=== PATIENT | female | born 1960 | race Caucasian/White ===

== ENCOUNTER 2020-03-09 07:52 | Outpatient (REF) | payer OTHER, SELFPAY ==
[2020-03-09 08:34] LABS: MANUAL DIFF FLAG NO
[2020-03-09 08:39] LABS: Basophils Percent Auto 0.4 % (0-2); Eosinophils Absolute Auto 0.2 X10*3/uL (0.0-0.4); Eosinophils Percent Auto 4.8 % (0-4); Hematocrit 40.1 % (37-47); Hemoglobin 12.9 g/dl (12.0-16.0); Imm Gran Abs Auto 0.01 X10*3/uL (0.00-0.03); Imm Gran Pct Auto 0.2 % (0.0-0.4); Lymphocytes Absolute Auto 1.7 X10*3/uL (1.2-4.9); Lymphocytes Percent Auto 37.7 % (20-40); Mean Corpuscular HGB Conc 32.2 g/dl (31.0-35.0); Mean Corpuscular Hemoglobin 30.1 pg (27.0-33.0); Mean Corpuscular Volume 93.7 fL (80-98); Mean Platelet Volume 9.1 fL (9.4-12.3); Monocytes Absolute Auto 0.3 X10*3/uL (0.1-1.2); Monocytes Percent Auto 7.2 % (2-11); Neutrophils Absolute Auto 2.3 X10*3/uL (2.0-8.3); Neutrophils Percent Auto 49.7 % (45-73); Platelet Count 314 X10*3/uL (160-400); Red Blood Count 4.28 X10*6/uL (4.20-5.50); Red Cell Distribution Width 13.4 % (11.0-16.0); White Blood Count 4.6 X10*3/uL (4.8-10.8)
[2020-03-09 08:54] LABS: Estimated Average Glucose 108 mg/dL; Hemoglobin A1c % 5.4 %
[2020-03-09 09:09] LABS: Alanine Aminotransferase 16 U/L (0-31); Albumin Level 4.4 g/dL (3.5-5.0); Alkaline Phosphatase 82 U/L (39-117); Anion Gap 12 (12-20); Aspartate Amino Transferase 19 U/L (5-31); Bilirubin Total 0.6 mg/dL (0.0-1.0); Blood Urea Nitrogen 19 mg/dL (9-16); Calcium 10.5 mg/dL (8.4-10.2); Carbon Dioxide 28 mmol/L (22-29); Chloride 103 mmol/L (96-108); Cholesterol 250 mg/dL; Estimated Glomerular Filt Rate > 60; Glucose Random 95 mg/dL (60-115); HDL Cholesterol 60 mg/dL; LDL Cholesterol Calculated 162 mg/dl; Magnesium 2.1 mg/dL (1.6-2.6); Potassium 4.5 mmol/l (3.3-5.1); Sodium 138 mmol/L (135-145); Total Protein 7.2 g/dL (6.5-8.0); Triglycerides 142 mg/dL
[2020-03-09 09:26] LABS: Thyroid Stimulating Hormone 4.96 uIU/mL (0.32-4.0); Vitamin D 25-OH Total 29.3 ng/mL (>30)
[2020-03-09 09:28] LABS: HIV AB/AG Nonreactive (Nonreactive); HIV Num 1 0.13 S/CO (0.00-0.99); ~HepC Num1 0.07 S/CO (0.00-0.79); ~Hepatitis C Antibody Nonreactive (Nonreactive)
[2020-03-10 13:06] LABS: Calcium (PTHI) 10.9 mg/dL (8.6-10.4); PTHI 61 pg/mL (14-64)
== END 2020-03-09 07:53 | disposition home or self-care (01) ==
LOC: HO.LAB 07:52
PROVIDERS: PCP Internal Medicine; Visit Provider Internal Medicine
DX: E78.2 Mixed hyperlipidemia (principal); R73.01 Impaired fasting glucose; R00.2 Palpitations; R63.5 Abnormal weight gain; E21.3 Hyperparathyroidism, unspecified; Z11.59 Encounter for screening for other viral diseases
CPT/HCPCS: 36415; 80053; 80061; 82306; 83036; 83735; 83970; 84443; 85025; 86803; 87389

== ENCOUNTER 2020-03-10 13:18 | Outpatient (REF) | payer OTHER, SELFPAY ==
[2020-03-10 13:24] VITALS: BMI 33.6
[2020-03-10 13:27] VITALS: BP 134/73; PULSE 81; RESP 18; O2SAT 98
[2020-03-10 14:31] VITALS: BP 130/75; PULSE 65; TEMP 37.6; O2SAT 99
--- NOTE | 2020-03-10 15:12 | W.PM.OPN ---
Operative Note Operative Note Narrative: Preoperative diagnosis: Cyst of scalp Postoperative diagnosis: Same Procedure: Excision of cyst of scalp Anesthesia: Local 1% lidocaine with epinephrine 4 cc Estimated blood loss: 3 cc Specimen: 2 cysts of scalp Immediate complications: None Indications: This is a 59-year-old female who has a history of an enlarging cyst of her posterior scalp. She has developed tenderness associated with it and excision is planned. She is familiar with the technique and risks of infection bleeding and scarring. Procedure in detail: With her in the prone position, after performing time-out procedure and identifying the location of the cyst, the hair overlying the cyst was trimmed. The area was then prepped with Betadine solution and was draped sterilely. Skin and subcutaneous tissues overlying the cyst were infiltrated with local anesthetic. Incision was made over the central aspect and was carried down into the immediate subcutaneous tissues. The cyst was identified and was dissected free. In the process, the was said determined that there were 2 cysts and each was dissected free and removed in entirety. Both were ruptured during dissection. There was no significant bleeding from the wound. The wound was irrigated with saline solution and was closed with interrupted sutures of 300 surgery pro. The area was cleansed with saline solution and bacitracin ointment was applied. She tolerated the procedure well. She will keep the area dry for 24 hours, will use acetaminophen as needed for pain, and will be seen in the office in about 1 week for wound check and suture removal.
== END 2020-03-10 13:19 | disposition home or self-care (01) ==
LOC: HO.MS 13:18
PROVIDERS: PCP Internal Medicine; Visit Provider Surgery
DX: L72.11 Pilar cyst (principal)
CPT/HCPCS: 11421; 11422; 88304

== ENCOUNTER 2020-03-29 07:30 | Outpatient (REF) | payer OTHER, SELFPAY ==
--- NOTE | 2020-03-29 07:35 | MM_ITS ---
EXAMINATION: MM SCREENING DIGITAL BREAST TOMOSYNTHESIS, BILATERAL CLINICAL INFORMATION: Screening. Asymptomatic. Family history breast cancer mother age 45, sister age 38. The lifetime risk of breast cancer based on the Tyrer-Cuzick Model is 24%. COMPARISON: Mammography: 03/06/2019, 02/27/2018, 12/15/2016, 09/17/2014; MRI breast report 11/29/2015 TECHNIQUE: Digital breast tomosynthesis is performed in both the craniocaudal and mediolateral oblique views along with computer-aided detection (CAD). Synthesized 2D images are generated from the tomosynthesis. FINDINGS: There are scattered areas of fibroglandular density (ACR BI-RADS breast composition Category b). There are no significant masses, abnormal calcifications, or other abnormalities. Parenchymal pattern is similar to prior studies. There are biopsy clip markers again seen mid upper outer left breast and 3:00 left breast. The axilla and skin contours are unremarkable. No significant changes from prior studies. MM/MM tomosynthesis screening BI IMPRESSION: No mammographic evidence of malignancy. ASSESSMENT: BI-RADS 1: Negative RECOMMENDATION: 1. Routine annual mammography screening. 2. The lifetime risk of breast cancer based on the Tyrer-Cuzick Model is 24%. Additional annual adjunct screening with breast MRI may be of benefit in women with a risk score of 20% or greater. This patient's information was entered into a reminder system with a target due date for their next mammogram.
== END 2020-03-29 07:31 | disposition home or self-care (01) ==
LOC: HO.MAMMO 07:30
PROVIDERS: PCP Internal Medicine; Visit Provider Surgery
DX: Z12.31 Encounter for screening mammogram for malignant neoplasm of breast (principal)
CPT/HCPCS: 77063; 77067

== ENCOUNTER 2020-11-05 11:00 | Outpatient (RCR) | payer OTHER, SELFPAY | END 2020-12-08 09:47 | disposition home or self-care (01) | LOC: HO.PT 11:00 | PROVIDERS: PCP Internal Medicine; Visit Provider Podiatrist | DX: M72.2 Plantar fascial fibromatosis (principal) | CPT/HCPCS: 97033; 97035; 97110; 97140; 97161; 97535 ==

== ENCOUNTER 2020-12-24 08:03 | Outpatient (REF) | payer OTHER, SELFPAY ==
[2020-12-24 08:50] LABS: Alanine Aminotransferase 26 U/L (0-31); Albumin Level 4.4 g/dL (3.5-5.0); Alkaline Phosphatase 76 U/L (39-117); Anion Gap 10 (12-20); Aspartate Amino Transferase 20 U/L (5-31); Bilirubin Total 0.5 mg/dL (0.0-1.0); Blood Urea Nitrogen 22 mg/dL (9-16); Calcium 10.3 mg/dL (8.4-10.2); Carbon Dioxide 27 mmol/L (22-29); Chloride 110 mmol/L (96-108); Cholesterol 259 mg/dL; Estimated Glomerular Filt Rate > 60; Glucose Random 103 mg/dL (60-115); HDL Cholesterol 63 mg/dL; LDL Cholesterol Calculated 177 mg/dl; Potassium 4.2 mmol/L (3.3-5.1); Sodium 143 mmol/L (135-145); Total Protein 6.9 g/dL (6.5-8.0); Triglycerides 99 mg/dL
[2020-12-24 09:10] LABS: Thyroid Stimulating Hormone 4.65 uIU/mL (0.32-4.0)
== END 2020-12-24 08:04 | disposition home or self-care (01) ==
LOC: HO.LAB 08:03
PROVIDERS: PCP Internal Medicine; Visit Provider Internal Medicine
DX: E03.9 Hypothyroidism, unspecified (principal); E83.52 Hypercalcemia; E78.00 Pure hypercholesterolemia, unspecified
CPT/HCPCS: 36415; 80053; 80061; 84443

== ENCOUNTER → 2021-01-27 08:56 | Outpatient (REF) | payer OTHER, SELFPAY ==
--- NOTE | ~2021-01-27 | NM_ITS ---
EXAMINATION: OK THREE-PHASE BONE SCAN CLINICAL INFORMATION: Stress fracture right foot, initial encounter for fracture. No injury. Low back pain on and off. COMPARISON: None TECHNIQUE: Following intravenous administration of 32 mCi of 99m-technetium MDP, a three-phase bone scan of both feet was obtained. In addition to whole-body, third phase was performed. FINDINGS: On first phase of bone scan, there is normal symmetrical perfusion seen to both feet. On second phase of bone scan, no abnormal blood pool activity seen in either foot. On third phase of bone scan, there is increased activity seen along the right calcaneal heel likely related to an enthesophyte or bursitis. There are no right foot x-rays available for comparison. The three-phase bone scan left foot is unremarkable. On whole body third phase imaging, there is no abnormal activity seen in the rest of the whole body scan. OK/OK bone 3 phase IMPRESSION: Three-phase bone scan of both feet. On third phase bone scan, there is moderate activity seen along the right calcaneal heel likely related to calcaneal heel spur or calcaneal bursitis. There are no right foot x-rays available for comparison. Correlate with x-rays. The rest of the whole body appears unremarkable.
== END ==
LOC: HO.NUCMED 08:56
PROVIDERS: PCP Internal Medicine; Visit Provider Podiatrist
DX: M84.374A Stress fracture, right foot, initial encounter for fracture (principal); X58.XXXA Exposure to other specified factors, initial encounter; Y93.9 Activity, unspecified; Y92.9 Unspecified place or not applicable; Y99.9 Unspecified external cause status
CPT/HCPCS: 78315; A9503

== ENCOUNTER 2021-06-14 07:40 | Outpatient (REF) | payer OTHER, SELFPAY ==
--- NOTE | ~2021-06-14 | MM_ITS ---
EXAMINATION: MM SCREENING DIGITAL BREAST TOMOSYNTHESIS, BILATERAL CLINICAL INFORMATION: Screening. Asymptomatic. Family history premenopausal breast cancer, mother and sister The lifetime risk of breast cancer based on the Tyrer-Cuzick Model is 17%. COMPARISON: Mammography: 03/29/2020, 03/06/2019, 02/27/2018 TECHNIQUE: Digital breast tomosynthesis is performed in both the craniocaudal and mediolateral oblique views along with computer-aided detection (CAD). Synthesized 2D images are generated from the tomosynthesis. FINDINGS: There are scattered areas of fibroglandular density (ACR BI-RADS breast composition Category b). Parenchymal pattern is similar to prior studies. There is no interval significant mass or architectural abnormality or developing density. There are 2 biopsy clip markers again noted left breast mid central 3:00 and mid upper outer quadrant. There are scattered benign round and rim and coarse calcifications again seen. The axilla and skin contours are unremarkable. MM/MM tomosynthesis screening BI IMPRESSION: No mammographic evidence of malignancy. ASSESSMENT: BI-RADS 2: Benign RECOMMENDATION: Routine annual mammography screening. This patient's information was entered into a reminder system with a target due date for their next mammogram.
== END 2021-06-14 07:41 | disposition home or self-care (01) ==
LOC: HO.MAMMO 07:40
PROVIDERS: Visit Provider Internal Medicine
DX: Z12.31 Encounter for screening mammogram for malignant neoplasm of breast (principal)
CPT/HCPCS: 77063; 77067

== ENCOUNTER 2022-01-12 08:00 | Outpatient (REF) | payer OTHER, SELFPAY ==
[2022-01-12 09:53] LABS: Alanine Aminotransferase 22 U/L (0-31); Albumin Level 4.3 g/dL (3.5-5.0); Alkaline Phosphatase 89 U/L (39-117); Anion Gap 13 (12-20); Aspartate Amino Transferase 22 U/L (5-31); Bilirubin Total 0.5 mg/dL (0.0-1.0); Blood Urea Nitrogen 19 mg/dL (9-16); Calcium 10.5 mg/dL (8.4-10.2); Carbon Dioxide 28 mmol/L (22-29); Chloride 106 mmol/L (96-108); Cholesterol 263 mg/dL; Estimated Glomerular Filt Rate > 60; Glucose Random 92 mg/dL (60-115); HDL Cholesterol 56 mg/dL; LDL Cholesterol Calculated 192 mg/dl; Potassium 4.5 mmol/L (3.3-5.1); Sodium 142 mmol/L (135-145); Total Protein 7.2 g/dL (6.5-8.0); Triglycerides 76 mg/dL
== END 2022-01-12 08:01 | disposition home or self-care (01) ==
LOC: HO.LAB 08:00
PROVIDERS: PCP Internal Medicine; Visit Provider Internal Medicine
DX: E78.00 Pure hypercholesterolemia, unspecified (principal); R03.0 Elevated blood-pressure reading, without diagnosis of hypertension
CPT/HCPCS: 36415; 80053; 80061

== ENCOUNTER 2022-03-20 09:24 | Outpatient (REF) | payer OTHER, SELFPAY ==
[2022-03-20 10:59] LABS: Alanine Aminotransferase 23 U/L (0-31); Aspartate Amino Transferase 23 U/L (5-31); Cholesterol 179 mg/dL; Free T4 (Free Thyroxine) 0.99 ng/dL (0.71-1.85); HDL Cholesterol 58 mg/dL; LDL Cholesterol Calculated 106 mg/dl; Thyroid Stimulating Hormone 3.73 uIU/mL (0.32-4.0); Triglycerides 78 mg/dL
== END 2022-03-20 09:25 | disposition home or self-care (01) ==
LOC: HO.LAB 09:24
PROVIDERS: PCP Internal Medicine; Visit Provider Internal Medicine
DX: E78.00 Pure hypercholesterolemia, unspecified (principal); E03.9 Hypothyroidism, unspecified
CPT/HCPCS: 36415; 80061; 84439; 84443; 84450; 84460

== ENCOUNTER 2022-07-08 08:33 | Outpatient (REF) | payer OTHER, SELFPAY ==
--- NOTE | ~2022-07-08 | MM_ITS ---
EXAMINATION: MM SCREENING DIGITAL BREAST TOMOSYNTHESIS, BILATERAL CLINICAL INFORMATION: Screening. Asymptomatic. Family history breast cancer, mother, sister. The lifetime risk of breast cancer based on the Tyrer-Cuzick Model is 17%. COMPARISON: Mammography: 06/14/2021, 03/29/2020, 03/06/2019, 02/09/2018 TECHNIQUE: Digital breast tomosynthesis is performed in both the craniocaudal and mediolateral oblique views along with computer-aided detection (CAD). Synthesized 2D images are generated from the tomosynthesis. FINDINGS: There are scattered areas of fibroglandular density (ACR BI-RADS breast composition Category b). There are no significant masses, abnormal calcifications, or other abnormalities. No architectural abnormality or developing density or significant change from prior studies. There are 2 biopsy clip markers central and outer left breast. The axilla are unremarkable. MM/MM tomosynthesis screening BI IMPRESSION: No mammographic evidence of malignancy. ASSESSMENT: BI-RADS 1: Negative RECOMMENDATION: Routine annual mammography screening. This patient's information was entered into a reminder system with a target due date for their next mammogram.
== END 2022-07-08 08:34 | disposition home or self-care (01) ==
LOC: HO.MAMMO 08:33
PROVIDERS: Visit Provider Internal Medicine
DX: Z12.31 Encounter for screening mammogram for malignant neoplasm of breast (principal)
CPT/HCPCS: 77063; 77067

== ENCOUNTER 2023-01-24 10:32 | Outpatient (REF) | payer OTHER, SELFPAY ==
[2023-01-24 10:46] LABS: MANUAL DIFF FLAG NO
[2023-01-24 11:22] LABS: Basophils Percent Auto 0.5 % (0-2); Eosinophils Absolute Auto 0.3 X10*3/uL (0.0-0.4); Eosinophils Percent Auto 4.9 % (0-4); Hematocrit 39.9 % (37.0-47.0); Imm Gran Abs Auto 0.02 X10*3/uL (0.00-0.03); Imm Gran Pct Auto 0.3 % (0.0-0.4); Lymphocytes Percent Auto 33.9 % (20-40); Mean Corpuscular HGB Conc 32.6 g/dl (31.0-35.0); Mean Corpuscular Hemoglobin 30.9 pg (27.0-33.0); Mean Corpuscular Volume 94.8 fL (80.0-98.0); Mean Platelet Volume 9.3 fL (9.4-12.3); Monocytes Absolute Auto 0.4 X10*3/uL (0.1-1.2); Monocytes Percent Auto 6.2 % (2-11); Neutrophils Absolute Auto 3.2 x10*3/uL (2.0-8.3); Neutrophils Percent Auto 54.2 % (45-73); Platelet Count 303 X10*3/uL (160-400); Red Blood Count 4.21 X10*6/uL (4.20-5.50); Red Cell Distribution Width 13.5 % (11.0-16.0)
[2023-01-24 13:22] LABS: Alanine Aminotransferase 22 U/L (0-31); Albumin Level 4.2 g/dL (3.5-5.0); Alkaline Phosphatase 92 U/L (39-117); Anion Gap 11 (12-20); Aspartate Amino Transferase 24 U/L (5-31); Bilirubin Total 0.5 mg/dL (0.0-1.0); Blood Urea Nitrogen 17 mg/dL (9-16); Calcium 10.6 mg/dL (8.4-10.2); Carbon Dioxide 28 mmol/L (22-29); Chloride 107 mmol/L (96-108); Cholesterol 172 mg/dL (<200); Estimated Glomerular Filt Rate > 60; Glucose Random 90 mg/dL (60-115); HDL Cholesterol 54 mg/dL (>40); LDL Cholesterol Calculated 101 mg/dL (<100); Magnesium 2.2 mg/dL (1.6-2.6); Potassium 4.1 mmol/L (3.3-5.1); Sodium 142 mmol/L (135-145); Total Protein 7.2 g/dL (6.5-8.0); Triglycerides 88 mg/dL (<150)
[2023-01-24 13:29] LABS: Free T4 (Free Thyroxine) 0.93 ng/dL (0.71-1.85); Thyroid Stimulating Hormone 4.41 uIU/mL (0.32-4.0)
== END 2023-01-24 10:33 | disposition home or self-care (01) ==
LOC: HO.LAB 10:32
PROVIDERS: PCP Internal Medicine; Visit Provider Internal Medicine
DX: E78.00 Pure hypercholesterolemia, unspecified (principal); E21.3 Hyperparathyroidism, unspecified
CPT/HCPCS: 36415; 80053; 80061; 83735; 84439; 84443; 85025

== ENCOUNTER 2023-01-29 11:33 | Outpatient (REF) | payer OTHER, SELFPAY ==
--- NOTE | ~2023-01-29 | XR_ITS ---
EXAMINATION: XR CHEST CLINICAL INFORMATION: Intermittent hemoptysis for 3 to 4 months. COMPARISON: None available. TECHNIQUE: 2 views of the chest were obtained. FINDINGS: 5.4 x 3.9 cm soft tissue mass identified right paratracheal region, likely overlying the middle mediastinum on lateral view. There is mild tracheal deviation to the left. No significant hilar adenopathy. Heart size within normal limits. Pulmonary vessels within normal limits. Subcentimeter pulmonary nodular densities not excluded in the left apex and right mid lung. Bony structures are intact. XR/XR chest 2V IMPRESSION: Right paratracheal mass. Pulmonary nodules not excluded. IV contrast-enhanced CT of the chest recommended. At the time of this dictation, PSA service contacted to alert referring physician to findings and recommendations.
== END 2023-01-29 11:34 | disposition home or self-care (01) ==
LOC: HO.XRAY 11:33
PROVIDERS: PCP Internal Medicine; Visit Provider Internal Medicine
DX: R04.2 Hemoptysis (principal)
CPT/HCPCS: 71046

== ENCOUNTER 2023-02-06 14:30 | Outpatient (REF) | payer OTHER, SELFPAY ==
--- NOTE | ~2023-02-06 | CT_ITS ---
EXAMINATION: CT CHEST WITH CONTRAST CLINICAL INFORMATION: Cough. COMPARISON: None available. TECHNIQUE: Multidetector volumetric CT imaging of the chest was obtained after the administration of 50 mL of Omnipaque 350 intravenous contrast without immediate adverse reactions. Axial MIP volume rendering provided. Sagittal and coronal reformatted images were obtained. This CT examination was performed using dose optimization techniques as appropriate, variously including the following: *Automated exposure control *Adjustment of mA and/or kV according to patient size (this includes techniques or standardized protocols for targeted exams where dose is matched to indication/reason for exam; i.e. 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 LUNGS: There is a lobulated right upper lobe mass adjacent to the trachea measuring 4.9 x 4.8 x 5.4 cm. The mass extends in the right mediastinum and is in close approximation to right lateral tracheal wall, posterior wall of SVC and lateral wall of upper esophagus. There is distal right apical obstructive scarring or atelectasis. There is a 1.2 cm nodule in the right suprahilar region/lower lobe abutting the major fissure on axial slice 23/4, 4 mm nodule right lower lobe axial image 22/4, 3 mm nodules right upper lobe axial image 20/4 and 21/4, 2 mm nodule right middle lobe adjacent to the minor fissure axial image 21/4, 4 mm nodule right lower lobe laterally axial image 31/4, 6 mm nodule right middle lobe axial image 29/4, 4 mm nodules in the lingula image 32/4, 31/4. In addition there are several additional nodules seen in both lower lobes. MEDIASTINUM: Extension of right upper lobe mass in the right mediastinum adjacent to the trachea, SVC and esophagus. Small right pretracheal 1 cm lymph node is seen on axial slice 22/3 and 1 cm lymph node in anterior mediastinum on axial slice 20/3. Central trachea and the bronchi are widely patent. The thyroid lobes are symmetric and normal. Heart size is normal. No pericardial effusion seen. There are no coronary artery calcifications present. Ascending aorta measures 4.5 x 4.3 cm just above the aortic valve and is dilated. PLEURA: There is no pleural effusion. No pleural mass or thickening. AXILLA: There are small bilateral axillary lymph nodes slightly greater in number and size on the left. The largest left axillary lymph node measures 8 mm on axial slice 13/3. UPPER ABDOMEN: Visualized liver and spleen appear unremarkable. Both adrenal glands are not fully included on these images. OSSEOUS STRUCTURES: No aggressive lytic or sclerotic process seen. CT/CT chest w IV con IMPRESSION: Large right upper lobe heterogeneous mediastinal-based mass most suggestive of primary lesion. There multiple satellite lesions in both lungs with the largest lesion measuring 1.2 cm in the right suprahilar region, lower lobe. There is metastatic small lymphadenopathy in the anterior and middle mediastinum. No pleural effusion. Aneurysmal dilatation of ascending aorta. Fleischner guidelines were followed.
== END 2023-02-06 14:31 | disposition home or self-care (01) ==
LOC: HO.CT 14:30
PROVIDERS: Visit Provider Internal Medicine
DX: J90 Pleural effusion, not elsewhere classified (principal); R06.3 Periodic breathing
CPT/HCPCS: 71260; Q9967

== ENCOUNTER 2023-02-08 12:42 | Outpatient (AMB) | payer OTHER, SELFPAY ==
[2023-02-08 13:08] VITALS: BP 172/90; PULSE 84; O2SAT 98; BMI 35.5
--- NOTE | 2023-02-08 13:08 | MHC.OFFVIS ---
Intake Vital Signs 02/08/23 13:08 Height 5 ft 6 in Weight 220 lb BMI 35.5 BP 172/90 H Blood Pressure Location Lt brachial Pulse 84 Pulse Source Pulse Oximeter Pulse Oximetry (%) 98 Oxygen Delivery Method Room Air Intake Visit Reasons: Abnormal CT scan Sizing End Bander Required: No Allergies cat dander [CATS] Allergy (Mild, Unverified 02/08/23 13:09) RUNNY NOSE dog dander [DOG] Allergy (Mild, Unverified 02/08/23 13:09) ITCHY EYES SEASONAL ALLERGIES Allergy (Mild, Uncoded 02/08/23 13:09) RUNNY NOSE ENVIRONMENTAL Allergy (Unknown, Uncoded 02/08/23 13:09) RUNNY NOSE HPI HPI Comments History of Present Illness Details The patient is here for pulmonary evaluation. The patient is a 62 year woman, lifelong nonsmoker, who is an avid singular presenting with hemoptysis and worsening dyspnea symptoms for the last few months. The patient states that she has noticed that over the summer she has been having hard time with dyspnea on exertion. Mild in severity. He has become progressively worse still. She started also noticing coughing up some small amount of blood clots. She was hoping the symptoms just go away. However in view of her worsening symptoms she did talk to her primary care doctor who requested a chest x-ray. The x-ray was a very abnormal with a mass like opacity in the right side of the mediastinum. Subsequently after that she did undergo an urgent CT scan of the chest which I personally with her. She does have a significant mediastinal mass pushing on the trachea and likely affecting the esophagus some degree along with a satellite lesions bilaterally. This is a very concerning finding. The patient also has been complaining of headaches. Her blood pressure has been elevated. She is still coughing up some blood but minimal. She is also having some wheezing on examination which is new for her. I did talk to the patient about my concerns. Because of the hemoptysis will have to perform a bronchoscopy to further address the bleeding and ultimately perform a bronchoscopy with ultrasound to sample the our primary mass that is abutting the trachea. The patient also need a PET scan in view of the satellite lesions. She denies any weight loss or night sweats. Still this is very concerning finding. [facility] Medical History (Updated 02/08/23 @ 14:04 by Luis Eduardo Thompson MD) Hemoptysis Lung mass Social History (Updated 02/08/23 @ 13:10 by ARABELLA Soares) Patient Tobacco Use Status: Never used Tobacco Review of Systems Const Reports fatigue, Denies fever(s), Reports weight gain and Denies weight loss ENT Reports nasal congestion and Reports nasal discharge Card Denies chest pain and Reports dyspnea on exertion Resp Reports cough, Reports hemoptysis, Reports dyspnea on exertion and Reports wheezing GI Reports no additional complaints Musc Reports no additional complaints Skin/Breast Denies rash Neuro Reports no additional complaints Endo Reports fatigue Sabino/Lymph Denies easy bruising and Denies lymphadenopathy Aller/Immun Reports wheezing Physical Exam Vital Signs: Last Vital Signs Pulse 84 02/08/23 13:08 BP 172/90 H 02/08/23 13:08 Pulse Ox 98 02/08/23 13:08 Oxygen Delivery Method Room Air 02/08/23 13:08 BMI result Body Mass Index 35.5 Const General: comfortable HEENT Head: Yes normocephalic Neck Neck: Yes supple Chest Chest palpation & inspection: normal inspection of the chest Resp Effort & Inspection: normal respiratory effort and prolonged expiratory phase Auscultation: clear to auscultation bilaterally and wheezes Cardio Rate: regular rate Rhythm: regular rhythm Heart sounds: S1 normal heart sound present and S2 normal heart sound present GI Palpation (GI): Soft to palpation Skin General skin exam: no rashes or lesions noted Extrem General: Yes no clubbing, cyanosis or edema Assessment & Plan Assessment & Plan (1) Lung mass: Code(s): R91.8 - Other nonspecific abnormal finding of lung field (2) Hemoptysis: Code(s): R04.2 - Hemoptysis Plan PET urgent PFTs urgent EBUS urgent Orders: Orders PET CT fusion skull to thigh Today R91.8 - Other nonspecific abnormal finding of lung field PFT pulmonary function test Today R91.8 - Other nonspecific abnormal finding of lung field Coding Level of Care Code New Pt Level 5 (67867) Diagnoses Lung mass R91.8 Hemoptysis R04.2 Time Spent (min) 60
== END 2023-02-08 13:11 | disposition home or self-care (01) ==
PROVIDERS: PCP Internal Medicine; Referring Provider Internal Medicine; Visit Provider Hospitalist
DX: R91.8 Other nonspecific abnormal finding of lung field (principal); R04.2 Hemoptysis
CPT/HCPCS: 99205

== ENCOUNTER → 2023-02-08 12:42 | Outpatient (BNVA) | payer OTHER, SELFPAY | PROVIDERS: PCP Internal Medicine; Visit Provider Hospitalist ==

== ENCOUNTER 2023-02-09 13:14 | Outpatient (REF) | payer OTHER, SELFPAY ==
--- NOTE | 2023-02-09 14:28 | PFT_ITS ---
FLOWS: 1. FEV1 109% of predicted at 1.57 L. 2. FVC 90% of predicted at 2.86 L. 3. FEV1 to FVC ratio of 0.69. 4. No bronchodilator response. LUNG VOLUMES: 1. Total lung capacity 100% of predicted at 4.80 L. 2. Residual volume 96% of predicted at 1.61 L. 3. Slow vital capacity 101% of predicted at 2.30 L. 4. Expiratory reserve volume 65% of predicted at 0.27 L. 5. Diffusion capacity is normal. IMPRESSION: [id number] obstructive ventilatory defect with no bronchodilator response except in [id number] airways. Decreased expiratory reserve volume suggest extrathoracic restriction likely secondary to abdominal obesity. MD RIDGE Booth/MODL / [id number]
== END 2023-02-09 13:15 | disposition home or self-care (01) ==
LOC: HO.RESP 13:14
PROVIDERS: PCP Internal Medicine; Visit Provider Hospitalist
DX: R91.8 Other nonspecific abnormal finding of lung field (principal)
CPT/HCPCS: 94010; 94727; 94729

== ENCOUNTER → 2023-02-09 14:28 | Outpatient (BNV) | payer OTHER, SELFPAY | PROVIDERS: PCP Internal Medicine; Visit Provider Internal Medicine Pulmonary Disease | DX: R06.09 Other forms of dyspnea (principal) | CPT/HCPCS: 94060; 94727; 94729 ==

== ENCOUNTER 2023-02-13 09:11 | Outpatient (REF) | payer OTHER, SELFPAY ==
--- NOTE | ~2023-02-13 | PE_ITS ---
EXAMINATION: Fluorine-18 FDG PET/CT Scan CLINICAL INDICATION: Initial treatment management. Right lung mass, initially suspected on chest radiograph done on 01/29/2023 and subsequently confirmed with follow-up CT scan of the chest done on 02/06/2023. PROCEDURE: 60 minutes following the intravenous administration of 19.3 mCi of fluorine 18 FDG, images from the base of the skull to the mid thighs were obtained using a combined PET/CT scanner with CT scan based attenuation correction. No intravenous contrast was administered. Transverse, coronal, sagittal, and volume reconstruction projections were obtained. The patient's blood glucose as determined by a finger stick, was 91 mg/dl immediately prior to injection. The radiotracer was injected intravenously through the left antecubital superficial vein, without any complications. Total CT exam dose-length product 1130.14 mGy-cm * These CT images were obtained using dose optimization techniques as appropriate, variously including the following: Automated exposure control * Adjustment of mA and/or kV according to patient size (this includes techniques or standardized protocols for targeted exams where dose is matched to indication/reason for exam; i.e. extremities or head) * Use of iterative reconstruction technique COMPARISON: Chest radiograph done on 01/29/[address] of the chest done on 02/06/2023. FINDINGS: SUV max REFERENCE: Blood: 3.8; 78/267. Liver: 5.0; 116/267. NECK AND VISUALIZED HEAD: Asymmetric focal nodular tracer avidity is noted at left upper posterolateral part of the neck inseparable from the adjacent musculature with SUV max of 6.4 (21/267), may represent left-sided cervical level 5 lymph node. Bilateral prominent tracer avidity is noted in the region of the palatine tonsil, likely represent physiologic changes with SUV max of 7.5 on the right and 7.7 on the left (26/267). Mild asymmetric tracer avidity is noted within the posterior inferior aspect of the right lobe of the thyroid gland associated with a subtle asymmetric mixed density nodule measuring approximately 1.5 cm (47/267) with SUV max of 5.0 (47/267), for which a follow-up thyroid ultrasound and biopsy is usually recommended. There are no tracer avid, morphologically abnormal, pathologically enlarged supraclavicular lymphadenopathy on either side. THORAX: The index solid relatively well-circumscribed right-sided paratracheal superior mediastinal pleural-based lung mass seen at the level of the arch of the aorta currently measures approximately 4.3 x 3.3 cm, shows intense tracer avidity with SUV max of 18.2 (63/267). Ipsilateral tracer avid right suprahilar, perihilar lymph nodes are noted. Note is also made of a separate 1.2 cm mild tracer avid lung nodule seen within the central part of the superior segment of right lower lobe with SUV max of 4.4 (70/267). Additional multiple solid subcentimeter lung nodules seen bilaterally better visualized on the prior diagnostic CT study done on 02/06/2023 and do not show any tracer avidity on this current study. There are no tracer avid bilateral axillary, internal mammary or contralateral/left sided hilar or mediastinal lymph node or pleural or pericardial effusion. ABDOMEN AND PELVIS: No focal liver or splenic lesion. The gallbladder, biliary tree, pancreas appear unremarkable. Both adrenals are unremarkable. Solitary radiopaque nonobstructing subcentimeter calculus is noted within the inferior-anterior calyx of the left kidney. Otherwise both kidneys, both renal pelvicalyceal system and the bladder appear unremarkable. There are no tracer avid, pathologically enlarged, morphologically abnormal retroperitoneal, mesenteric, pelvic and/or groin lymphadenopathy. The bowel loops are decompressed. There are no tracer avid omental or peritoneal disease or free fluid or free air. MUSCULOSKELETAL: Remarkable for intense tracer avidity at T6 vertebral body to the left of the midline associated with subtle underlying sclerosis with SUV max of 8.9 (84/267), highly suspicious for metastatic osseous disease. No other definite suspicious osseous disease is identified throughout the remainder of the entire visualized skeleton. VASCULAR: Abnormal. The ascending thoracic aorta measures 4.6 x 3.9 cm (72/267), consistent with aneurysm. THE SITE(S) OF MOST INTENSE FDG AVIDITY AND SUV MAX: The index right superior mediastinal pleural-based lung mass with SUV max of 18.2. PET/PET CT fusion skull to thigh IMPRESSION: 1. Previously documented, clinically known solid relatively well-circumscribed right superior mediastinal pleural-based lung mass currently measures approximately 4.3 cm at its maximum dimension, shows intense tracer avidity with SUV max of 18.2, highly suspicious for malignancy. 2. There are multiple bilateral subcentimeter non-tracer avid lung nodules present, too small for accurate characterization. Differential remains metastatic lung nodule versus old granulomatous disease or combination thereof. 3. Note is made of a dominant 1.2 cm noncalcified central lung nodule seen within the superior segment of right lower lobe of the lung associated with mild tracer avidity with SUV max of 4.4, suspicious for ipsilateral metastatic lung nodule and less likely to be synchronous second primary. Note is also made of ipsilateral right perihilar, suprahilar tracer avid lymph nodes. 4. Asymmetric focal nodular tracer avidity at left upper posterolateral part of the neck inseparable from the adjacent musculature with SUV max of 6.4, may represent left-sided cervical level 5 lymph node. Prominent tracer avidity involving bilateral palatine tonsils likely represent physiologic changes. 5. Tracer avid mixed density right thyroid nodule measuring 1.5 cm and SUV max of 5.0, for which follow-up thyroid ultrasound and biopsy is usually recommended. 30-40% of PET positive lesions are found to be thyroid cancer. [place] thyroid [employer] guidelines recommend biopsy of all PET positive nodules greater than 1 cm that are not definitely benign on the diagnostic thyroid ultrasound. 6. Solitary intense tracer avidity associated with subtle asymmetric focal area of sclerosis at T6 vertebral body to the left of the midline with SUV max of 8.9, highly suspicious for osseous metastatic disease. 7. No evidence of metastatic disease to the abdomen and pelvis.
== END 2023-02-13 09:12 | disposition home or self-care (01) ==
LOC: HO.PET 09:11
PROVIDERS: PCP Internal Medicine; Visit Provider Hospitalist
DX: Z13.89 Encounter for screening for other disorder (principal)

== ENCOUNTER 2023-02-15 06:28 | Day surgery (SDC) | payer OTHER, SELFPAY ==
[2023-02-13 13:55] VITALS: BMI 40.2
--- NOTE | 2023-02-14 09:41 | P.CONAN_ITS ---
Documented by User: Mary Jane Frye NP 02/14/23 14:35 HPI - Anesthesia Eval Consult details Narrative: 62yo F for Endoscopic Bronchial Ultrasound Per Pulmo note: she does have a significant mediastinal mass pushing on the trachea and likely affecting the esophagus some degree along with a satellite lesions bilaterally. FOR[facility]LY [facility] Active Problems Active Problems: All Active Problems (Updated 02/09/23 @ 08:59 by Lisa Santiago PA-C) Lung mass (Acute) Hemoptysis (Acute) BORGES (dyspnea on exertion) (Acute) Past Medical History Medical History AAA (abdominal aortic aneurysm) BROGES (dyspnea on exertion) History of COVID-19 Osteopenia (~2015) Hyperlipidemia Hemoptysis Lung mass Family History Family History Father Colon cancer Mother Breast cancer Surgical History Surgical History History of cervical biopsy History of endoscopy History of colonoscopy History of extraction of renal calculus Social History Social History Are you a primary director day care center to a significant other at home: No Patient Tobacco Use Status: Never used Tobacco Have you been hit, kicked, punched, or otherwise hurt by someone within the past year? If so, by whom?: No Are you DNR?: No Advance Directives: No Advance Directives Information Provided: Yes Recently lost weight without trying: No Eating poorly because of decreased appetite: No Nutrition Risks: No Nutritional Risk Patient : No Meds Allergies Allergy/AdvReac Type Severity Reaction Status Date / Time cat dander [CATS] Allergy Mild RUNNY NOSE Unverified 02/08/23 13:09 dog dander [DOG] Allergy Mild ITCHY EYES Unverified 02/08/23 13:09 ENVIRONMENTAL Allergy Mild RUNNY NOSE Uncoded 02/13/23 10:12 SEASONAL ALLERGIES Allergy Mild RUNNY NOSE Uncoded 02/08/23 13:09 Home Medications Medication Instructions Recorded Confirmed Last Taken Type atorvastatin 10 mg tablet 10 mg PO DAILY 02/08/23 02/13/23 Unknown History ketoconazole 2 % shampoo 1 appl topical DAILY 02/08/23 02/13/23 Unknown History iqrhaxe-jrsawtdheefed-knuozzwn 250 1 tab PO Q4-6H PRN Pain 02/09/23 02/13/23 Unknown History mg-250 mg-65 mg tablet (Excedrin Extra Strength) cholecalciferol (vitamin D3) 50 50 mcg PO DAILY 02/09/23 02/13/23 Unknown History mcg (2,000 unit) capsule coenzyme Q10 300 mg capsule 300 mg PO DAILY 02/09/23 Unknown History ibuprofen 200 mg tablet (Motrin IB) 200 mg PO Q6H PRN Pain 02/09/23 02/13/23 Unknown History magnesium 200 mg tablet 200 mg PO DAILY 02/09/23 02/13/23 Unknown History mometasone 0.1 % topical solution 1 appl topical DAILY 02/09/23 02/13/23 Unknown History nystatin 100,000 unit/gram topical 1 appl topical BID 02/09/23 02/13/23 Unknown History cream cetirizine 10 mg tablet 10 mg PO DAILY 02/13/23 02/13/23 Unknown History Exam Exam Date and Time: February 14, 2023 0941 Height,Weight and Vital Signs: Height 5 ft 2 in Weight 99.79 kg Pertinent Lab Results Pertinent Lab Results: Laboratory Tests 01/24/23 10:45 WBC 6.0 Hgb 13.0 Hct 39.9 Plt Count 303 Sodium 142 Potassium 4.1 Chloride 107 Carbon Dioxide 28 BUN 17 H Creatinine 0.86 Narrative Narrative: EKG 01/[address] 01/2023 CT chest w IV con IMPRESSION: Large right upper lobe heterogeneous mediastinal-based mass most suggestive of primary lesion. There multiple satellite lesions in both lungs with the largest lesion measuring 1.2 cm in the right suprahilar region, lower lobe. There is metastatic small lymphadenopathy in the anterior and middle mediastinum. No pleural effusion. Aneurysmal dilatation of ascending aorta. Assessment and Plan Assessment Anesthesia Assessment: Chart Reviewed Documented by User: Chantell Gan MD 02/15/23 08:09 PMFSH Active Problems Active Problems: All Active Problems (Updated 02/15/23 @ 07:20 by Chantell Gan MD) Lung mass (Acute) Hemoptysis (Acute) BORGES (dyspnea on exertion) (Acute) HTN- just diagnosed. Started lisinopril last night 02/14/23 Past Medical History Medical History AAA (abdominal aortic aneurysm) BORGES (dyspnea on exertion) History of COVID-19 Osteopenia (~2015) Hyperlipidemia Hemoptysis Lung mass Family History Family History Father Colon cancer Mother Breast cancer Family history of problems with anesthesia: No Surgical History Surgical History History of cervical biopsy History of endoscopy History of colonoscopy History of extraction of renal calculus History of Problems with Anesthesia: No Social History Social History Are you a primary director day care center to a significant other at home: No Patient Tobacco Use Status: Never used Tobacco Have you been hit, kicked, punched, or otherwise hurt by someone within the past year? If so, by whom?: No Are you DNR?: No Advance Directives: No Advance Directives Information Provided: Yes Recently lost weight without trying: No Eating poorly because of decreased appetite: No Nutrition Risks: No Nutritional Risk Patient : No Meds Allergies Allergy/AdvReac Type Severity Reaction Status Date / Time cat dander [CATS] Allergy Mild RUNNY NOSE Unverified 02/08/23 13:09 dog dander [DOG] Allergy Mild ITCHY EYES Unverified 02/08/23 13:09 ENVIRONMENTAL Allergy Mild RUNNY NOSE Uncoded 02/13/23 10:12 SEASONAL ALLERGIES Allergy Mild RUNNY NOSE Uncoded 02/08/23 13:09 Home Medications Medication Instructions Recorded Confirmed Last Taken Type atorvastatin 10 mg tablet 10 mg PO DAILY 02/08/23 02/13/23 Unknown History ketoconazole 2 % shampoo 1 appl topical DAILY 02/08/23 02/13/23 Unknown History mxuxbhi-oalcjeynxnmbk-qopojqhv 250 1 tab PO Q4-6H PRN Pain 02/09/23 02/13/23 Unknown History mg-250 mg-65 mg tablet (Excedrin Extra Strength) cholecalciferol (vitamin D3) 50 50 mcg PO DAILY 02/09/23 02/13/23 Unknown History mcg (2,000 unit) capsule coenzyme Q10 300 mg capsule 300 mg PO DAILY 02/09/23 Unknown History ibuprofen 200 mg tablet (Motrin IB) 200 mg PO Q6H PRN Pain 02/09/23 02/13/23 Unknown History magnesium 200 mg tablet 200 mg PO DAILY 02/09/23 02/13/23 Unknown History mometasone 0.1 % topical solution 1 appl topical DAILY 02/09/23 02/13/23 Unknown History nystatin 100,000 unit/gram topical 1 appl topical BID 02/09/23 02/13/23 Unknown History cream cetirizine 10 mg tablet 10 mg PO DAILY 02/13/23 02/13/23 Unknown History Exam Height,Weight and Vital Signs: Height 5 ft 2 in Weight 99.79 kg Vital Signs Temp Pulse Resp BP Pulse Ox O2 Del Method 02/15/23 07:00 98.4 F 73 18 126/68 96 Room Air Airway Mallampati Class: III (Slight overbite) TM Dist: >3cm Neck ROM: Full Loose/Missing/Broken Teeth: No (Denies broken, loose, missing teeth) Heart: RRR +?murmur Lungs: CTAB Assessment and Plan Assessment Anesthesia Assessment: Anesthesia Plan Discussed Final Anesthetic Review Family History of Problems with Anesthesia: No History of Problems with Anesthesia: No NPO: Yes ASA Class: III Final Preanesthetic Review: No Changes in Pt Med Stat, Meds/Allgs Chart Reviewed, Consent Obtained/Reviewed and Anes Risks/Benef Reviewed Patient Risk: High Procedure Risk: Intermediate Assessment/Block/Sedation in SS: Assess/Block/Sedation- Anesthetic Plan Anesthetic Plan: GA and Other (Possible arterial line) Disposition: Standard PACU
[2023-02-15] VITALS (12 sets, daily range): BP systolic 103–166; BP diastolic 54–70; PULSE 73–95; RESP 18–24; TEMP 36.9–37.2; O2SAT 95–100
[2023-02-15] MEDS: Lactated Ringers 1,000 ML 100 ML IVCONT (07:50)
--- NOTE | 2023-02-15 08:06 | MHC.SHP ---
Pre-Procedural Eval Section A Date of Service: 02/15/23 The patient is an INPATIENT: No Changes since office visit: No Cold of Flu in the past 2 weeks, No New Medical Problems, No Changes in Medication and No Patient answered all questions The History & Physical has been completed within 30 days and I have reviewed it.: Yes Section B Chief Complaint: Hemoptysis Allergies: Allergies Allergy/AdvReac Type Severity Reaction Status Date / Time cat dander [CATS] Allergy Mild RUNNY NOSE Unverified 02/08/23 13:09 dog dander [DOG] Allergy Mild ITCHY EYES Unverified 02/08/23 13:09 ENVIRONMENTAL Allergy Mild RUNNY NOSE Uncoded 02/13/23 10:12 SEASONAL ALLERGIES Allergy Mild RUNNY NOSE Uncoded 02/08/23 13:09 Plan I have reviewed the history and physical and performed a pertinent physical examination on my patient. No changes have occurred unless specified. Time Spent With Patient Time: Total time managing care of this patient today ____ minutes.
--- NOTE | 2023-02-15 09:37 | P.BOP_ITS ---
Brief Operative Note Date of Service: 02/15/23 Pre-op diagnosis: lung mass Post-op diagnosis: other (lung cancer with obstruction of the RUL) Procedure: EBUS with TBNA and bronchoscopy with biopsies, washings,brushings Implants: Surgeon: Luis Eduardo Thompson MD Was an Professor Of English used for this Procedure?: No Estimated blood loss (mL): 1 Pathology: other (right paratracheal mass, RUL) Condition: stable Disposition: same day
--- NOTE | 2023-02-15 11:39 | OP_ITS ---
DATE OF SERVICE: 02/15/2023 SURGEON: Luis Eduardo Thompson MD PREOPERATIVE DIAGNOSIS: Lung mass. POSTOPERATIVE DIAGNOSIS: Lung cancer, and obstruction of the right upper lobe. PROCEDURE PERFORMED: ESTIMATED BLOOD LOSS: COMPLICATIONS: ANESTHESIA: General endotracheal anesthesia provided. Size A ET tube in place. ASSISTANTS: None. SPECIMENS: ASA: 3. PROCEDURES PERFORMED: Endobronchial ultrasound, bronchoscopy with transbronchial needle aspiration and bronchoscopy with biopsies, brushings, and washings. DESCRIPTION OF PROCEDURE: After the patient was adequately sedated and intubated, a flexible digital bronchoscope within the bronchial ultrasound, EBUS, was introduced via the ET tube to the level of the main leonidas. The ET tube was brought to about 18 cm at the lip. Using the ultrasound guidance, the right paratracheal mass was appreciated. Significant size. Using ultrasound guided real time, transbronchial needle aspirations were collected. 4 specimens were collected and sent to the onsite pathologist who demonstrated cells of carcinoma. The EBUS was then removed. No significant bleeding from that site. Was replaced with a regular bronchoscopy. The bronchoscope was navigated to the entire tracheobronchial tree that was examined up to the subsegmental level. There was an endobronchial lesion in the right upper lobe. It was nearly obstructing the whole right upper lobe about 75%. Could visualize the posterior in the anterior segment, but I cannot visualize the apical segment suggesting obstruction from this mass like density. Appeared to be hypervascular and friable in nature. Please refer to the pictures. Using forceps biopsies, endobronchial biopsies were collected from the right upper lobe, sent in formalin to the pathology. Also cytologic brushings and washings were also collected from the right upper lobe and sent to the appropriate locations as well. After the procedure, 2 ampules of epinephrine was used with good hemostasis. No evidence of any active bleeding at the end of the procedure. The bronchoscope was then removed. The total endoscopic time was 45 minutes. The patient tolerated the procedure well. Vital signs were stable, recovering well. No apparent complications and no x-ray needed. MD CL[place] Link/NICOLAS / [id number]
== END 2023-02-15 12:00 | disposition home or self-care (01) ==
PROVIDERS: PCP Internal Medicine; Visit Provider Hospitalist
PROC: (CPT 31629; principal; 2023-02-15 08:00)
DX: C34.11 Malignant neoplasm of upper lobe, right bronchus or lung (principal); C77.1 Secondary and unspecified malignant neoplasm of intrathoracic lymph nodes; R04.2 Hemoptysis; R06.09 Other forms of dyspnea; I10 Essential (primary) hypertension
CPT/HCPCS: 31629; 31623; 31652; 87070; 87205; 88112; 88172; 88173; 88177; 88305; 88341; 88342; J0171; J1100; J2250; J2371; J2405; J3010

== ENCOUNTER → 2023-02-15 06:28 | Outpatient (BNV) | payer OTHER, SELFPAY | PROVIDERS: PCP Internal Medicine; Visit Provider Hospitalist | DX: C34.11 Malignant neoplasm of upper lobe, right bronchus or lung (principal) | CPT/HCPCS: 31623; 31625; 31628 ==

== ENCOUNTER 2023-02-21 16:40 | Outpatient (REF) | payer OTHER, SELFPAY ==
--- NOTE | ~2023-02-21 | MR_ITS ---
EXAMINATION: MR BRAIN WITHOUT AND WITH CONTRAST CLINICAL INFORMATION: Right lung mass. Malignant neoplasm. Increased frequency of headaches. COMPARISON: No relevant prior imaging. TECHNIQUE: Multiplanar MR imaging of the brain was performed without and with contrast. A total of 10 mL Gadavist was utilized for this examination. FINDINGS: Postcontrast images reveal no abnormal intracranial mass or enhancement. Specifically no evidence of intracranial metastatic disease. There is no intracranial mass effect or midline shift. No abnormal extra-axial collection. Lateral and third ventricles are normal. No hydrocephalus. Midline structures including the cervicomedullary junction are normal. No acute bone marrow signal changes. There is no acute territorial infarct. No pathological magnetic susceptibility artifact. Intracranial vascular flow voids are maintained. There is no mastoid or middle ear effusion. Mild paranasal sinus mucosal thickening primarily involving the ethmoid air cells. Globes and orbits are symmetric. MR/MR head/brain wo/w con IMPRESSION: Unremarkable examination in that there is no evidence of intracranial metastatic disease.
[2023-02-21] MEDS: gadobutroL 10 ML VIAL IVPUSH (17:59)
== END 2023-02-21 16:41 | disposition home or self-care (01) ==
LOC: HO.MRI 16:40
PROVIDERS: PCP Internal Medicine; Visit Provider Hospitalist
DX: C34.90 Malignant neoplasm of unspecified part of unspecified bronchus or lung (principal); R51.9 Headache, unspecified
CPT/HCPCS: 70553; A9585

== ENCOUNTER → 2023-02-27 10:54 | Outpatient (REF) | payer OTHER, SELFPAY ==
--- NOTE | ~2023-02-27 | NM_ITS ---
EXAMINATION: NM BONE SCAN OF THE WHOLE BODY CLINICAL INFORMATION: Adenocarcinoma of the lung. Evaluate for metastatic disease to T6 vertebra. COMPARISON: Three-phase bone scan 01/27/2021. TECHNIQUE: Multiple gamma scintillation camera images of the whole body were performed 3 hours following the intravenous administration of 36 ( mCi Tc-99m MDP. FINDINGS: In the head, no abnormal activity seen in the skull or the neck region. In the thoracic cage and upper extremities, there is focal abnormal activity seen in T6 vertebra concordant with FDG uptake on PET/CT exam 02/13/2023. No additional areas of abnormal activity seen in thoracic cage or the upper extremities. In the spine, abnormal intense activity seen in the left T6 vertebra. No additional abnormal activity seen in the rest of the spine. In the pelvis, no abnormal activity is seen. In the lower extremities, mild activity seen in the left medial knee joint and right ankle joint likely is related to degenerative arthritis. No other definite bony abnormalities are noted. The urinary bladder and faint visualization of both kidneys are noted. NM/NM bone scan whole body IMPRESSION: Abnormal isotope activity left T6 vertebra consistent with metastatic disease. Mild DJD in the left knee and right ankle.
== END ==
LOC: HO.NUCMED 10:54
PROVIDERS: PCP Internal Medicine; Visit Provider Internal Medicine Medical Oncology
DX: C79.51 Secondary malignant neoplasm of bone (principal)
CPT/HCPCS: 78306; A9503

== ENCOUNTER → 2023-03-09 15:00 | Outpatient (BNV) | payer OTHER, SELFPAY | PROVIDERS: PCP Internal Medicine; Referring Provider Hospitalist; Visit Provider Internal Medicine Medical Oncology | DX: C34.90 Malignant neoplasm of unspecified part of unspecified bronchus or lung (principal) | CPT/HCPCS: 99204; 99213; 99214 ==

== ENCOUNTER 2023-03-23 11:28 | Outpatient (REF) | payer OTHER, SELFPAY ==
[2023-03-23 12:38] LABS: Anion Gap 11 (12-20); Blood Urea Nitrogen 14 mg/dL (9-16); Calcium 10.5 mg/dL (8.4-10.2); Carbon Dioxide 27 mmol/L (22-29); Chloride 107 mmol/L (96-108); Estimated Glomerular Filt Rate 57; Potassium 4.5 mmol/L (3.3-5.1); Sodium 140 mmol/L (135-145)
[2023-03-23 12:54] LABS: Vitamin D 25-OH Total 56.1 ng/mL (>30)
[2023-03-26 14:23] LABS: Calcium (PTHI) 10.5 mg/dL (8.6-10.4); PTHI 39 pg/mL (16-77)
== END 2023-03-23 11:29 | disposition home or self-care (01) ==
LOC: HO.LAB 11:28
PROVIDERS: Internal Medicine Endocrinology, Diabetes & Metabolism; PCP Internal Medicine; Visit Provider Internal Medicine Medical Oncology
DX: M85.80 Other specified disorders of bone density and structure, unspecified site (principal); E21.3 Hyperparathyroidism, unspecified; E04.1 Nontoxic single thyroid nodule
CPT/HCPCS: 36415; 80051; 82306; 82310; 82565; 83970; 84443; 84520

== ENCOUNTER 2023-04-11 13:00 | Outpatient (AMB) | payer OTHER, SELFPAY ==
--- NOTE | 2023-04-11 13:13 | MHC.OFFVIS ---
Intake Vital Signs 04/11/23 13:22 Weight 221 lb BP 130/80 Blood Pressure Location Rt brachial Position Sitting Intake Visit Reasons: TVK-Hwuommy-DAB Intake Note: Patient presents for snoring. I'm having increased headaches and my says I snore a lot and feel fatigue. Allergies cat dander [CATS] Allergy (Mild, Unverified 04/11/23 13:17) RUNNY NOSE dog dander [DOG] Allergy (Mild, Unverified 04/11/23 13:17) ITCHY EYES ENVIRONMENTAL Allergy (Mild, Uncoded 04/11/23 13:17) RUNNY NOSE SEASONAL ALLERGIES Allergy (Mild, Uncoded 04/11/23 13:17) RUNNY NOSE Medication List - Last Reconciled 04/11/23 by Frances Paredes CNP mnzvdge-qjdqjghnbtsxb-vxcainka 250-250-65 mg (Excedrin Extra Strength) 1 tab PO Q4-6H PRN atorvastatin 10 mg PO DAILY cetirizine 10 mg PO DAILY cholecalciferol (vitamin D3) 50 mcg PO DAILY coenzyme Q10 300 mg PO DAILY denosumab (Xgeva) 120 mg subcut Q4W ibuprofen (Motrin IB) 200 mg PO Q6H PRN ketoconazole 2% 1 appl topical DAILY levalbuterol tartrate 45 mcg/actuation 2 puffs inhalation Q4H PRN lisinopril 10 mg PO DAILY magnesium 200 mg PO DAILY mometasone 0.1% 1 appl topical DAILY nystatin 1 appl topical BID ondansetron 8 mg PO Q8H osimertinib 80 mg PO Q24H HPI HPI Comments History of Present Illness Details 62 y/o female patient presents for new in-person visit for sleep consultation. Pt reports she was diagnosed with stage 4 lung cancer recently and is on osimertinib. She is a non smoker. Pt reports she had chronic headache but has been better after menopause. However, she had a lot of headache during summertime. She snores, and has non refreshing sleep with daytime tiredness. Home sleep study is scheduled on 04/26/23. Sleep questionnaire: Have you ever been diagnosed with a sleep disorder? No. Have you ever had a sleep study in the past? No. Have you ever been treated for a sleep disorder? No. Do you take medications for a sleep disorder? No. Do you snore? Yes. Do you wake up gasping at night? No. Do you have episodes of apneas? No. If yes, are they witnessed? No. Do you have episodes of nocturnal chest pain or dyspnea? No. Do you have difficulty initiating sleep? No. Do you have difficulty maintaining sleep? No. Do you wake up tired? Yes. Do you have headaches upon awakening? Yes. Do you wake up with dry mouth or throat? Occasionally. Do you have GERD? Occasionally. Do you have nocturia? No. Do you have nocturnal leg cramps? No. Do you have symptoms of restless legs? No. Do you act out your dreams? No. Sleep hygiene questionnaire: What is your usual sleep routine? Usual bedtime is at 10-11 pm; Usual wake up time is at 6:-7:30 am. Do you take naps? No. Is your sleep environment cool, dark, and quiet? Yes. Do you exercise? Tried to walk. Do you take caffeine or other stimulants? 1-2 cups of coffee in the morning. Do you use electronics in bed? No. What is your work schedule? two days a week, 8 am to 4:30 pm Hypersomnolence questionnaire: Do you have daytime tiredness or fatigue? Yes. Do you easily fall asleep when inactive? No. Have you ever had episodes of sudden weakness? No. Have you ever had episodes of sudden weakness associated with strong emotions? No. PFSH Medical History (Updated 04/12/23 @ 21:46 by Frances Paredes CNP) High blood pressure Lung cancer AAA (abdominal aortic aneurysm) BORGES (dyspnea on exertion) History of COVID-19 Osteopenia (~2016) Hyperlipidemia Hemoptysis Lung mass Surgical History (Updated 03/02/23 @ 08:30 by Lisa Santiago PA-C) History of bronchoscopy History of cervical biopsy History of endoscopy History of colonoscopy History of extraction of renal calculus Family History Father Colon cancer Mother Breast cancer Thyroid disease Social History (Updated 04/11/23 @ 13:20 by ARABELLA Osorio) Household Members: Spouse Are you a primary manager medicare marketing to a significant other at home: No Alcohol intake: never Patient Tobacco Use Status: Never used Tobacco service: No Current occupational status: employed Review of Systems Const All systems reviewed & are unremarkable except as noted in HPI and below Physical Exam Vital Signs: Last Vital Signs BP 130/80 04/11/23 13:22 Const General: cooperative Orientation/consciousness: patient oriented x3 Neck Neck: Yes full ROM and Yes supple Resp Effort & Inspection: normal respiratory effort and able to speak in complete sentences Neuro General: patient oriented x3 and gait normal Cranial nerves: Yes CN's II-XII intact bilaterally Cognition (Neuro): normal cognition Gait exam (Neuro): Normal gait present Motor exam (neuro): 5/5 motor strength present throughout, Pronator motor function not present and no tremor noted Psych Appearance: grossly normal Mental Status: mental status grossly normal Speech and movement: Normal speech and movement present Affect: normal affect Attitude: cooperative Assessment & Plan Assessment & Plan (1) Snoring: Code(s): R06.83 - Snoring (2) Daytime sleepiness: Code(s): R40.0 - Somnolence Plan Pt is advised to undergo home sleep study to assess for sleep apnea. Home sleep study is scheduled. Will f/u with pt after study to discuss results and appropriate treatment options. Pt to call with any worsening concerns or questions. Coding Level of Care Code New Pt Level 3 (81422) Diagnoses Snoring R06.83 Daytime sleepiness R40.0
[2023-04-11 13:22] VITALS: BP 130/80
== END 2023-04-11 13:59 | disposition home or self-care (01) ==
PROVIDERS: PCP Internal Medicine; Visit Provider Nurse Practitioner Family
DX: R06.83 Snoring (principal); R40.0 Somnolence
CPT/HCPCS: 99203

== ENCOUNTER → 2023-04-11 13:00 | Outpatient (BNVA) | payer OTHER, SELFPAY | PROVIDERS: PCP Internal Medicine; Visit Provider Nurse Practitioner Family ==

== ENCOUNTER → 2023-04-26 14:54 | Outpatient (REF) | payer OTHER, SELFPAY | LOC: HO.SL 14:54 | PROVIDERS: Absent Provider Nurse Practitioner Family; PCP Internal Medicine; Visit Provider Hospitalist | DX: G47.33 Obstructive sleep apnea (adult) (pediatric) (principal) | CPT/HCPCS: 95806 ==

== ENCOUNTER → 2023-04-26 15:02 | Outpatient (BNV) | payer OTHER, SELFPAY | PROVIDERS: Absent Provider Nurse Practitioner Family; PCP Internal Medicine; Visit Provider Internal Medicine | DX: R06.83 Snoring (principal) | CPT/HCPCS: 95806 ==

== ENCOUNTER → 2023-05-14 12:57 | Outpatient (REF) | payer OTHER, SELFPAY ==
--- NOTE | 2023-05-14 12:57 | CA_ITS ---
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 The calculated ejection fraction is 63% by biplane method. - There is mild aortic valve regurgitation. - There is mild mitral valve regurgitation. - There is mild dilatation of the ascending aorta measuring 4.50 cm. Findings Left Ventricle Normal left ventricular cavity size. There is normal left ventricular wall thickness. The left ventricular systolic function is normal. The calculated ejection fraction is 63% by biplane method. There is no evidence of regional wall motion abnormalities. Diastolic function is normal for age. LV peak GLS -21.4% (normal). Right Ventricle Normal right ventricular cavity size and systolic function. Atria Both atria are normal in size. Aortic Valve There is a normal trileaflet aortic valve. There is no aortic valve stenosis. There is mild aortic valve regurgitation. Mitral Valve The mitral valve appears normal. There is mild mitral valve regurgitation. There is no mitral valve stenosis. Pulmonic Valve The pulmonic valve is likely normal. Tricuspid Valve Normal tricuspid valve structure. There is mild tricuspid valve regurgitation. There is no evidence of pulmonary hypertension. Great Vessels There is mild dilatation of the ascending aorta measuring 4.50 cm. Venous The inferior vena cava is normal in size and collapses greater than 50% with inspiration. Pericardium/Pleural There is no evidence of pericardial effusion. Prior Study Comparison No prior study available for comparison. Measurements 2D Linear Measurements IVSd: 0.82 0.6-0.9/0.6-1.0 cm LVIDd: 4.85 3.9-5.3/4.2-5.9 cm LVIDd Index: 2.50 2.4-3.2/2.2-3.1 cm/m2 LVIDs: 2.33 2.0-3.6 cm LVPWd: 0.95 0.7-1.1 cm LA Diam: 3.30 2.7-3.8/3.0-4.0 cm LAIDs Index: 1.70 1.5-2.3 cm/m2 LV Mass: 183.21 67-162/88-224 g LV Mass Index: 94.44 43-95/49-115 g/m2 LVOT Diam: 2.00 3.0+(-)1.3 cm 2D Systolic Function EF 4C: 65.90 >55% EF 2C: 61.00 >55% EF BiP: 63.40 >55% Mitral Valve MV Pk E: 0.99 MV PK A: 0.81 MV Decel Time: 238.00 E/A: 1.20 E'Lateral: 9.36 E'Medial: 6.85 E/E' Med: 14.40 E/E' Lat: 10.50 PHT: 70.00 MVA PHT: 3.14 Decel [place]: 4.14 Aortic Valve AoV Pk Ever: 1.73 AoV Mn Ever: 1.15 AoV VTI: 0.36 AoV Pk Grad: 12.00 Aov Mn Grad: 6.00 JORGE Cont.VTI: 2.36 AI Pk Ever: 3.87 AI [place]: 1.62 LVOT LVOT Pk Ever: 1.25 LVOT Mn Ever: 0.86 LVOT VTI: 0.27 LVOT Pk Grad: 6.00 LVOT Mn Grad: 3.00 LVOT Diam: 2.00 LVOT Area: 3.14 Diastolic Function MV Pk E: 0.99 MV Pk A: 0.81 E/A: 1.20 E'Medial: 6.85 E/E' Med: 14.40 E' Laterial: 9.36 E/E' Lat: 10.50 Right Ventricle TAPSE (mm): 27.40 TVS' Ever: 16.90 Tricuspid Valve TR Pk Ever: 2.37 TR Pk Grad: 22.00 RA Press: 3.00 RVSP: 25.00 Great Vessels Aorta Sinus of Valsalva: 3.70 2.0-3.5 cm Ao Asc: 4.50 2.1-3.4 cm Ao Arch: 2.80 Pulmonary Valve PV Pk Ever: 0.96 Peak PV Grad: 4.00 Updated in Other Vendor System with Status of Final Marcos Villanueva MD electronically signed on 05/15/2023 12:10:07 PM with status of Final
--- NOTE | 2023-05-14 12:57 | ECG_ITS ---
Test Reason : PRECHEMO CHECK Blood Pressure : / mmHG Vent. Rate : 069 BPM Atrial Rate : 069 BPM P-R Int : 170 ms QRS Dur : 098 ms QT Int : 414 ms P-R-T Axes : 037 021 051 degrees QTc Int : 443 ms Normal sinus rhythm Normal ECG No previous ECGs available Referred By: John Cordero Electronically Signed By:RYAN FITZPATRICK
== END ==
LOC: HO.CARD 12:57
PROVIDERS: PCP Internal Medicine; Visit Provider Internal Medicine Medical Oncology
DX: C34.90 Malignant neoplasm of unspecified part of unspecified bronchus or lung (principal)
CPT/HCPCS: 93005; 93306; 93356

== ENCOUNTER → 2023-05-14 12:57 | Outpatient (BNV) | payer OTHER, SELFPAY | PROVIDERS: PCP Internal Medicine; Visit Provider Internal Medicine | DX: I35.1 Nonrheumatic aortic (valve) insufficiency (principal); I34.0 Nonrheumatic mitral (valve) insufficiency | CPT/HCPCS: 93010; 93306 ==

== ENCOUNTER 2023-06-05 11:06 | Outpatient (REF) | payer OTHER, SELFPAY ==
--- NOTE | ~2023-06-05 | PE_ITS ---
EXAMINATION: Fluorine-18 FDG PET/CT Scan CLINICAL INDICATION: Subsequent treatment management. Non-small cell lung carcinoma. On treatment. For restaging. PROCEDURE: 64 minutes following the intravenous administration of 20.7 mCi of fluorine 18 FDG, images from the base of the skull to the mid thighs were obtained using a combined PET/CT scanner with CT scan based attenuation correction. No intravenous contrast was administered. Transverse, coronal, sagittal, and volume reconstruction projections were obtained. The patient's blood glucose as determined by a finger stick, was 85 mg/dl immediately prior to injection. The radiotracer was injected intravenously through the right antecubital superficial vein, without any complications. Total CT exam dose-length product 1060.79 mGy-cm * These CT images were obtained using dose optimization techniques as appropriate, variously including the following: Automated exposure control * Adjustment of mA and/or kV according to patient size (this includes techniques or standardized protocols for targeted exams where dose is matched to indication/reason for exam; i.e. extremities or head) * Use of iterative reconstruction technique COMPARISON: Baseline PET/CT scan done on 02/13/[address] of the chest done on 02/06/2023. Whole-body bone scan done on 02/27/2023. FINDINGS: SUV max REFERENCE: Blood: 3.3 (current). 3.1 (baseline-02/13/2023). Liver: 4.4 (current). 3.9 (baseline-02/13/2023). HEAD AND NECK: Persistent stable asymmetric mild tracer avidity is noted at left upper posterolateral neck with SUV max of 4.8 (24/267), previously 6.4, associated with approximately 1 cm soft tissue nodule, likely represent left-sided level 5 cervical lymph node, unchanged. Increased tracer avidity involving bilateral palatine tonsil appears stable likely represent physiologic changes. Subtle focal tracer avidity at the inferior pole of the right lobe of the thyroid gland is also unchanged. No large intracranial hemorrhage, acute territorial infarct or significant shift of midline structures. CHEST: Ports and Devices: None Lungs: Previously documented intense hypermetabolic right upper lobar posterior medial soft tissue mass measuring approximately 4.6 x 3.9 cm associated with intense tracer avidity with SUV max of 18.2 (62/267) shows marked interval decrease in size and tracer avidity, currently measures approximately 2.4 x 1.5 cm with SUV max of 5.1 (62/267), consistent with excellent interval therapeutic response. Persistent stable multilobar bilateral noncalcified scattered smaller lung parenchymal nodules appear stable. Focal linear Nathaly-fissural thickening involving the mid part of the right major fissure without any tracer avidity also appear unchanged. Pleura: No significant pleural effusion. Lymph Nodes: No tracer-avid mediastinal, hilar or internal mammary lymphadenopathy. Multiple shotty bilateral non tracer avid axillary lymph nodes are noted, unchanged. Mediastinum: There is no significant pericardial effusion/thickening. Breasts/Chest Wall: No abnormal radiotracer uptake. ABDOMEN/PELVIS: Liver/Biliary System: No focal tracer-avid liver lesion. The gallbladder appears unremarkable. Pancreas: Normal.No evidence of pancreatic ductal dilatation. Spleen: No abnormal radiotracer uptake. No evidence of splenomegaly. Adrenal Glands: No abnormal radiotracer uptake. Kidneys: No hydronephrosis, or hydroureter. There is a 5 mm nonobstructing radiopaque calculus seen at the inferior anterior calyx of the left kidney, unchanged (184/349). Bowel: There is no significant bowel dilatation to suggest obstruction. Lymph Nodes: No tracer avid retroperitoneal, mesenteric or pelvic and/or groin lymphadenopathy. Pelvic Organs: The urinary bladder is underdistended. MUSCULOSKELETAL: At the site of presumed metabolically active metastatic disease at T6 vertebral body to the left of the midline there is interval development of sclerosis present with normalization of hypermetabolism from previous SUV max of 8.9 to currently 4.6 (84/267), consistent with complete metabolic response and interval healing. Focal area of sclerosis is also noted along the posterior superior aspect of the left iliac bone which is new since prior study (221/349) may represent interval healing at the site of the indolent site of disease. No new sites of tracer avid suspicious disease within the entire visualized axial and appendicular skeleton. VASCULAR: No significant calcific atherosclerotic disease, unchanged. THE SITE OF MOST INTENSE FDG AVIDITY AND SUV MAX: The site of primary lung malignancy at right upper lobe posterolateral superomedially shows SUV max of 5.1, previously 18.2. PET/PET CT fusion skull to thigh IMPRESSION: 1. Marked interval decrease in size and tracer intensity at the site of previously documented right upper lobar lung malignancy, consistent with excellent interval therapeutic response. 2. At T6 vertebral body there is interval development of sclerosis corresponding to the site of presumed metastasis and interval normalization of hypermetabolism, also consistent with excellent interval therapeutic response. Another focal area of subcentimeter sclerosis is present at the posterior superior part of the left iliac bone, was not visualized on the prior study, likely represent interval therapeutic response at the site of indolent disease. 3. No other significant interval change. Specifically, no evidence of any suspicious new sites of disease to suspect disease progression.
== END 2023-06-05 11:07 | disposition home or self-care (01) ==
LOC: HO.PET 11:06
PROVIDERS: PCP Internal Medicine; Visit Provider Internal Medicine Medical Oncology
DX: Z13.89 Encounter for screening for other disorder (principal)

== ENCOUNTER 2023-06-13 14:12 | Outpatient (AMB) | payer OTHER, SELFPAY ==
[2023-06-13 14:18] VITALS: BP 110/70; PULSE 82; BMI 36.3
--- NOTE | 2023-06-13 14:18 | MHC.OFFVIS ---
Intake Vital Signs 06/13/23 14:18 Height 5 ft 2 in Weight 198 lb 6.656 oz BMI 36.3 BP 110/70 Blood Pressure Location Lt brachial Position Sitting Pulse 82 Intake Visit Reasons: new patient Intake Note: New patient AAA on echo Rodbuster Required: No Allergies cat dander [CATS] Allergy (Mild, Unverified 06/04/23 14:01) RUNNY NOSE dog dander [DOG] Allergy (Mild, Unverified 06/04/23 14:01) ITCHY EYES ENVIRONMENTAL Allergy (Mild, Uncoded 06/04/23 14:01) RUNNY NOSE SEASONAL ALLERGIES Allergy (Mild, Uncoded 06/04/23 14:01) RUNNY NOSE Medication List - Last Reconciled 06/13/23 by Toney Hernandez MD [id number] 250-250-65 mg (Excedrin Extra Strength) 1 tab PO Q4-6H PRN atorvastatin 10 mg PO DAILY cetirizine 10 mg PO DAILY cholecalciferol (vitamin D3) 50 mcg PO DAILY coenzyme Q10 300 mg PO DAILY denosumab (Xgeva) 120 mg subcut Q4W ibuprofen (Motrin IB) 200 mg PO Q6H PRN ketoconazole 2% 1 appl topical DAILY levalbuterol tartrate 45 mcg/actuation 2 puffs inhalation Q4H PRN lisinopril 10 mg PO DAILY lisinopril 10 mg PO DAILY magnesium 200 mg PO DAILY mometasone 0.1% 1 appl topical DAILY nystatin 1 appl topical BID ondansetron 8 mg PO Q8H osimertinib 80 mg PO Q24H HPI HPI Comments History of Present Illness Details Thank you for referring Razia in cardiology consultation for noted ascending aortic aneurysm on the recent echocardiogram measured at 4.5 cm. This echocardiographic study was done to evaluate for cardiac toxicity of her oral biological agent for her metastatic lung cancer. LV ejection fraction is normal and there is mild mitral regurgitation. The ascending aortic aneurysm also was noted on the chest CT. Patient has no cardiac symptoms. She does have exertional shortness of breath which she thinks is related to her weight as well as to the lung cancer diagnosis. Patient denies any palpitations, lightheadedness, syncope. She was diagnosed with significantly elevated blood pressure in January of started on lisinopril therapy and since then her blood pressures been well controlled. She currently is taking osimertinib and there is been radiologic evidence of reduction in tumor burden. Patient denies any clear family history of ascending aortic aneurysm although her grandfather and 1 of her paternal uncles suddenly in their 50s. [facility] Medical History High blood pressure Lung cancer AAA (abdominal aortic aneurysm) BORGES (dyspnea on exertion) History of COVID-19 Osteopenia (~2016) Hyperlipidemia Hemoptysis Lung mass Surgical History History of bronchoscopy History of cervical biopsy History of endoscopy History of colonoscopy History of extraction of renal calculus Family History Father Colon cancer Mother Breast cancer Thyroid disease Social History Household Members: Spouse Are you a primary healthcare account manager to a significant other at home: No Alcohol intake: never Patient Tobacco Use Status: Never used Tobacco service: No Current occupational status: employed Review [employer] Systems Const Denies chills, Denies daytime sleepiness, Denies fatigue, Denies fever(s), Denies frequent falls, Denies poor appetite, Denies snoring, Denies stops breathing during sleep, Denies weakness, Denies weight gain and Denies weight loss Eyes Denies loss of vision ENT Denies dizziness and Denies hearing loss Card Denies chest pain, Denies claudication, Denies leg edema, Denies lightheadedness, Denies palpitations, Denies dyspnea, Denies dyspnea on exertion and Denies orthopnea Resp Denies cough, Denies excessive phlegm production, Denies dyspnea, Denies dyspnea on exertion, Denies snoring and Denies wheezing GI Denies abdominal pain, Denies hematochezia, Denies change in bowel habits, Denies nausea and Denies vomiting Denies urinary frequency and Denies dysuria Musc Denies arthralgias, Denies muscle weakness, Denies numbness and Denies other (frequent falls) Skin/Breast Denies nail changes and Denies rash Neuro Denies Abnormal speech present, Denies dizziness, Denies frequent falls, Denies loss of vision, Denies memory loss, Denies numbness and Denies weakness Psych Denies depression and Denies memory loss Endo Denies fatigue and Denies palpitations Sabino/Lymph Reports easy bruising and Reports other (anemia) Aller/Immun Denies wheezing Physical Exam Vital Signs: Last Vital Signs Pulse 82 06/13/23 14:18 BP 110/70 06/13/23 14:18 BMI result Body Mass Index 36.3 Const General: cooperative, comfortable, no acute distress, well developed, alert, awake, Physically active and well groomed Nutritional Appearance: well nourished and obese Orientation/consciousness: patient oriented x3 Limitations: no limitations HEENT Head: Yes normocephalic and Yes atraumatic Neck Neck: Yes trachea midline, Yes supple and Yes no JVD Resp Effort & Inspection: normal respiratory effort Auscultation: clear to auscultation bilaterally Cardio Jugular venous distension: no JVD Palpation: normal PMI Rate: regular rate Rhythm: regular rhythm Heart sounds: S1 normal heart sound present, S2 normal heart sound present, no click, no gallops, no murmurs and no rubs Peripheral pulses: Peripheral pulses 2+ throughout GI Auscultation: normal bowel sounds Skin General skin exam: no rashes or lesions noted Neuro General: patient oriented x3 and no focal motor deficits Speech: No Abnormal speech present Extrem General: Yes no clubbing, cyanosis or edema Assessment & Plan Assessment & Plan (1) Ascending aortic aneurysm: Code(s): I71.21 - Aneurysm of the ascending aorta, without rupture Plan: Ascending aortic aneurysm without any clear other risk factors except for hypertension which was recently diagnosed and treated. Family history is unclear and there is suggestion of sudden cardiac that in her paternal grandfather as well as paternal uncle. Will send her for genetic studies as management would be slightly different if she has any genetic predisposition to ascending aortic aneurysm. Otherwise will repeat limited echocardiogram in 6 months time to assess any sudden change in her ascending aortic size that may require sooner intervention. This was discussed with her. At this point time management would be medical with aggressive control of blood pressure which is well optimized at current time. Advised to avoid sudden strenuous isometric exercise. Will follow up in the clinic in 6 months time after an echocardiogram. Thank you for allowing me to partake in her care Coding Level of Care Code New Pt Level 4 (94208) Diagnoses Ascending aortic aneurysm I71.21
== END 2023-06-13 15:04 | disposition home or self-care (01) ==
PROVIDERS: PCP Internal Medicine; Visit Provider Internal Medicine Cardiovascular Disease
DX: I71.21 Aneurysm of the ascending aorta, without rupture (principal)
CPT/HCPCS: 99204

== ENCOUNTER → 2023-06-13 14:12 | Outpatient (BNVA) | payer OTHER, SELFPAY | PROVIDERS: PCP Internal Medicine; Visit Provider Internal Medicine Cardiovascular Disease ==

== ENCOUNTER → 2023-07-11 09:45 | Outpatient (BNV) | payer OTHER, SELFPAY | PROVIDERS: PCP Internal Medicine; Visit Provider Radiology Diagnostic Radiology | DX: Z12.31 Encounter for screening mammogram for malignant neoplasm of breast (principal) | CPT/HCPCS: 77063; 77067 ==

== ENCOUNTER 2023-07-11 09:50 | Outpatient (REF) | payer OTHER, SELFPAY ==
--- NOTE | ~2023-07-11 | MM_ITS ---
EXAMINATION: MM SCREENING DIGITAL BREAST TOMOSYNTHESIS, BILATERAL CLINICAL INFORMATION: Screening. Asymptomatic. History of non-small cell lung cancer with T6 vertebral body metastasis. Strong family history of breast cancer, mother diagnosed age 45, sister diagnosed at age 38. COMPARISON: Mammography: 07/08/2022, 06/14/2021, 03/29/2020, 03/06/2019, 02/09/2018. TECHNIQUE: Digital breast tomosynthesis is performed in both the craniocaudal and mediolateral oblique views along with computer-aided detection (CAD). Synthesized 2D images are generated from the tomosynthesis. FINDINGS: There are scattered areas of fibroglandular density (ACR BI-RADS breast composition Category b). There are 2 post benign biopsy clip marker is in the left breast upper outer quadrant without change. There are dystrophic calcifications in both breasts. There are no suspicious masses, suspicious grouped calcifications, or areas of architectural distortion in either breast. The parenchymal pattern is stable from prior exams. No skin or axillary abnormalities noted. MM/MM tomosynthesis screening BI IMPRESSION: No mammographic evidence of malignancy. Stable benign findings. ASSESSMENT: BI-RADS BI-RADS 2 - Benign Findings RECOMMENDATION: Routine annual mammography screening. 1 year F/U This examination should not preclude the clinical evaluation of a suspicious palpable abnormality. This patient's information was entered into a reminder system with a target due date for their next mammogram.
== END 2023-07-11 09:51 | disposition home or self-care (01) ==
LOC: HO.MAMMO 09:50
PROVIDERS: PCP Internal Medicine; Visit Provider Internal Medicine
DX: Z12.31 Encounter for screening mammogram for malignant neoplasm of breast (principal)
CPT/HCPCS: 77063; 77067

== ENCOUNTER 2023-10-09 09:24 | Outpatient (REF) | payer OTHER, SELFPAY ==
--- NOTE | ~2023-10-09 | CT_ITS ---
EXAMINATION: CT ABDOMEN AND PELVIS WITH CONTRAST CLINICAL INFORMATION: Lung cancer with metastasis to iliac bone COMPARISON: PET/CT from 06/05/2023 TECHNIQUE: Multidetector volumetric images were obtained from the superior aspect of the liver through the pubic symphysis following administration 85 mL of Omnipaque 350 intravenous contrast. Sagittal and coronal reformatted images were obtained on the technologist's workstation. Oral contrast: Ordered This CT examination was performed using dose optimization techniques as appropriate, variously including the following: *Automated exposure control *Adjustment of mA and/or kV according to patient size (this includes techniques or standardized protocols for targeted exams where dose is matched to indication/reason for exam; i.e. extremities or head) *Use of iterative reconstruction technique DLP: 748 mGy-cm FINDINGS: LUNG BASES: The visualized lung bases are unremarkable. LIVER, GALLBLADDER, AND BILIARY TREE: The liver is normal in size, shape, and attenuation. No focal hepatic lesion or biliary ductal dilatation is present. The gallbladder is unremarkable with no evidence of radiopaque gallstones, gallbladder wall thickening, or obvious pericholecystic inflammatory changes. PANCREAS: Unremarkable. SPLEEN: Unremarkable. ADRENAL GLANDS: Unremarkable. KIDNEYS AND URETERS: There is nonobstructing calculus in the lower pole of left kidney, measured 0.5 cm, with attenuation of 680 HU BLADDER: Unremarkable. GASTROINTESTINAL TRACT: The small and large bowel are unremarkable. The appendix is not identified ABDOMINAL WALL: No significant hernia is appreciated. LYMPH NODES: Normal. VASCULAR: Unremarkable. PELVIC VISCERA: Unremarkable. OSSEOUS STRUCTURES: There is small, blastic lesion in left iliac wing, without osseous destruction, concordant with information provided by PET/CT result CT/CT abdomen pelvis w IV con IMPRESSION: 1. Nonobstructing calculus in the lower pole of left kidney. 2. Small, blastic lesion in left iliac wing, concordant with information provided by PET/CT result. Fleischner guidelines were followed.
--- NOTE | ~2023-10-09 | CT_ITS ---
EXAMINATION: CT CHEST WITH CONTRAST CLINICAL INFORMATION: Restaging non-small cell lung cancer. COMPARISON: Chest CT dated February 06, 2023. CT scan of the abdomen dated October 09, 2023. PET/CT dated June 05, 2023. TECHNIQUE: Multidetector volumetric CT imaging of the chest was obtained after the administration of 85 mL of Omnipaque 350 intravenous contrast without immediate adverse reactions. Axial MIP volume rendering provided. Sagittal and coronal reformatted images were obtained. This CT examination was performed using dose optimization techniques as appropriate, variously including the following: *Automated exposure control *Adjustment of mA and/or kV according to patient size (this includes techniques or standardized protocols for targeted exams where dose is matched to indication/reason for exam; i.e. extremities or head) *Use of iterative reconstruction technique DLP: 1103 mGy-cm FINDINGS: LUNGS/MEDIASTINUM: Grossly similar appearance of previously described right upper lobar posterior medial soft tissue mass measuring approximately 4.6 x 3.9 cm compared with most recent prior study from June 05, 2023. Irregular shapes/spiculation of this lesion complicate by size measurement/comparison. Tendrils from this lesion extend to the nearby pleura, and there is loss of fat planes between this mass, mediastinal fat, the azygos vein, and possibly the trachea. No change in multiple, scattered, right more than left, subpleural 0.5 cm or less nodular densities, possibly representing intrapulmonary lymph nodes. A retrosternal structure possibly representing a lymph node measures approximately 1.2 cm in short axis (image 18, series 5), not significantly changed compared with June 05, 2023. Heart normal in size. No pericardial effusion. Coronary arterial calcification: None identified. PLEURA: There is no pleural effusion. No pleural mass or thickening. AXILLA: No evidence of lymphadenopathy by size criteria. UPPER ABDOMEN: Unremarkable OSSEOUS STRUCTURES: T6 sclerotic lesion, similar compared with June 05, 2023. No new lytic or sclerotic bony lesion identified. CT/CT chest w IV con IMPRESSION: No significant radiographic change compared with June 05, 2023.
[2023-10-09] MEDS: iohexoL 350 MG/ML 100 ML INFUS..BTL IV (12:30)
[2023-10-09] MEDS: Barium Sulfate Oral (Mocha) 450 ML ORAL.SUSP 900 ML PO (12:31)
== END 2023-10-09 09:25 | disposition home or self-care (01) ==
LOC: HO.CT 09:24
PROVIDERS: PCP Internal Medicine; Visit Provider Internal Medicine Medical Oncology
DX: C34.90 Malignant neoplasm of unspecified part of unspecified bronchus or lung (principal)
CPT/HCPCS: 71260; 74177; Q9967

== ENCOUNTER 2023-11-05 08:51 | Outpatient (REF) | payer OTHER, SELFPAY ==
[2023-11-05 09:17] LABS: MANUAL DIFF FLAG NO
[2023-11-05 09:32] LABS: Basophils Percent Auto 0.5 % (0-2); Eosinophils Absolute Auto 0.2 X10*3/uL (0.0-0.4); Eosinophils Percent Auto 3.8 % (0-4); Hematocrit 36.4 % (37.0-47.0); Hemoglobin 12.2 g/dl (12.0-16.0); Imm Gran Abs Auto 0.01 X10*3/uL (0.00-0.03); Imm Gran Pct Auto 0.3 % (0.0-0.4); Lymphocytes Absolute Auto 1.5 X10*3/uL (1.2-4.9); Lymphocytes Percent Auto 38.5 % (20-40); Mean Corpuscular HGB Conc 33.5 g/dl (31.0-35.0); Mean Corpuscular Hemoglobin 31.5 pg (27.0-33.0); Mean Corpuscular Volume 94.1 fL (80.0-98.0); Mean Platelet Volume 9.6 fL (9.4-12.3); Monocytes Absolute Auto 0.4 X10*3/uL (0.1-1.2); Monocytes Percent Auto 9.7 % (2-11); Neutrophils Absolute Auto 1.9 x10*3/uL (2.0-8.3); Neutrophils Percent Auto 47.2 % (45-73); Platelet Count 207 X10*3/uL (160-400); Red Blood Count 3.87 X10*6/uL (4.20-5.50); Red Cell Distribution Width 14.6 % (11.0-16.0); White Blood Count 3.9 X10*3/uL (4.8-10.8)
[2023-11-05 09:34] LABS: Estimated Average Glucose 103 mg/dL; Hemoglobin A1c % 5.2 % (<6.0)
[2023-11-05 09:38] LABS: Alanine Aminotransferase 28 U/L (0-31); Albumin Level 4.4 g/dL (3.5-5.0); Alkaline Phosphatase 58 U/L (39-117); Anion Gap 12 (12-20); Aspartate Amino Transferase 29 U/L (5-31); Bilirubin Total 0.7 mg/dL (0.0-1.0); Blood Urea Nitrogen 17 mg/dL (9-16); Carbon Dioxide 25 mmol/L (22-29); Chloride 108 mmol/L (96-108); Estimated Glomerular Filt Rate 60; Glucose Random 91 mg/dL (60-115); Sodium 141 mmol/L (135-145); Total Protein 7.1 g/dL (6.5-8.0)
[2023-11-05 09:46] LABS: Alanine Aminotransferase 27 U/L (0-31); Albumin Level 4.4 g/dL (3.5-5.0); Alkaline Phosphatase 58 U/L (39-117); Anion Gap 12 (12-20); Aspartate Amino Transferase 29 U/L (5-31); Bilirubin Total 0.7 mg/dL (0.0-1.0); Blood Urea Nitrogen 17 mg/dL (9-16); Calcium 9.9 mg/dL (8.4-10.2); Carbon Dioxide 25 mmol/L (22-29); Chloride 107 mmol/L (96-108); Cholesterol 150 mg/dL (<200); Estimated Glomerular Filt Rate 60; Glucose Random 92 mg/dL (60-115); HDL Cholesterol 65 mg/dL (>40); LDL Cholesterol Calculated 75 mg/dL (<100); Sodium 140 mmol/L (135-145); Triglycerides 52 mg/dL (<150)
[2023-11-05 09:56] LABS: TSH reflex Free T4 3.38 uIU/mL (0.32-4.0); Vitamin D 25-OH Total 68.5 ng/mL (>30)
== END 2023-11-05 08:52 | disposition home or self-care (01) ==
LOC: HO.LAB 08:51
PROVIDERS: Absent Provider Internal Medicine; PCP Internal Medicine; Visit Provider Internal Medicine Medical Oncology
DX: C34.90 Malignant neoplasm of unspecified part of unspecified bronchus or lung (principal); E55.9 Vitamin D deficiency, unspecified; E03.9 Hypothyroidism, unspecified; E78.00 Pure hypercholesterolemia, unspecified; R73.01 Impaired fasting glucose
CPT/HCPCS: 36415; 80053; 80061; 82306; 83036; 84443; 85025

== ENCOUNTER → 2023-11-20 14:34 | Outpatient (REF) | payer OTHER, SELFPAY ==
--- NOTE | 2023-11-20 14:39 | CA_ITS ---
Transthoracic Echocardiogram Patient (Last, First, Middle): Edna Bobby, Gender: Female Date of : 1960 Age: 62 Procedure Date: 11/20/2023 Procedure Type: Transthoracic Echocardiogram Location: OP Height: 157.48 cm Weight: 88. kg BSA: 1.89 m2 Heart Rate: bpm BP: 122 / 60 mmHg Talent Scout: Referring MD: Toney Hernandez MD Symptoms: I71.21 - Aneurysm of the ascending aorta, without rupture Study Quality: Good ECG Rhythm: Sinus Conclusions: - The left ventricular systolic function is normal. The visually estimated ejection fraction is between 60-65%. - No obvious valvular pathology seen on this study. - There is moderate dilatation of the ascending aorta measuring 4.70 cm. Findings Left Ventricle Normal left ventricular cavity size. There is normal left ventricular wall thickness. The left ventricular systolic function is normal. The visually estimated ejection fraction is between 60-65%. There is no evidence of regional wall motion abnormalities. LV peak GLS -17.9%. Right Ventricle Normal right ventricular cavity size and systolic function. Atria Both atria are normal in size. Aortic Valve There is a normal trileaflet aortic valve. There is no aortic valve stenosis. There is mild aortic valve regurgitation. Mitral Valve The mitral valve appears normal. There is trace mitral valve regurgitation. There is no mitral valve stenosis. Pulmonic Valve The pulmonic valve is likely normal. Tricuspid Valve Normal tricuspid valve structure. There is trace tricuspid valve regurgitation. There is no evidence of pulmonary hypertension. Great Vessels The aortic annulus and sinuses of valsalva are normal in size. There is moderate dilatation of the ascending aorta measuring 4.70 cm. Venous The inferior vena cava is normal in size and collapses greater than 50% with inspiration. Pericardium/Pleural There is no evidence of pericardial effusion. Prior Study Comparison Changes noted compared to prior study dated: 05/14/2023. Increase in ascending aortic size. Consider CTA for further evaluation. Recommendations, Care & Conclusions No obvious valvular pathology seen on this study. Measurements 2D Linear Measurements IVSd: 1.02 0.6-0.9/0.6-1.0 cm LVIDd: 5.57 3.9-5.3/4.2-5.9 cm LVIDd Index: 2.95 2.4-3.2/2.2-3.1 cm/m2 LVIDs: 3.28 2.0-3.6 cm LVPWd: 0.90 0.7-1.1 cm Ao Root: 3.40 2.1-3.5 cm LA Diam: 3.60 2.7-3.8/3.0-4.0 cm LAIDs Index: 1.90 1.5-2.3 cm/m2 LV Mass: 256.75 67-162/88-224 g LV Mass Index: 135.85 43-95/49-115 g/m2 LVOT Diam: 2.10 3.0+(-)1.3 cm 2D Systolic Function EF 4C: 56.40 >55% EF 2C: 75.90 >55% EF BiP: 67.70 >55% Mitral Valve MV Pk E: 1.01 MV PK A: 0.83 MV Decel Time: 219.00 E/A: 1.20 E'Lateral: 10.70 E'Medial: 4.90 E/E' Med: 20.60 E/E' Lat: 9.40 PHT: 64.00 MVA PHT: 3.44 Decel [place]: 4.59 Aortic Valve AoV Pk Ever: 1.52 AoV Mn Ever: 1.05 AoV VTI: 0.40 AoV Pk Grad: 9.00 Aov Mn Grad: 5.00 JORGE Cont.VTI: 2.56 LVOT LVOT Pk Ever: 1.19 LVOT Mn Ever: 0.72 LVOT VTI: 0.30 LVOT Pk Grad: 6.00 LVOT Mn Grad: 3.00 LVOT Diam: 2.10 LVOT Area: 3.46 Diastolic Function MV Pk E: 1.01 MV Pk A: 0.83 E/A: 1.20 E'Medial: 4.90 E/E' Med: 20.60 E' Laterial: 10.70 E/E' Lat: 9.40 Right Ventricle TAPSE (mm): 24.00 TVS' Ever: 14.00 Tricuspid Valve TR Pk Ever: 2.29 TR Pk Grad: 21.00 RA Press: 3.00 Great Vessels Aorta Ao Root-2D: 3.40 2.0-3.7 cm Ao Asc: 4.70 2.1-3.4 cm Pulmonary Valve PV Pk Ever: 0.88 Peak PV Grad: 3.00 Updated in Other Vendor System with Status of Final Marcos Villanueva MD electronically signed on 11/21/2023 11:50:04 AM with status of Final
== END ==
LOC: HO.CARD 14:34
PROVIDERS: PCP Internal Medicine; Visit Provider Internal Medicine Cardiovascular Disease
DX: I71.21 Aneurysm of the ascending aorta, without rupture (principal)
CPT/HCPCS: 93306

== ENCOUNTER → 2023-11-20 14:39 | Outpatient (BNV) | payer OTHER, SELFPAY | PROVIDERS: PCP Internal Medicine; Visit Provider Internal Medicine | DX: I71.21 Aneurysm of the ascending aorta, without rupture (principal); I35.1 Nonrheumatic aortic (valve) insufficiency | CPT/HCPCS: 93306; 93356 ==

== ENCOUNTER 2023-12-11 09:22 | Outpatient (AMB) | payer OTHER, SELFPAY ==
--- NOTE | 2023-12-11 09:25 | MHC.OFFVIS ---
Vital Signs 12/11/23 09:26 Height 5 ft 2 in Weight 189 lb 9.561 oz BMI 34.7 BP 122/72 Blood Pressure Location Lt brachial Position Sitting Pulse 72 Intake Visit Reasons: 6 mth f/up [facility] echo Intake Note: 6 month follow-up after echo starting radiation soon [employer] Required: No Allergies cat dander [CATS] Allergy (Mild, Verified 12/03/23 09:15) RUNNY NOSE dog dander [DOG] Allergy (Mild, Verified 12/03/23 09:15) ITCHY EYES ENVIRONMENTAL Allergy (Mild, Uncoded 12/03/23 09:15) RUNNY NOSE SEASONAL ALLERGIES Allergy (Mild, Uncoded 12/03/23 09:15) RUNNY NOSE Medication List - Last Reconciled 12/11/23 by Toney Hernandez MD [id number] 250-250-65 mg (Excedrin Extra Strength) 1 tab PO Q4-6H PRN atorvastatin 10 mg PO DAILY cetirizine 10 mg PO DAILY cholecalciferol (vitamin D3) 50 mcg PO DAILY coenzyme Q10 300 mg PO DAILY denosumab (Xgeva) 120 mg subcut Q4W ibuprofen (Motrin IB) 200 mg PO Q6H PRN ketoconazole 2% 1 appl topical DAILY levalbuterol tartrate 45 mcg/actuation 2 puffs inhalation Q4H PRN lisinopril 10 mg PO DAILY magnesium 200 mg PO DAILY mometasone 0.1% 1 appl topical DAILY nystatin 1 appl topical BID ondansetron 8 mg PO Q8H osimertinib 80 mg PO Q24H HPI Comments Details: Brenad comes for follow-up. She is currently undergoing treatment for stage IV lung cancer at [facility]. She had repeat limited echocardiogram showed ascending aortic measured at 4.7 cm as. Minimally enlarged compared to before. She has no cardiac symptoms. Takes all her medications regularly. She says sister was recently diagnose with ascending aortic aneurysm. Her genetic testing has been negative. [facility] Medical History High blood pressure Lung cancer AAA (abdominal aortic aneurysm) BORGES (dyspnea on exertion) History of COVID-19 Osteopenia (~2016) Hyperlipidemia Hemoptysis Lung mass Surgical History History of bronchoscopy History of cervical biopsy History of endoscopy History of colonoscopy History of extraction of renal calculus Family History Father Colon cancer Mother Breast cancer Thyroid disease Social History Household Members: Spouse Are you a primary rn progressive care to a significant other at home: No Alcohol intake: never Patient Tobacco Use Status: Never used Tobacco service: No Current occupational status: employed Review of Systems Const Denies chills, Denies fatigue, Denies fever(s), Denies frequent falls, Denies weakness, Denies weight gain and Denies weight loss ENT Denies dizziness Card Denies chest pain, Denies leg edema, Denies lightheadedness, Denies palpitations, Denies dyspnea, Denies dyspnea on exertion, Denies orthopnea and Denies other (loss of consciousness) Resp Denies cough, Denies dyspnea and Denies dyspnea on exertion GI Denies hematochezia and Denies change in stool character Musc Denies abnormal gait, Denies muscle weakness, Denies numbness, Denies radiating pain into limb and Denies tingling Neuro Denies Abnormal speech present, Denies abnormal gait, Denies dizziness, Denies frequent falls, Denies numbness, Denies tingling and Denies weakness Endo Denies fatigue and Denies palpitations Physical Exam Vital Signs: Last Vital Signs Pulse 72 12/11/23 09:26 BP 122/72 12/11/23 09:26 BMI result Body Mass Index 34.7 Const General: cooperative, comfortable, no acute distress, well developed, alert, awake, Physically active and well groomed Nutritional Appearance: well nourished and obese Orientation/consciousness: patient oriented x3 Limitations: no limitations HEENT Head: Yes normocephalic and Yes atraumatic Neck Neck: Yes trachea midline, Yes supple and Yes no JVD Resp Effort & Inspection: normal respiratory effort Auscultation: clear to auscultation bilaterally Cardio Jugular venous distension: no JVD Palpation: normal PMI Rate: regular rate Rhythm: regular rhythm Heart sounds: S1 normal heart sound present, S2 normal heart sound present, no click, no gallops, no murmurs and no rubs Peripheral pulses: Peripheral pulses 2+ throughout GI Auscultation: normal bowel sounds Skin General skin exam: no rashes or lesions noted Neuro General: patient oriented x3 and no focal motor deficits Speech: No Abnormal speech present Extrem General: Yes no clubbing, cyanosis or edema Assessment & Plan Assessment & Plan (1) Ascending aortic aneurysm: Code(s): I71.21 - Aneurysm of the ascending aorta, without rupture Category: Medical Plan: Ascending aortic aneurysm with moderate enlargement. No symptoms related to it. Advise management with annual follow-up. Repair size will be 5.5 cm as genetic testing so far has been negative. Her her sister was recently diagnose ascending aortic aneurysm therefore I recommend her to have her kids be screened at least phenotypically by echocardiogram to assess for ascending aortic size. This was discussed with her. She understands agrees. Continue to avoid sudden strenuous isometric exercise. Continue aggressive blood pressure control. Follow up in the clinic after 1 year after an echocardiogram. Orders: Orders CA echo transthoracic complete 11 Months I71.21 - Aneurysm of the ascending aorta, without rupture Coding Level of Care Code Est Pt Level 3 (99637) Diagnoses Ascending aortic aneurysm I71.21
[2023-12-11 09:26] VITALS: BP 122/72; PULSE 72; BMI 34.7
== END 2023-12-11 10:02 | disposition home or self-care (01) ==
PROVIDERS: PCP Internal Medicine; Visit Provider Internal Medicine Cardiovascular Disease
DX: I71.21 Aneurysm of the ascending aorta, without rupture (principal)
CPT/HCPCS: 99213

== ENCOUNTER → 2023-12-11 09:22 | Outpatient (BNVA) | payer OTHER, SELFPAY | PROVIDERS: PCP Internal Medicine; Visit Provider Internal Medicine Cardiovascular Disease ==

== ENCOUNTER 2024-05-29 10:42 | Outpatient (REF) | payer OTHER, SELFPAY ==
--- NOTE | ~2024-05-29 | XR_ITS ---
EXAMINATION: XR CHEST CLINICAL INFORMATION: Cough and congestion; history of non-small cell lung carcinoma. COMPARISON: Radiograph 01/29/2023. CT chest 10/09/2023. TECHNIQUE: 2 views of the chest were obtained. FINDINGS: The cardiac, hilar, and mediastinal contours are normal. There is a similar right paramediastinal mass superiorly with associated linear parenchymal scarring, similar to the CT examinations Catcher Plug radiographs of 10/09/2023. There has been significant improvement in these findings when compared with 01/29/2023 radiographs. In the right lower lobe, there is an ovoid nodular opacity, significantly larger than on the most recent CT examination. The left lung appears clear. There is no focal pneumonia or effusion. There is no pneumothorax. There is a similar sclerotic focus in the T6 vertebral body consistent with metastatic focus. No additional focal osseous abnormalities. XR/XR chest 2V IMPRESSION: 1. No focal pneumonia or effusion. 2. Similar appearing masslike opacity with scarring in the right medial apex, in keeping with known neoplasm. 3. Enlarging right lower lobe nodular opacity suspicious for enlarging nodule previously seen abutting the posterior pleura on chest CT of 10/09/2023. 4. Similar sclerotic metastasis in T6. Electronically signed by: Tab Mckeon MD 05/29/2024 11:30 AM PRATIBHA
[2024-05-29 13:37] LABS: Influenza A PCR NEGATIVE (Negative); Influenza B PCR NEGATIVE (Negative); Resp Syncy Virus RNA Qual PCR NEGATIVE (Negative); SARS COV2 PCR INHOUSE NEGATIVE (Negative)
--- OUTSIDE RECORDS SUMMARY | 2024-05-29 14:28 | XMS_ITS | Encounter Summary ---
Author Organization [facility] Address [address] [place] [address] Care Team Providers Care Tool Polishing Machine Operator Name Role Phone Giuseppe Gomez MD Primary Care Provider [phone] Encounter Details Date Type Department Care Team (Late st Contact Info) Description 04/17/2023 Scanned Document GENERIC EXTERNAL DATA DEPARTMENT Provider, MD Ebony [address] [place] [address] Social History Tobacco Use Types Packs/Day Years Used Date Smoking Tobacco: Never Alcohol Use Standard Drinks/Week Comments Not Currently 0 (1 standard drink = 0.6 oz pur e alcohol) Sex and Gender Information Value Date Recorded Sex Assigned at Not on file Gender Identity Not on file Sexual Orientation Not on file documented as of this encounter Plan of Treatment Not on file documented as of this encounter Visit Diagnoses Not on filedocumented in this encounter Care Teams Tool Polishing Machine Operator Relationship Specialty Start Date End Date Giuseppe Gomez MD [address] [place] [address] PCP - General Internal Medicine 03/09/23 documented as of this encounter
--- OUTSIDE RECORDS SUMMARY | 2024-05-29 14:28 | XMS_ITS | Patient Health Record ---
Author Organization [facility] Address [address] [place] [address] Care Team Providers Care Manager Assembly Name Role Phone Jason HOLLINS, Giuseppe Primary Care Provider Matthew Harrison Jr REASON FOR REFERRAL No Information MEDICATIONS Medication SIG (Take, Route, Fr equency, Duration) Notes Start Date End Date Status ZyrTEC Allergy 10 MG 1 tablet as needed Orally Once a day Active Excedrin PM 500-38 MG 1 tablet at bedtim e as needed Orally Once a day Active Motrin Active Flonase as needed Active IMMUNIZATIONS Vaccine Route Administration Date Status Comme nts Influenza Unknown 02/28/2019 Administered SOCIAL HISTORY Sex Assigned At : Social History Observation Description Sex Assigned At Unknown PROBLEMS Problem Type ICD Code Onset Dates Problem Status W/U Status Risk SNOMED Code Notes Problem Colon cancer screening (Z12.11) Active confirmed 600343866 Problem Gastroesophageal reflux disease, esophagitis presence not specified (K21.9) Active confirmed 736500184 PLAN OF TREATMENT Future Test Test Name Order Date COLONOSCOPY 05/22/2014 UPPER GI ENDOSCOPY 05/15/2019 COLONOSCOPY 05/15/2019 Next Appt Details Provider Name:Matthew silva Jr, 07/24/2024 02:55:00 PM, [address] [facility], [address], [place], [address], Insurance Providers Payer Name Payer Address Payer Phone Subscriber Number Group Number Insured Name Patient Relationship to Insured Coverage Start Date Coverage End Date [employer] (Unicare) [address] [place] [id number] NICOLE WEINER Self - patient is the insured MEDICAL (GENERAL) HISTORY Medical History History ICD Code degenerative joint disease nephrolithiasis Denies [place],DM,CVA,Lung disease,renal dise ase parathyroid lesions vitamin D deficiency Surgical History Surgery Date(Month/Year) breast biopsy
--- OUTSIDE RECORDS SUMMARY | 2024-05-29 14:28 | XMS_ITS | Encounter Summary ---
Author Organization [facility] Address [address] [place] [address] Care Team Providers Care Certification Engineer Name Role Phone Giuseppe Gomez MD Primary Care Provider [phone] Encounter Details Date Type Department Care Team (Late st Contact Info) Description 03/13/2023 Scanned Document [facility] Cancer [place] [facility] at [address] [phone] Wesley Penaloza MD [address] [place] [address] Social History Tobacco Use Types Packs/Day Years [...] on filedocumented in this encounter Care Teams Certification Engineer Relationship Specialty Start Date End Date Giuseppe Gomez MD [address] [facility] [place] [address] PCP - General Internal Medicine 03/09/23 documented as of this encounter
--- OUTSIDE RECORDS SUMMARY | 2024-05-29 14:28 | XMS_ITS | Patient Health Record ---
Author Organization [facility] Address [address] [place] [address] Care Team Providers Care Powerhouse Mechanic Apprentice Name Role Phone Giuseppe Gomez MD Primary Care Provider Narciso Adler Unavailable [phone] Allergies Allergen (clinical drug ingredient) Drug/Non Drug Allergy documented on EMR Reaction Allergy Type Onset Date Status Cat dander Cat Dander Unknown Allergy Active Dog dander Dog Dander Unknown Allergy Active Dust Mites Unknown Allergy Active Pollen Pollen Unknown Allergy Active Reason For Referral No Information Medications Medication SIG (Take, Route, Frequency, Duration) Notes Start Date End Date Status Vitamin D 25 MCG (1000 UT) 1 tablet Orally Once a day for 30 day(s) Active Physical Therapy . . DX Plantar fascial fibromatosis - M72.2 right foot 2-3x/week 09/16/2020 Active Physical Therapy 3-4x per week for 3- 4 weeks 09/16/2020 Active Motrin Active Work Note . . . Medically needed to wear cast boot to right foot until further notice 01/18/2021 Not-Ta shekhar Walking Boot/Pneumatic As directed Wear Daily for Until further notice 01/18/2021 Active ZyrTEC Active ibuprofen 1 tab Oral for 14 days PRN Active Excedrin Extra Strength 250-250-65 MG 2 tablets Orally Once a day for 30 day(s) PRN Active Immunizations Vaccine Route Administration Date Status Comme nts COVID-19 Pfizer BioNTech Vaccine Unknown 02/09/2021 Administered 1st 04/21/2020 2nd 05/12/2020 Influenza Unknown 03/15/2021 Administered Social History Tobacco Use: Social History Observation Description Date Details (start date - stop date) Never Smoker NA - NA Tobacco Use/Smoking Question Answer Notes Are you a: nonsmoker Additional Findings: Tobacco Non-User Aggressive non-smoker Alcohol Screen Question Answer Notes Did you have a drink containing alcohol in the p ast year? Yes Points 0 Interpretation Negative Tobacco use other than smoking: Question Answer Notes Are you an other tobacco user? No Plan Of Treatment Pending Test Test Name Order Date Tc99 3 phase Bone Scan 01/18/2021 X ray : Foot, right 3V 01/18/2021 X ray : Foot, right 3V 08/31/2020 [id number] TENDON SHEATH/LIGAMENT 0 08/31/2020 Insurance Providers Payer Name Payer Address Payer Phone Subscriber Number Group Number Insured Name Patient Relationship to Insured Coverage Start Date Coverage End Date [facility] [address] [facility] JON[place] griggs [id number] Migue Bobby Spouse - patient is the spouse of the insured Medical (General) History Medical History History ICD Code psoriasis/eczema mumps measles headaches/migraines chicken pox Reflux ( GERD) chronic sinusitis thyroid Surgical History Surgery Date(Month/Year) Dental Implant colonoscopy x 4 endoscopy x 4
--- OUTSIDE RECORDS SUMMARY | 2024-05-29 14:28 | XMS_ITS | Clinical Summary ---
Author Organization [facility] Address [address] [place] [address] Care Team Providers Care Airline Managerial Supervisor Name Role Phone Giuseppe Gomez MD Primary Care Provider [phone] Allergies Active Allergy Reactions Criticality Noted Date Comments Dog Epithelium (Canis Lupus Familiaris) Unknown/Patient and Family Unable to Define Medium 03/05/2023 Nasal congestion Pollen Extract Unknown/Patient and Family Unable to Define Medium 03/13/2023 Medications Medication Sig Dispensed Refills Start Date End Date Status aspirin-acetaminophen- caffeine (EXCEDRIN MIGRAINE) 250-250-65 mg per tablet Take 2 tablets by mouth. Active atorvastatin (LIPITOR) 10 MG tablet Take 1 tablet (10 mg total) by mouth daily. 01/30/2023 Active cetirizine (ZyrTEC) 10 MG tablet Take 1 tablet (10 mg total) by mouth daily. Active Vitamin D3 (CHOLECALCIFEROL) 25 MCG (1000 UT) Cap Take 1 capsule by mouth daily. Active ibuprofen (MOTRIN) 200 MG tablet Take by mouth. Active levalbuterol (XOPENEX HFA) 45 mcg/puff inhaler INHALE 2 PUFFS BY MOUTH EVERY 4 HOURS NEEDED FOR FOR WHEEZING 02/12/2023 Active lisinopril (PRINIVIL,ZeSTRIL) 10 MG tablet Take 1 tablet (10 mg total) by mouth daily. 02/12/2023 Active nystatin (MYCOSTATIN) 375309 UNIT/GM cream Apply topically. 07/03/2022 Active ondansetron (ZOFRAN-ODT) 8 MG disintegrating tablet DISSOLVE 1 TABLET ON THE TONGUE EVERY 8 HOURS INS LIMITATION 03/05/2023 Active Tagrisso 80 MG tablet 03/06/2023 Act trav triamcinolone (KENALOG) 0.1 % cream APPLY TWICE DAILY TO AFFECTED AREAS ON THE NECK FOR ONE WEEK, BREAK ONE WEEK, REPEAT NEEDED. 07/03/2022 Active mometasone (ELOCON) 0.1 % lotion APPLY TO SCALP TWICE DAILY FOR TWO WEEKS BREAK FOR ONE WEEK THEN REPEAT NEEDED FOR ITCHING 07/03/2022 Active ketoconazole (NIZORAL) 2 % shampoo PLEASE SEE ATTACHED FOR DETAILED DIRECTIONS 01/31/2023 Active Coenzyme Q10 (Co Q-10) 300 MG Cap Take by mouth. Active magnesium oxide 200 MG tablet Take 1 tablet (200 mg total) by mouth daily. Sunday, Sunday and Sunday Active denosumab (Xgeva) 120 MG/1.7ML Solution subcutaneous injection Inject 1.7 mL (120 mg total) under the skin once. 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 Cancer Staging:Clinical:Stage JERMAINE(pM1b) - Unsigned Family History Medical History Relation Name Comments Colon cancer Father Breast cancer Sister 1 Relation Name Status Comments Father Sister 1 Alive Sister 2 Alive Sister 3 Alive Social History Tobacco Use Types Packs/Day Years Used Date Smoking Tobacco: Never Alcohol Use Standard Drinks/Week Comments Not Currently 0 (1 standard drink = 0.6 oz pur e alcohol) Sex and Gender Information Value Date Recorded Sex Assigned at Not on file Gender Identity Not on file Sexual Orientation Not on file Last Filed Vital Signs Vital Sign Reading Time Taken Comments Blood Pressure 126/79 03/13/2023 3:03 PM EST Pulse 65 03/13/2023 3:03 PM EST Temperature 36.7 ??C (98.1 ??F) 03/13/2023 3:03 PM ES T Respiratory Rate 18 03/13/2023 3:03 PM EST Oxygen Saturation 98% 03/13/2023 3:03 PM EST Inhaled Oxygen Concentration - - Weight - - Height - - Body Mass Index - - Plan of Treatment Health Maintenance Due Date Last Done Comments Hepatitis C Virus Screening 1960 Pneumococcal Vaccine: Pediatric (0-5 Years) and At-Risk Patients (6 to 49 Years) (1 of 2 - PCV) 1966 HIV Screening 1973 DTaP/Tdap/Td Vaccines (1 - Tdap) 12/13/1979 Pneumococcal Vaccines 50+ (1 of 2 - PCV) 12/13/1979 Zoster (Shingles) Vaccine (1 of 2) 12/13/1979 Pap Smear (Ages 21-65) 1981 Mammogram 2000 Colonoscopy 2005 RSV Vaccine 60 years and older and Patients (1 - Risk 60-74 years 1-dose series) 2020 Influenza Vaccine 11/29/2023 03/05/2023, , 03/17/2021, Additional history exists COVID-19 Vaccine ( season) 2023 02/09/2021, 05/12/2020, 04/21/2020 Hepatitis B Vaccines Aged Out No long er eligible based on patient's age to complete this topic Care Teams Airline Managerial Supervisor Relationship Specialty Start Date End Date Giuseppe Gomez MD [address] [place] [id number] PCP - General Internal Medicine 03/09/23
--- OUTSIDE RECORDS SUMMARY | 2024-05-29 14:28 | XMS_ITS ---
[facility] Name [facility] History of Medication Use Medication Directions Dispensed Refills Start Date End Date Stat ketoconazole (NIZORAL) 2 % shampoo PLEASE SEE ATTACHED FOR DETAILED DIRECTIONS 01/31/2023 active cetirizine (ZyrTEC) 10 MG tablet Take 1 tablet (10 mg total) by mouth daily. active ibuprofen (MOTRIN) 200 MG tablet Take by mouth. active Coenzyme Q10 (Co Q-10) 300 MG Cap Take by mouth. acti ve lisinopril (PRINIVIL,ZeSTRIL) 10 MG tablet Take 1 tablet (10 mg total) by mouth daily. 02/12/2023 active levalbuterol (XOPENEX HFA) 45 mcg/puff inhaler INHALE 2 PUFFS BY MOUTH EVERY 4 HOURS NEEDED FOR FOR WHEEZING 02/12/2023 active Tagrisso 80 MG tablet 03/06/2023 active denosumab (Xgeva) 120 MG/1.7ML Solution subcutaneous injection Inject 1.7 mL (120 mg total) under the skin once. Monthly active Problems Problem Status Onset Date Problem Type Date of Resoluti on Source NSCLC metastatic to bone active 2023-03-13 [facility]
== END 2024-05-29 10:43 | disposition home or self-care (01) ==
LOC: HO.XRAY 10:42
PROVIDERS: PCP Internal Medicine; Visit Provider Internal Medicine Medical Oncology
DX: R05.9 Cough, unspecified (principal); Z85.118 Personal history of other malignant neoplasm of bronchus and lung
CPT/HCPCS: 0241U; 71046

== ENCOUNTER → 2024-05-29 10:57 | Outpatient (BNV) | payer OTHER, SELFPAY | PROVIDERS: PCP Internal Medicine; Visit Provider Radiology Diagnostic Radiology | DX: C79.51 Secondary malignant neoplasm of bone (principal); R91.8 Other nonspecific abnormal finding of lung field | CPT/HCPCS: 71046 ==

== ENCOUNTER 2024-07-16 10:27 | Outpatient (REF) | payer OTHER, SELFPAY ==
--- NOTE | ~2024-07-16 | MM_ITS ---
EXAMINATION: MM DIAGNOSTIC DIGITAL BREAST TOMOSYNTHESIS, BILATERAL CLINICAL INFORMATION: New left nipple inversion. Recent history of left lung cancer 18 months ago Family history of breast cancer including mother at 45 and sister at 38. COMPARISON: Mammography: Comparison is made with relevant prior exams. TECHNIQUE: Digital breast mammography with tomosynthesis is performed in both the craniocaudal and mediolateral oblique views along with computer-aided detection (CAD). FINDINGS: The breasts are heterogeneously dense, which may obscure small masses (ACR BI-RADS breast composition Category c). Left: Marker clips in the upper outer left breast from previous benign needle core biopsies. No suspicious masses calcifications or other abnormal findings. Targeted color Doppler ultrasound scanning in the left retroareolar region demonstrates normal fibronodular breast tissue. There is no sonographic abnormality. Right: No suspicious masses calcifications or other abnormal findings. Results are provided to the patient at time of visit by the technologist. MM/MM tomosynthesis diagnostic BI IMPRESSION: Right: Negative. Left: New nipple inversion without mammographic or sonographic abnormality. Given the patient's new symptoms and strong family history of breast cancer recommend breast MRI for further evaluation. Findings and recommendations discussed with the patient. ASSESSMENT: BI-RADS BI-RADS 2 - Benign Findings RECOMMENDATION: 1 year F/U This patient's information was entered into a reminder system with a target due date for their next mammogram. Electronically signed by: Bhavya Rolle DO 07/16/2024 11:55 AM EDT
--- OUTSIDE RECORDS SUMMARY | 2024-07-16 12:20 | XMS_ITS | Patient Health Record ---
Author Organization [facility] Address [address] [place] [address] Care Team Providers Care Carpet Layer Name Role Phone Jason HOLLINS, Giuseppe Primary Care Provider Matthew Harrison Jr [phone] Reason For Referral No Information Medications Medication SIG (Take, Route, Fr equency, Duration) Notes Start Date End Date Status ZyrTEC Allergy 10 MG 1 tablet as needed Orally Once a day Active Excedrin PM 500-38 MG 1 tablet at bedtim e as needed Orally Once a day Active Motrin Active Flonase as needed Active Immunizations Vaccine Route Administration Date Status Comme nts Influenza Unknown 02/28/2019 Administered Problems Problem Type SNOMED Code ICD Code Onset Dates Problem Status W/U Status Risk Notes Problem 441338249 Colon cancer screening (Z12.11) Active confirmed Problem 584041147 Gastroesophageal reflux disease, esophagitis presence not specified (K21.9) Active confirmed Plan Of Treatment Future Test Test Name Order Date COLONOSCOPY 05/22/2014 UPPER GI ENDOSCOPY 05/15/2019 COLONOSCOPY 05/15/2019 Next Appt Details Provider Name:Matthew silva Jr, 07/24/2024 02:55:00 PM, [address], [address], [place], [address], Insurance Providers Payer Name Payer Address Payer Phone Subscriber Number Group Number Insured Name Patient Relationship to Insured Coverage Start Date Coverage End Date [employer] (Unicare) [address] [place] [id number] MEON, NICOLE Self - patient is the insured Medical (General) History Medical History History ICD Code degenerative joint disease nephrolithiasis Denies AR,DM,CVA,Lung disease,renal dise ase parathyroid lesions vitamin D deficiency Surgical History Surgery Date(Month/Year) breast biopsy
--- OUTSIDE RECORDS SUMMARY | 2024-07-16 12:20 | XMS_ITS | Patient Health Record ---
Author Organization [facility] Address [address] [facility] [address] Care Team Providers Care Cycle Touring Guide Name Role Phone Giuseppe Gomez MD Primary Care Provider Narciso Adler Unavailable [phone] Allergies Allergen (clinical drug ingredient) Drug/Non Drug [...] X ray : Foot, right 3V 08/31/2020 [id number] TENDON SHEATH/LIGAMENT 0 08/31/2020 Insurance Providers Payer Name Payer Address Payer Phone Subscriber Number Group Number Insured Name Patient Relationship to Insured Coverage Start Date Coverage End Date [facility] [address] [facility] J[place] griggs [id number] Migue Bobby Spouse - patient is the spouse of the insured Medical (General) History Medical History History ICD Code psoriasis/eczema mumps measles headaches/migraines chicken pox Reflux ( GERD) chronic sinusitis thyroid Surgical History Surgery Date(Month/Year) Dental Implant colonoscopy x 4 endoscopy x 4
--- OUTSIDE RECORDS SUMMARY | 2024-07-16 12:20 | XMS_ITS | Encounter Summary ---
Author Organization [facility] Address [address] [place] [address] Care Team Providers Care Poultry Barn Manager Name Role Phone Giuseppe Gomez MD Primary Care Provider [phone] Encounter Details Date Type Department Care Team (Late st Contact Info) Description 04/17/2023 Scanned Document GENERIC EXTERNAL DATA DEPARTMENT Provider, MD Ebony [address] [place] [address] Social History Tobacco Use Types Packs/Day Years [...] on filedocumented in this encounter Care Teams Poultry Barn Manager Relationship Specialty Start Date End Date Giuseppe Gomez MD [address] [place] [address] PCP - General Internal Medicine 03/09/23 documented as of this encounter
--- OUTSIDE RECORDS SUMMARY | 2024-07-16 12:20 | XMS_ITS | Encounter Summary ---
Author Organization [facility] Address [address] [place] [address] Care Team Providers Care Seafood Harvester Name Role Phone Giuseppe Gomez MD Primary Care Provider [phone] Encounter Details Date Type Department Care Team (Late st Contact Info) Description 03/13/2023 Scanned Document [facility] Cancer [place] [facility] at [address] [phone] Wesley Penaloza MD [address] [place] [address] Social History Tobacco Use Types Packs/Day Years [...] on filedocumented in this encounter Care Teams Seafood Harvester Relationship Specialty Start Date End Date Giuseppe Gomez MD [address] [facility] [place] [address] PCP - General Internal Medicine 03/09/23 documented as of this encounter
--- OUTSIDE RECORDS SUMMARY | 2024-07-16 12:20 | XMS_ITS | Clinical Summary ---
Author Organization [facility] Address [address] [place] [address] Care Team Providers Care Typo Machine Operator Name Role Phone Giuseppe Gomez MD Primary Care Provider [phone] Allergies Active Allergy Reactions Criticality Noted Date [...] by mouth daily. 02/12/2023 Active nystatin (MYCOSTATIN) 918344 UNIT/GM cream Apply topically. 07/03/2022 Active ondansetron [...] Done Comments Hepatitis C Virus Screening 1960 HIV Screening 1973 DTaP/Tdap/Td Vaccines (1 - Tdap) 12/13/1979 Pneumococcal Vaccines 50+ (1 of 2 - PCV) 12/13/1979 Zoster (Shingles) Vaccine (1 of 2) 12/13/1979 Pap Smear (Ages 21-65) 1981 Mammogram 2000 Colonoscopy 2005 RSV Vaccine 60 years and older and Patients (1 - Risk 60-74 years 1-dose series) 2020 Influenza Vaccine 11/29/2023 03/05/2023, , 03/17/2021, Additional history exists COVID-19 Vaccine (2023- season) 2023 02/09/2021, 05/12/2020, 04/21/2020 Hepatitis B Vaccines Aged Out No long er eligible based on patient's age to complete this topic Care Teams Typo Machine Operator Relationship Specialty Start Date End Date Giuseppe Gomez MD [address] [place] [id number] PCP - General Internal Medicine 03/09/23
== END 2024-07-16 10:28 | disposition home or self-care (01) ==
LOC: HO.MAMMO 10:27
PROVIDERS: PCP Internal Medicine; Visit Provider Internal Medicine
DX: N64.59 Other signs and symptoms in breast (principal)
CPT/HCPCS: 76642; 77062; 77066

== ENCOUNTER → 2024-07-16 10:30 | Outpatient (BNV) | payer OTHER, SELFPAY | PROVIDERS: PCP Internal Medicine; Visit Provider Internal Medicine | DX: N64.53 Retraction of nipple (principal); C34.92 Malignant neoplasm of unspecified part of left bronchus or lung; Z80.3 Family history of malignant neoplasm of breast | CPT/HCPCS: 76642; 77062; 77066 ==

== ENCOUNTER 2024-08-06 11:44 | Day surgery (SDC) | payer OTHER, SELFPAY ==
--- NOTE | 2024-08-05 08:47 | P.CONAN_ITS ---
HPI - Anesthesia Eval Consult details Narrative: 63yo F for Colonoscopy PMF Active Problems Active Problems: All Active Problems Ascending aortic aneurysm (Acute) Daytime sleepiness (Acute) Snoring (Acute) FERMIN (obstructive sleep apnea) (Acute) Adenocarcinoma of lung, stage 4 (Acute ~2022) Lung cancer (Acute) Lung mass (Acute) Hemoptysis (Acute) BORGES (dyspnea on exertion) (Acute) Worsening headaches (Acute) Past Medical History Medical History High blood pressure Lung cancer AAA (abdominal aortic aneurysm) BORGES (dyspnea on exertion) History of COVID-19 Osteopenia (~2015) Hyperlipidemia Hemoptysis Lung mass Family History Family History Father Colon cancer Mother Breast cancer Thyroid disease Family history of problems with anesthesia: No Surgical History Surgical History History of bronchoscopy History of cervical biopsy History of endoscopy History of colonoscopy History of extraction of renal calculus History of Problems with Anesthesia: No Social History Social History Household Members: Spouse Are you a primary primary care coordinator to a significant other at home: No Alcohol intake: never Patient Tobacco Use Status: Never used Tobacco service: No Current occupational status: employed Meds Allergies Allergy/AdvReac Type Severity Reaction Status Date / Time cat dander [CATS] Allergy Mild RUNNY NOSE Verified 07/08/24 11:28 dog dander [DOG] Allergy Mild ITCHY EYES Verified 07/08/24 11:28 ENVIRONMENTAL Allergy Mild RUNNY NOSE Uncoded 07/08/24 11:28 SEASONAL ALLERGIES Allergy Mild RUNNY NOSE Uncoded 07/08/24 11:28 Home Medications ?Medication ?Instructions ?Recorded ?Confirmed ?Last Taken ?Type atorvastatin 10 mg tablet 10 mg PO DAILY 02/08/23 07/08/24 Unknown History ketoconazole 2 % shampoo 1 appl topical DAILY 02/08/23 07/08/24 Unknown History pyicndk-ejrblxyajweze-bmlkiklq 250 1 tab PO Q4-6H PRN Pain 02/09/23 07/08/24 Unknown History mg-250 mg-65 mg tablet (Excedrin Extra Strength) cholecalciferol (vitamin D3) 50 50 mcg PO DAILY 02/09/23 07/08/24 Unknown History mcg (2,000 unit) capsule coenzyme Q10 300 mg capsule 300 mg PO DAILY 02/09/23 07/08/24 Unknown History magnesium 200 mg tablet 400 mg PO DAILY 02/09/23 07/08/24 Unknown History mometasone 0.1 % topical solution 1 appl topical DAILY 02/09/23 07/08/24 Unknown History nystatin 100,000 unit/gram topical 1 appl topical BID 02/09/23 07/08/24 Unknown History cream cetirizine 10 mg tablet 10 mg PO DAILY 02/13/23 07/08/24 Unknown History denosumab 120 mg/1.7 mL (70 mg/mL) 120 mg subcut Q4W 04/11/23 07/08/24 Unknown History subcutaneous solution (Xgeva) lisinopril 10 mg tablet 10 mg PO DAILY 06/13/23 07/08/24 Unknown History Exam Pertinent Lab Results Pertinent Lab Results: Laboratory Tests 07/08/24 08:17 WBC 4.8 Hgb 11.6 L Hct 34.6 L Plt Count 214 Sodium 141 Potassium 3.9 Chloride 110 H Carbon Dioxide 24 BUN 20 H Creatinine 0.95 Narrative Narrative: ECHO 2023 Conclusions: - The left ventricular systolic function is normal. The visually estimated ejection fraction is between 60-65%. - No obvious valvular pathology seen on this study. - There is moderate dilatation of the ascending aorta measuring 4.70 cm. Assessment and Plan Assessment Anesthesia Assessment: Chart Reviewed Final Anesthetic Review Family History of Problems with Anesthesia: No History of Problems with Anesthesia: No
[2024-08-06 11:57] VITALS: BMI 34.4
[2024-08-06 12:12] VITALS: BP 130/72; PULSE 75; RESP 16; TEMP 36.8; O2SAT 98
--- NOTE | 2024-08-06 12:48 | MHC.SHP ---
Pre-Procedural Eval Section A - 24 Hr Update-Section A only Date of Service: 08/06/24 The patient is an INPATIENT: No Changes since office visit: No Cold of Flu in the past 2 weeks, No New Medical Problems, No Changes in Medication and No Patient answered all questions The patient has been examined within 24 hours of the surgical procedure. The History & Physical has been completed within 30 days and I have reviewed it.: Yes Section B - Complete if H&P > 30 days Chief Complaint: Encounter for screening for malignant neoplasm of Allergies: Allergies Allergy/AdvReac Type Severity Reaction Status Date / Time cat dander [CATS] Allergy Mild RUNNY NOSE Verified 08/05/24 11:33 dog dander [DOG] Allergy Mild ITCHY EYES Verified 08/05/24 11:33 ENVIRONMENTAL Allergy Mild RUNNY NOSE Uncoded 08/05/24 11:33 SEASONAL ALLERGIES Allergy Mild RUNNY NOSE Uncoded 08/05/24 11:33 Plan I have reviewed the history and physical and performed a pertinent physical examination on my patient. No changes have occurred unless specified. Time Spent With Patient Time: Total time managing care of this patient today ____ minutes.
--- NOTE | 2024-08-06 13:04 | P.CONAN_ITS ---
[facility] Active Problems Active Problems: All Active Problems Ascending aortic aneurysm (Acute) Daytime sleepiness (Acute) Snoring (Acute) FERMIN (obstructive sleep apnea) (Acute) Adenocarcinoma of lung, stage 4 (Acute ~2022) Lung cancer (Acute) Lung mass (Acute) Hemoptysis (Acute) BORGES (dyspnea on exertion) (Acute) Worsening headaches (Acute) Past Medical History Medical History High blood pressure Lung cancer AAA (abdominal aortic aneurysm) BORGES (dyspnea on exertion) History of COVID-19 Osteopenia (~2015) Hyperlipidemia Hemoptysis Lung mass Patient : No Family History Family History Father Colon cancer Mother Breast cancer Thyroid disease Family history of problems with anesthesia: No Surgical History Surgical History History of bronchoscopy History of cervical biopsy History of endoscopy History of colonoscopy History of extraction of renal calculus History of Problems with Anesthesia: No Social History Social History Household Members: Spouse Are you a primary long term care administrator to a significant other at home: No Do you presently have visiting nurse or other home services: No Alcohol intake: never Patient Tobacco Use Status: Never used Tobacco Use of substances other than those prescribed or required for medical reasons: No Have you been hit, kicked, punched, or otherwise hurt by someone within the past year? If so, by whom?: No Advance Directives: No Advance Directives Information Provided: Yes Patient : No service: No Current occupational status: employed Meds Allergies Allergy/AdvReac Type Severity Reaction Status Date / Time cat dander [CATS] Allergy Mild RUNNY NOSE Verified 08/05/24 11:33 dog dander [DOG] Allergy Mild ITCHY EYES Verified 08/05/24 11:33 ENVIRONMENTAL Allergy Mild RUNNY NOSE Uncoded 08/05/24 11:33 SEASONAL ALLERGIES Allergy Mild RUNNY NOSE Uncoded 08/05/24 11:33 Active Medications: Current Medications Lactated Ringer's (Lr) 1,000 mls @ 100 mls/hr IVCONT .Q10H PRATEEK Home Medications ?Medication ?Instructions ?Recorded ?Confirmed ?Last Taken ?Type atorvastatin 10 mg tablet 10 mg PO DAILY 02/08/23 08/05/24 Unknown History ketoconazole 2 % shampoo 1 appl topical DAILY 02/08/23 08/05/24 Unknown History crlgxvt-avapnmrbrigfy-dbqwjhbb 250 1 tab PO Q4-6H PRN Pain 02/09/23 08/05/24 Unknown History mg-250 mg-65 mg tablet (Excedrin Extra Strength) cholecalciferol (vitamin D3) 50 50 mcg PO DAILY 02/09/23 08/05/24 Unknown History mcg (2,000 unit) capsule coenzyme Q10 300 mg capsule 300 mg PO DAILY 02/09/23 08/05/24 07/31/24 History magnesium 200 mg tablet 400 mg PO DAILY 02/09/23 08/05/24 Unknown History mometasone 0.1 % topical solution 1 appl topical DAILY 02/09/23 08/05/24 Unknown History nystatin 100,000 unit/gram topical 1 appl topical BID 02/09/23 08/05/24 Unknown History cream cetirizine 10 mg tablet 10 mg PO DAILY 02/13/23 08/05/24 Unknown History denosumab 120 mg/1.7 mL (70 mg/mL) 120 mg subcut Q4W 04/11/23 08/05/24 Unknown History subcutaneous solution (Xgeva) lisinopril 10 mg tablet 10 mg PO DAILY 06/13/23 08/05/24 Unknown History Exam Height,Weight and Vital Signs: Height 5 ft 2 in Weight 85.4 kg Last Vital Signs Temp 98.3 F 08/06/24 12:12 Pulse 75 08/06/24 12:12 Resp 16 08/06/24 12:12 BP 130/72 08/06/24 12:12 Pulse Ox 98 08/06/24 12:12 O2 Del Method Room Air 08/06/24 12:12 Airway Mallampati Class: II TM Dist: >3cm Neck ROM: Full Heart: RRR Lungs: CTA Assessment and Plan Assessment Anesthesia Assessment: Anesthesia Plan Discussed and Chart Reviewed Final Anesthetic Review Family History of Problems with Anesthesia: No History of Problems with Anesthesia: No NPO: Yes ASA Class: II Final Preanesthetic Review: Meds/Allgs Chart Reviewed, Consent Obtained/Reviewed and Anes Risks/Benef Reviewed Patient Risk: Low Procedure Risk: Low Anesthetic Plan Anesthetic Plan: MAC: Disposition: Standard PACU
[2024-08-06 13:19] VITALS: BP 100/54; PULSE 67; RESP 16; TEMP 36.6; O2SAT 95
--- NOTE | 2024-08-06 13:28 | OP_ITS ---
DATE OF SERVICE: 08/06/2024 SURGEON: Matthew Appiah MD INDICATIONS: Colon cancer screening and family history of colon cancer. PREOPERATIVE DIAGNOSIS: POSTOPERATIVE DIAGNOSIS: PROCEDURE PERFORMED: Colonoscopy to terminal ileum. ESTIMATED BLOOD LOSS: COMPLICATIONS: ANESTHESIA: ASSISTANTS: Monitored anesthesia care. SPECIMENS: DESCRIPTION OF PROCEDURE: History and physical performed. The risks and benefits of the procedure were explained to the patient. Informed consent was obtained. The patient was placed in the left lateral decubitus position. A digital rectal exam was performed and was found to be normal. The Olympus pediatric videocolonoscope was introduced into the rectum and advanced to the cecum. The cecum was identified by transillumination, palpation, and identification of ileocecal valve. Examination was performed. The scope was removed. She tolerated the procedure well and returned to recovery area in stable condition. FINDINGS: The terminal ileum was examined and appeared normal. The visualized colonic mucosa was within normal limits. The quality of the prep was excellent. No polyps were identified. Retroflexed examination showed some moderate-sized internal hemorrhoids. There was mild sigmoid diverticulosis with single diverticulum identified in the right colon. IMPRESSION: Normal colonoscopy. RECOMMENDATION: 1. Follow up as needed. 2. Repeat colonoscopy is recommended in 5 years for family history. MD SANDRO Gonzalez/NICOLAS / [phone]
[2024-08-06 13:35] VITALS: BP 110/57; PULSE 64; RESP 16; O2SAT 98
[2024-08-06 13:48] VITALS: BP 132/61; PULSE 60; RESP 16; TEMP 36.6; O2SAT 100
== END 2024-08-06 14:09 | disposition home or self-care (01) ==
PROVIDERS: PCP Nurse Practitioner Family; Visit Provider Internal Medicine Gastroenterology
PROC: 0DJD8ZZ Inspection of Lower Intestinal Tract, Via Natural or Artificial Opening Endoscopic (ICD-10-PCS; CPT 45378; principal; 2024-08-06 13:00)
DX: Z12.11 Encounter for screening for malignant neoplasm of colon (principal); Z80.0 Family history of malignant neoplasm of digestive organs; K57.30 Diverticulosis of large intestine without perforation or abscess without bleeding; K64.8 Other hemorrhoids; C34.11 Malignant neoplasm of upper lobe, right bronchus or lung; C79.51 Secondary malignant neoplasm of bone; R04.2 Hemoptysis; I10 Essential (primary) hypertension; M19.90 Unspecified osteoarthritis, unspecified site; Z87.442 Personal history of urinary calculi; E55.9 Vitamin D deficiency, unspecified; I71.20 Thoracic aortic aneurysm, without rupture, unspecified; J30.2 Other seasonal allergic rhinitis; Z79.82 Long term (current) use of aspirin; Z79.899 Other long term (current) drug therapy; Z98.890 Other specified postprocedural states
CPT/HCPCS: 45378; J2003; J2704

== ENCOUNTER 2024-09-02 09:49 | Outpatient (REF) | payer OTHER, SELFPAY ==
--- OUTSIDE RECORDS SUMMARY | 2024-09-02 11:02 | XMS_ITS | Encounter Summary ---
Author Organization [facility] Address [address] [place] [address] Care Team Providers Care Guest Attendant Name Role Phone Giuseppe Gomez MD Primary Care Provider [phone] Encounter Details Date Type Department Care Team (Late st Contact Info) Description 04/17/2023 Scanned Document GENERIC EXTERNAL DATA DEPARTMENT Provider, MD Ebony [address] [place] [address] Social History Tobacco Use Types Packs/Day Years Used Date Smoking Tobacco: Never Alcohol Use Standard Drinks/Week Comments Not Currently 0 (1 standard drink = 0.6 oz pur e alcohol) Comments Unknown Sex and Gender Information Value Date Recorded Sex Assigned at Not on file Legal Sex Female 6:48 PM EST Gender Identity Not on file Sexual Orientation Not on file documented as of this encounter Plan of Treatment Not on file documented as of this encounter Visit Diagnoses Not on filedocumented in this encounter Care Teams Guest Attendant Relationship Specialty Start Date End Date Giuseppe Gomez MD [address] [place] [address] PCP - General Internal Medicine 03/09/23 documented as of this encounter
--- OUTSIDE RECORDS SUMMARY | 2024-09-02 11:02 | XMS_ITS | Patient Health Record ---
Author Organization [facility] Address [address] [place] [phone] Care Team Providers Care Logistics Lead Name Role Phone Jason HOLLINS, Giuseppe Primary Care Provider Matthew Harrison Jr Unavailable [phone] Allergies Allergen (clinical drug ingredient) Drug/Non Drug Allergy documented on EMR Reaction Allergy Type Onset Date Status Dogs Unknown Allergy Active Reason For Referral No Information Medications Medication SIG (Take, Route, Frequency, Duration) Notes Start Date End Date Status ZyrTEC prnmet Active Zofran prn Active Albuterol Sulfate HFA 108 (90 Base) MCG/ACT 1 puff as needed Inhalation every 4 hrs prn Active Magnesium Active CoQ10 Active Multivitamin Active Lisinopril 10 MG Oral for 90 Days Active Atorvastatin Calcium 10 MG Oral for 90 Days Active Tagrisso 80 MG Oral for 30 Days Active Immunizations Vaccine Route Administration Date Status Comme nts Influenza Unknown 02/28/2019 Administered Problems Problem Type SNOMED Code ICD Code Onset Dates Problem Status W/U Status Risk Notes Problem 400106964 Colon cancer screening (Z12.11) Active confirmed Problem 356877564 Encounter for ot her preprocedural examination (Z01.818) Active confirmed Problem [id number] Gastroesophageal reflux disease, esophagitis presence not specified (K21.9) Active confirmed Vital Signs Blood pressure diastolic 11 mm Hg 07/24/2024 Height 63.5 in 07/24/2024 Blood pressure systolic 111 mm Hg 07/24/2024 Weight 190 lbs 07/24/2024 BMI 33.13 kg/m2 07/24/2024 Encounters Encounter Location Date Provider Diagnosis [facility] [place] [address] [place] [address] [place] [phone] 08/06/2024 Matthew Appiah Jr Colon cancer screening Z12.11 and Family history of colon cancer Z80.0 [facility] [address] [place] [phone] 07/24/2024 Matthewavani Appiah Jr Colon cancer screening Z12.11 and Encounter for other preprocedural examination Z01.818 [facility] [address] [facility] [address] [place] [phone] 07/31/2024 Matthew Tdfrandy Leon Assessments Encounter Date Diagnosis (ICD Code) Assessment Notes Treatment Notes Treatment Clinical Notes Section Notes 08/06/2024 Colon cancer screening (ICD-10 - Z12.11) 08/06/2024 Family history of colon cancer (ICD-10 - Z80.0) 07/24/2024 Colon cancer screening (ICD-10 - Z12.11) Colonoscopy material was printed We discussed colonoscopy today. We discussed risks and benefits of the procedure today. She understands these and agrees to proceed. This will be scheduled at her convenience. 07/24/2024 Encounter for other preprocedural examination (ICD-10 - Z01.818) We discussed colonoscopy today. We discussed risks and benefits of the procedure today. She understands these and agrees to proceed. This will be scheduled at her convenience. Plan Of Treatment Future Test Test Name Order Date COLONOSCOPY 05/22/2014 UPPER GI ENDOSCOPY 05/15/2019 COLONOSCOPY 05/15/2019 COLONOSCOPY 07/24/2024 Insurance Providers Payer Name Payer Address Payer Phone Subscriber Number Group Number Insured Name Patient Relationship to Insured Coverage Start Date Coverage End Date [facility] Insurance (Watch Over Me) [address] [place] [address] [id number] NICOLE WEINER Self - patient is the insured Medical (General) History Medical History History ICD Code degenerative joint disease nephrolithiasis Denies [place],DM,CVA,Lung disease,renal dise ase parathyroid lesions vitamin D deficiency thoracic aortic aneurysm seasonal allergies 01/2023 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
--- OUTSIDE RECORDS SUMMARY | 2024-09-02 11:02 | XMS_ITS ---
Author Organization [facility] dipak BadilloZeferino Address [address] [place] [address] Care Team Providers Care Jury Consultant Name Role Phone Giuseppe Gomez MD Primary Care Provider Unavaila ble Black, Susy Unavailable [phone] Allergies Allergen (clinical drug ingredient) Drug/Non Drug Allergy documented on EMR Reaction Allergy Type Onset Date Status Cat dander Cat Dander Unknown Allergy Active Dog dander Dog Dander Unknown Allergy Active Dust Mites Unknown Allergy Active Pollen Pollen Unknown Allergy Active REASON FOR VISIT Pcp-09/21, Open sore - Toe Medications Medication SIG (Take, Route, Frequency, Duration) Notes Start Date End Date Status Walking Boot/Pneumatic As directed Wear Daily for Until further notice 01/18/2021 Unknown ZyrTEC Unknown Work Note . . . Medically needed to wear cast boot to right foot until further notice 01/18/2021 Unknow n Physical Therapy . . DX Plantar fascial fibromatosis - M72.2 right foot 2-3x/week 09/16/2020 Unknown Physical Therapy 3-4x per week for 3- 4 weeks 09/16/2020 Unknown Excedrin Extra Strength 250-250-65 MG 2 tablets Orally Once a day for 30 day(s) PRN Active Cephalexin 500 MG 1 capsule Orally thr ee times a day for 10 days 08/18/2024 Active Vitamin D 25 MCG (1000 UT) 1 tablet Oral ly Once a day for 30 day(s) Active Motrin Unknown ibuprofen 1 tab Oral for 14 days PRN Unknown Ketoconazole Active Xgeva Active Acetaminophen Active Multivitamin Active Cetirizine HCl Activ e Osimertinib Mesylate Active Atorvastatin Calcium Active Lisinopril Active CoQ-10 Active Social History Tobacco Use: Social History Observation Description Date Details (start date - stop date) Never Smoker NA - NA Tobacco Use/Smoking Question Answer Notes Are you a: nonsmoker Additional Findings: Tobacco Non-User Aggressive non-smoker Tobacco use other than smoking: Question Answer Notes Are you an other tobacco user? No Problems Problem Type SNOMED Code ICD Code Onset Dates Problem Status W/U Status Risk Notes Problem Ulcer of toe of right foot (disorder) (097511481 [id number]) Skin ulcer of toe of right foot, limited to breakdown of skin (L97.511) Active confirmed Response to treatment Nonapplicable Vital Signs Height 5ft2in in 09/01/2024 Weight 185 lbs 09/01/2024 BMI 33.83 kg/m2 09/01/2024 Blood pressure systolic 123 mm Hg 09/02/19 25 Blood pressure diastolic 80 mm Hg 025 Procedures Procedure Date Ordered Date Performed Result Body Sit e 26228- Debride <25 sq cm 09/01/2024 N/A Encounters Encounter Location Date Provider Diagnosis [facility] [address] [address] 09/01/2024 Susy Carpio Skin ulcer of toe of right foot, limited to breakdown of skin L97.511 Assessments Encounter Date Diagnosis (ICD Code) Assessment Notes Treatment Notes Treatment Clinical Notes Section Notes 09/01/2024 Skin ulcer of toe of right foot, limited to breakdown of skin (ICD-10 - L97.511) Response to treatment Nonapplicable Patient Educated with: WOUND CARE INSTRUCTIONS.p df (WOUND CARE INSTRUCTIONS.p df) 09/01/2024 Other Plan Of Treatment Treatment Notes Assessment Notes Skin ulcer of toe of right f oot, limited to breakdown of skin Patient Educated with: WOUND CARE INSTRUCTIONS.pdf (WOUND CARE INSTRUCTIONS.pdf) Pending Test Test Name Order Date 03944- Debride <25 sq cm 09/01/2024 Next Appt Details Follow Up: 3 Weeks, Reason: Provider Name:Susy Carpio , 01/01/2025 10:15:00 AM, [address] [place] [address], [phone], Procedure Notes * Category Sub-Category Detail Notes Debride skin< 25 sq cm Open wound Physician of record performed open wound selective debridement of first 25 sq cm or less, of devitilized necrotic/nonviable soft tissue, fibrin, and exudate extending from the epidermis through the dermis, utilizing sharp dissection with sterile 15 blade, and/or tissue nippers. Sterile antibiotic dressing applied, ANESTHESIA- was accomplished TOPICALLY with Lidocaine Hydrochloride Jelly 2 percent. Hemostasis was achieved through direct pressure. Post debridement measurements: 10 mm x 4 mm x 2mm. Character of the wound post debridement is stable (17845) Progress Notes * Edna WEINER ADOB:[birth year] (63 yo F)Acc No.[id number]:09/01/2024 Progress Notes Patient:?Edna WEINER A Provider:?Susy Carpio DPM :1960???Age:63 Y???Sex:Female D ate:09/01/2024 Address:[address] [place] [address], [place], [id number] Pcp:Giuseppe Gomez MD Subjective: * Chief Complaints: * ???Pcp-09/21Open sore - Toe * HPI: ???Skin problems:?Nature:?Open sore.?Treatments:?Topical abx, soaks.? * ROS:?General/Constitutional:?Nausea?denies.?Vomiting?denies.?Hunger Thirst?denies.?Loss appetite?denies.?Chills?denies.?Fatigue?denies.?Fever?denies.?Night Sweats?denies.?Unexplained weight loss?denies.?Unexplained weight gain?denies.?HEENTM:?Dentures?denies.?Dizziness?denies.?Glasses/contacts?admits.?Retinopathy?de nies.?Blurred/double vision?denies.?TMJ?denies.?Discharge/drainage?denies.?Implants?denies.?Sore throat?denies.?Dental implants?denies.?Hard of hearing ?denies.?Difficulty chewing/swallowing/speaking?denies.?Nose bleeds?admits.?Sore mouth?denies.?Respiratory:?On Oxygen?denies.?Pneumonia/pleurisy?denies.?Bronchitis?denies.?Emphysema?denies.?C oughing?denies.?Cough blood?denies.?Shortness of breath?denies.?Wheezing?denies.?Cardiovascular:?Pacemaker?denies.?MVP?denies.?WPW?denies.?CHF?denies.?Heart attack?denies.?Septal defect?denies.?Rapid beat?denies.?Chest pain ?denies.?Atrial Fib.?denies.?Murmur/Palpitations?denies.?Gastrointestinal:?Hemorrhoids?denies.?Stomach/Abdominal pain?denies.?Dark blood stool?denies.?Irritable bowel ?denies.?Constipation?admits.?Diarrhea?admits.?Hematology:?Swelling?denies.?Clots?denies.?Varicose Veins?denies.?Bruising?admits.?Bleeding problem?denies.?Genitourinary:?Blood urine?denies.?Frequent/Painfu/urination/bladder control?denies.?Kidney stones?admits.?Infection (UTI)?denies.?Nephropathy?denies.?sex trans dis (STD)?denies.?Prostate?denies.?Musculoskeletal:?Hammertoes?denies.?Bunions?denies.?Back Pain?denies.?Muscle Cramps/ Resting?denies.?Muscle cramps / walking?denies.?Generalized aches and pains?admits.?Weakness?denies.?Integ.:?Sloan?denies.?Scars?denies.?Corns/calluses?denies.?Ingrown nails?admits.?Painful nails?admits.?Open Sores?denies.?Rashes?denies.?Neurologic:?Difficulty sleeping?denies.?Brain disorder?denies.?Numbness?denies.?Balance trouble?denies.?Confusion?denies.?Fainting/blackouts?denies.?Tingling?denies.?Tr emors?denies.? * Medical History:? * Surgical History:?Dental Imp lant colonoscopy x 4 endoscopy x 4 bronchoscopy breast biopsy * Hospitalization/Major Diagno stic Procedure:?Denies Past Hospitalization * Family History:?Mother: fidel munoz, diagnosed with Unspecified essential hypertension.?Father: , diagnosed with Other malignant neoplasm of unspecified site, Unspecified heart disease.?Paternal Grand Mother: diagnosed with Unspecified cerebral artery occlusion with cerebral infarction.?Maternal Grand Mother: diagnosed with Diabetic - NIDDM.? * Social History:?Tobacco Use:?Tobacco Use/Smoking?Are you a:?nonsmoker ?Additional Findings: Tobacco Non-User?Aggressive non-smoker ?Tobacco use other than smoking?Are you an other tobacco user??No ???Miscellaneous:?Caffeine: yes, 1-2 cups per day tea/ occasional coffee. ?Children: yes. ?Exercise: yes, Work, Singing, walking, hiking, skiing, snowshowing. ?Marital status: . 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 * Medications:?TakingOsimertin ib Mesylate Lisinopril Atorvastatin Calcium CoQ-10 Cetirizine HCl Xgeva Ketoconazole Multivitamin Acetaminophen Excedrin Extra Strength 250-250-65 MG Tablet 2 tablets Orally Once a day , Notes to Pharmacist: PRNVitamin D 25 MCG (1000 UT) Tablet 1 tablet Orally Once a day Cephalexin 500 MG Capsule 1 capsule Orally three times a day Taking Osimertinib Mesylate Taking Lisinopril Taking Atorvastatin Calcium Taking CoQ-10 Taking Cetirizine HCl Taking Xgeva Taking Ketoconazole Taking Multivitamin Taking Acetaminophen Taking Excedrin Extra Strength 250-250-65 MG Tablet 2 tablets Orally Once a day , Notes to Pharmacist: PRNTaking Vitamin D 25 MCG (1000 UT) Tablet 1 tablet Orally Once a day Taking Cephalexin 500 MG Capsule 1 capsule Orally three times a day Unknownibuprofen 1 tab Oral , Notes to Pharmacist: PRNMotrin Physical Therapy 3-4x per week for 3-4 weeks Physical Therapy . . . DX Plantar fascial fibromatosis - M72.2 right foot 2-3x/week ZyrTEC Walking Boot/Pneumatic As directed Wear Daily Work Note . . . . Medically needed to wear cast boot to right foot until further notice Medication List reviewed and reconciled with the patientUnknown ibuprofen 1 tab Oral , Notes to Pharmacist: PRNUnknown Motrin Unknown Physical Therapy 3-4x per week for 3-4 weeks Unknown Physical Therapy . . . DX Plantar fascial fibromatosis - M72.2 right foot 2-3x/week Unknown ZyrTEC Unknown Walking Boot/Pneumatic As directed Wear Daily Unknown Work Note . . . . Medically needed to wear cast boot to right foot until further notice Medication List reviewed and reconciled with the patient * Allergies:?[facility][Allerg[facility] Ver[facility]] Objective: * Vitals:?Ht: 5ft2in, Wt:185, BMI:33.83, Shoe size: 9-9.5, BP:123/80mm Hg, Ht-cm: 157.48 cm, Wt-k.92 kg. * Examination: ???Dermatologic: ?ULCER:? LOCATION, Dorsal,T5, SIZE, 8mm X 4 mm X 1-2mm, BASE, granular to epithelialized, RIM, hyperkeratotic, UNDERMINING, absent, TRACKING, Partial to, Full thickness breakdown of skin, DRAINAGE, serosanguineous, mild, NECROTIC TISSUE, loosely-adherent, yellow slough, MALODOR, absent, CALOR, absent, ERYTHEMA, absent, PAIN ON PALPATION, mild.? Assessment: * Assessment: 1.?Skin ulcer of toe of righ t foot, limited to breakdown of skin - L97.511 (Primary)???Notes :Response to treatment Nonapplicable??? Plan: * Treatment: * Procedures:?Debride skin< 25 sq cm:?Open wound?Physician of record performed open wound selective debridement of first 25 sq cm or less, of devitilized necrotic/nonviable soft tissue, fibrin, and exudate extending from the epidermis through the dermis, utilizing sharp dissection with sterile 15 blade, and/or tissue nippers. Sterile antibiotic dressing applied, ANESTHESIA- was accomplished TOPICALLY with Lidocaine Hydrochloride Jelly 2 percent. Hemostasis was achieved through direct pressure. Post debridement measurements: 10 mm x 4 mm x 2mm. Character of the wound post debridement is stable (63190).? * Procedure Codes:?40816 ACTIV E WOUND CARE/20 CM OR < * Preventive Medicine:? ??Counseling:?Ulcer:?A detailed plan of care was reviewed with the patient. We emphasized the fact that the patient takes on an active participating role in the treatment process and emphasized to them that they are an included, valued, and important member of the wound healing team in order to reach an expedient successful outcome. The patient agreed to follow their medically recommended diet while increasing their protein intake if safely able to do so, maintain proper bodily hydration, abide by weight-bearing restrictions at all times, quit all current smoking habits if any, and diligently follow any/all dressing change instructions. It was clearly made known to the patient that if they fail to do their part, they will likely extend their course of treatment as well as possibly increase their risk of adverse events including amputation. The patient was instructed on importance of proper wound care consisting of pressure reduction, and proper maintenance of a moist wound environment. The patient is to cleanse the wound with warm soapy water/peroxide/saline, or betadine BID based on product availability. The patient is to apply ( NEOSPORIN, POLYSPORIN, or TRIPLE OINTMENT, ____) Antibiotic to the wound and cover with a DSD as directed. The patient was instructed to change dressings according to orders, or PRN saturation, leaks. The patient was instructed to monitor and report any signs or symptoms of infection or any untoward reactions. Precautions Taken: Offloading/Pressure reduction via rest/ limited activity to essential to daily life only, cane/ crutches/ walker/ knee scooter/ wheelchair, shoe modification, accommodative padding, sharp debridement, and take/apply medication as directed. THE SHORT-TERM GOALS of wound care include, prevent hospitalization, debridement to remove devitalized tissue, minimize risk for soft tissue or bone infection, initiate and promote the wound healing process, and prevent further complication such as loss of limb or life were discussed/reviewed. THE LONG-TERM GOALS of wound care include, complete wound closure if possible, facilitate patient comfort, prevent recurrence, and return the patient to their pre-ulcerative state of activity and lifestyle if possible, Debridement frequency as indicated, Every 3-4 weeks until healed.? ??Screening/Special Tests:?Fall Risk?Screening:?No falls in the past year ?FALLS: Screening for Future Fall Risk?Have you had any falls with injury in the past year??No * Follow Up:?3 Weeks * Images: * Sign off status: Completed true * Provider:?Susy Carpio DPM Date:?2024 Generated for Roly varghese/Samantha/Rula on:?09/02/2024 11:02 AM EDT History and Physical Notes * HPI (History of Present Illness) Category Sub-Category Detail Notes Category Not es Skin problems Nature: Open sore Treatments: Topical abx, soaks Examination Category Sub-Category Detail Notes Category Not es Dermatologic ULCER: LOCATION, Dorsal ,T5, SIZE, 8mm X 4 mm X 1-2mm, BASE, granular to epithelialized, RIM, hyperkeratotic, UNDERMINING, absent, TRACKING, Partial to, Full thickness breakdown of skin, DRAINAGE, serosanguineous, mild, NECROTIC TISSUE, loosely-adherent, yellow slough, MALODOR, absent, CALOR, absent, ERYTHEMA, absent, PAIN ON PALPATION, mild
--- OUTSIDE RECORDS SUMMARY | 2024-09-02 11:02 | XMS_ITS ---
Author Organization [facility] Address [address] [place] [address] Care Team Providers Care Group Exercise Instructor Name Role Phone Giuseppe Gomez MD Primary [...] Active Encounters Encounter Location Date Provider Diagnosis [facility] Outpatient [address] [place] [phone] 08/06/2024 Matthew Appiah Jr Colon cancer screening Z12.11 and Family history of colon cancer Z80.0 Assessments Encounter Date Diagnosis (ICD Code) Assessment Notes Treatment Notes Treatment Clinical Notes Section Notes 08/06/2024 Colon cancer screening (ICD-10 - Z12.11) 08/06/2024 Family history of colon cancer (ICD-10 - Z80.0) Plan Of Treatment No Information Progress Notes * HUSAM NICOLEDOB:1960 (63 yo F)Acc No.[id number]:08/06/2024 COLON WITH MAC Patient:?HUSAM NICOLE Provider:?Matthew Appiah MD :1960???Age:63 Y???Sex:Female D ate:08/06/2024 Address:[address] [place] [address], [place] Pcp:Giuseppe Gomez MD Subjective: * Chief Complaints: * ???1. Screening. * Medical History:? * Medications:?Taking Zofran , Notes to Pharmacist: prn, Taking [...] Lisinopril 10 MG Tablet Oral Objective: * Vitals:? Assessment: * Assessment: 1.?Colon cancer screening - Z12.11 (Primary)???2.?Family history of colon cancer - Z80.0??? Plan: * Treatment: * Procedure Codes:?29672 DIAGN OSTIC COLONOSCOPY, 0529F INTRVL 3+YRS PTS CLNSCP DOCD, 0528F RCMND FLW-UP 10 YRS DOCD * * The named appointment provid er may or may not be the originator of this progress note, and it is not deemed complete until electronically signed by the appointment provider. Sign off status: Pending * Provider:?Matthew Appiah MD Date:?0 08/06/2024 Generated for Roly varghese/Samantha/Saidasmitting on:?09/02/2024 11:01 AM EDT
--- OUTSIDE RECORDS SUMMARY | 2024-09-02 11:02 | XMS_ITS | Clinical Summary ---
Author Organization [facility] Address [address] [place] [address] Care Team Providers Care Oyster Grader Name Role Phone Giuseppe Gomez MD Primary Care Provider [phone] Allergies Active Allergy Reactions Criticality Noted Date Comments Dog Epithelium (Canis Lupus Familiaris) Unknown/Patient and Family Unable to Define Medium 03/05/2023 Nasal congestion Pollen Extract Unknown/Patient and Family Unable to Define Medium 03/13/2023 Medications aspirin-acetaminop hen-caffeine (EXCEDRIN MIGRAINE) 250-250-65 mg per tablet Take 2 tablets by mouth. Active atorvastatin (LIPITOR) 10 MG tablet Take 1 tablet (10 mg total) by mouth daily. 3 Active cetirizine (ZyrTEC) 10 MG tablet Take 1 tablet (10 mg total) by mouth daily. Active Vitamin D3 (CHOLECALCIFEROL) 25 MCG (1000 UT) Cap Take 1 capsule by mouth daily. Active ibuprofen (MOTRIN) 200 MG tablet Take by mouth. A ctive levalbuterol (XOPENEX HFA) 45 mcg/puff inhaler INHALE 2 PUFFS BY MOUTH EVERY 4 HOURS NEEDED FOR FOR WHEEZING 3 Active lisinopril (PRINIVIL,ZeSTRIL) 10 MG tablet Take 1 tablet (10 mg total) by mouth daily. 3 Active nystatin (MYCOSTATIN) 789668 UNIT/GM cream Apply topically. 3 Active ondansetron (ZOFRAN-ODT) 8 MG disintegrating tablet DISSOLVE 1 TABLET ON THE TONGUE EVERY 8 HOURS INS LIMITATION 3 Active Tagrisso 80 MG tablet 3 Active triamcinolone (KENALOG) 0.1 % cream APPLY TWICE DAILY TO AFFECTED AREAS ON THE NECK FOR ONE WEEK, BREAK ONE WEEK, REPEAT NEEDED. 3 Active mometasone (ELOCON) 0.1 % lotion APPLY TO SCALP TWICE DAILY FOR TWO WEEKS BREAK FOR ONE WEEK THEN REPEAT NEEDED FOR ITCHING 3 Active ketoconazole (NIZORAL) 2 % shampoo PLEASE SEE ATTACHED FOR DETAILED DIRECTIONS 3 Active Coenzyme Q10 (Co Q-10) 300 MG [...] - Risk 60-74 years 1-dose series) 2020 COVID-19 Vaccine (2023- season) 2023 02/09/2021, 05/12/2020, 04/21/2020 Influenza Vaccine 11/28/2024 03/05/2023, , 03/17/2021, Additional history exists Hepatitis B Vaccines Aged Out No long er eligible based on patient's age to complete this topic Insurance [facility] Care Teams Oyster Grader Relationship Specialty Start Date End Date Giuseppe Gomez MD [address] [place] [address] PCP - General Internal Medicine 03/09/23
--- OUTSIDE RECORDS SUMMARY | 2024-09-02 11:02 | XMS_ITS | Encounter Summary ---
Author Organization [facility] Address [address] [place] [address] Care Team Providers Care Wanigan Clerk Name Role Phone Giuseppe Gomez MD Primary Care Provider [phone] Encounter Details Date Type Department Care Team (Late st Contact Info) Description 03/13/2023 Scanned Document [facility] at [address] [phone] Wesley ePnaloza MD [address] [place] [address] Social History Tobacco Use Types Packs/Day Years [...] on filedocumented in this encounter Care Teams Wanigan Clerk Relationship Specialty Start Date End Date Giuseppe Gomez MD [address] [place], [place] [address] [address] PCP - General Internal Medicine 03/09/23 documented as of this encounter
--- OUTSIDE RECORDS SUMMARY | 2024-09-02 11:02 | XMS_ITS ---
Author Organization [facility] Address [address] [place] [address] Care Team Providers Care Electroless Plater Name Role Phone Giuseppe Gomez MD Primary Care Provider Matthew Harrison Jr Allergies Allergen (clinical drug ingredient) Drug/Non Drug Allergy documented on EMR Reaction Allergy Type Onset Date Status Dogs Unknown Allergy Active REASON FOR VISIT Patient presents today for a screening colonoscopy Medications Medication SIG (Take, Route, Frequency, Duration) Notes Start Date End Date Status Lisinopril 10 MG Oral for 90 Days Active Tagrisso 80 MG Oral for 30 Days Active Atorvastatin Calcium 10 MG Oral for 90 Days Active CoQ10 Active Magnesium Active Albuterol Sulfate HFA 108 (90 Base) MCG/ACT 1 puff as needed Inhalation every 4 hrs prn Active Zofran prn Active ZyrTEC prnmet Active Multivitamin Active Problems Problem Type SNOMED Code ICD Code Onset Dates Problem Status W/U Status Risk Notes Problem [id number] Encounter for other preprocedural examination (Z01.818) Active confirmed Vital Signs Blood pressure systolic 111 mm Hg 07/25/19 25 Blood pressure diastolic 11 mm Hg 025 Height 63.5 in 07/24/2024 Weight 190 lbs 07/24/2024 BMI 33.13 kg/m2 07/24/2024 Encounters Encounter Location Date Provider Diagnosis [facility] [address] [place] [address] 07/24/2024 Matthew Appiah Jr Colon cancer screening Z12.11 and Encounter for other preprocedural examination Z01.818 Assessments Encounter Date Diagnosis (ICD Code) Assessment Notes Treatment Notes Treatment Clinical Notes Section Notes 07/24/2024 Colon cancer screening (ICD-10 - Z12.11) [...] scheduled at her convenience. Plan Of Treatment Treatment Notes Assessment Notes Colon cancer screening Colonoscopy mater ial was printed Future Test Test Name Order Date COLONOSCOPY 07/24/2024 Next Appt Details Follow Up: 1 Year,Db moncada n: Progress Notes * EDNA WEINERDOB:1960 (63 yo F)Acc No.[id number]:07/24/2024 Progress Notes Patient:?EDNA WEINER Provider:?Matthew Appiah MD :1960???Age:63 Y???Sex:Female D ate:07/24/2024 Address:[address] [place], [place] [id number] Pcp:Giuseppe Gomez MD Subjective: * Chief Complaints: * ???1. Patient presents today for a screening colonoscopy. * HPI: ???New symptom(s):? 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 There was some associated hemoptysis, small amounts. CT scanning in the fall of January revealed a mediastinal mass with lymphadenopathy. Subsequent diagnosis was non-small cell lung carcinoma with bone mets. She is currently on treatment, and continues to sing. She is due for follow-up colonoscopy. Previous colonoscopy in July 2019 showed no lesions. She has no complaints of rectal bleeding or change in her bowel habits. Weight and appetite have been stable. * ROS:?General/Constitutional:?Change in appetite?denies.?Fatigue?denies.?ENT:?Patient denies?difficulty swallowing.?Respiratory:?Patient denies?shortness of breath.?Cardiovascular:?Patient denies?chest pain.?Gastrointestinal:?Comments?See HPI for details.?Genitourinary:?Difficulty urinating?denies.?Incontinence?denies.?Musculoskeletal:?Patient denies?muscle aches.?Skin:?Patient denies?pruritis.?Neurologic:?Patient denies?low back pain.?Psychiatric:?Patient denies?mental or physical abuse.? * Medical History:?Degenerativ e joint disease, Nephrolithiasis, Denies SD,DM,CVA,Lung disease,renal disease, Parathyroid lesions, vitamin D deficiency, Thoracic aortic aneurysm, Seasonal allergies, 01/2023 stage iv non small cell lung cancer w/mets T-6 iliac crest, EGFR + mutation/radiation RUL. * Surgical History:?breast bio psy , EBUS BRONCHOSCOPY 01/2023. * Family History:?Father: dece ased, diagnosed with Colon cancer.?Mother: alive.? * Social History:?Tobacco Use:?Tobacco Use/Smoking?Are you a: nonsmoker.?Drugs/Alcohol:?Alcohol Screen?Points: 1, Interpretation: Negative.?Miscellaneous:?Marital status: . Occupation: works at [employer] [place]/ RETIRED BUT WORKING [employer]. * Medications:?Taking Zofran , Notes to Pharmacist: [...] , Taking Lisinopril 10 MG Tablet Oral , Discontinued ZyrTEC Allergy 10 MG Tablet 1 tablet as needed Orally Once a day , Discontinued Excedrin PM 500-38 MG Tablet 1 tablet at bedtime as needed Orally Once a day , Discontinued Motrin , Discontinued Flonase as needed , Medication List reviewed and reconciled with the patient * Allergies:?Dogs. Objective: * Vitals:?Wt: 190 lbs, Ht: 63. 5 in, BMI:33.13Index, BP: 111/11 mm Hg, Wt-k.18. * Examination: ???General Examination: ?GENERAL APPEARANCE:?in no acute distress.?HEAD:?normocephalic.?EYES:?sclera non-icteric.?ORAL CAVITY:?mucosa moist.?NECK/THYROID:?no lymphadenopathy.?SKIN:?anicteric.?HEART:?S1, S2 normal, no murmurs.?LUNGS:?clear to auscultation bilaterally.?CHEST:?normal shape and expansion.?ABDOMEN:?soft, nontender, nondistended, bowel sounds present, no organomegaly .?EXTREMITIES:?no clubbing, cyanosis, or edema.?PSYCH:?cognitive function intact.? Assessment: * Assessment: 1.?Encounter for other prepr ocedural examination - Z01.818 (Primary)???2.?Colon cancer screening - Z12.11??? We discussed colonoscopy tod ay. We discussed risks and benefits of the procedure today. She understands these and agrees to proceed. This will be scheduled at her convenience. Plan: * Treatment: Notes: Colonoscopy material was printed?? * Procedure Codes:?3017F COLOR ECTAL CA SCREEN DOC REV, G9903 Pt scrn tbco id as non user, G8785 BP SCR NOT PRFRM REC REASON NOS * Preventive Medicine:? ??Counseling:?Care goal follow-up plan:?Above Normal BMI Follow-up?Giving encouragement to exercise,?BMI management provided?Yes.? 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 There was some associated hemoptysis, small amounts. CT scanning in the fall of January revealed a mediastinal mass with lymphadenopathy. Subsequent diagnosis was non-small cell lung carcinoma with bone mets. She is currently on treatment, and continues to sing. She is due for follow-up colonoscopy. Previous colonoscopy in July 2019 showed no lesions. She has no complaints of rectal bleeding or change in her bowel habits. Weight and appetite have been stable. Examination Category Sub-Category Detail Notes Category Not es General Examination GENERAL APPEARANCE: in no acute di stress HEAD: normocephalic EYES: sclera non-icteric NECK/THYROID: no lymphadenopathy HEART: S1, S2 normal, no mu rmurs CHEST: normal shape and exp ansion LUNGS: clear to auscultatio n bilaterally ABDOMEN: soft, nontender, non distended, bowel sounds present, no organomegaly SKIN: anicteric EXTREMITIES: no clubbing, cyanosi s, or edema PSYCH: cognitive function i ntact ORAL CAVITY: mucosa moist
--- OUTSIDE RECORDS SUMMARY | 2024-09-02 11:02 | XMS_ITS ---
Author Organization [facility] Address [address] [place] [address] Care Team Providers Care Service Officer Name Role Phone Giuseppe Gomez MD Primary Care Provider Matthew Harrison Jr REASON FOR VISIT update on her medication tagrisso Encounters Encounter Location Date Provider Diagnosis [facility] [address] [place] [phone] 07/31/2024 Matthew Appiah Jr Plan Of Treatment No Information Progress Notes * NICOLE WEINERDOB:1960 (63 yo F)Acc No.[id number]:07/31/2024 Patient:?NICOLE WEINER :1960???Age:63 Y???Sex:Female Address:[address] [place] [address], [facility] [place] [address] * true * Date:? Generated for Printi abimael/Samantha/eTransmitting on:?09/02/2024 11:01 AM EDT
--- OUTSIDE RECORDS SUMMARY | 2024-09-02 11:03 | XMS_ITS ---
Author Organization [facility] Address [address] [facility] [place] [address] Care Team Providers Care Tow Motor Mechanic Name Role Phone Giuseppe Gomez MD Primary Care Provider Unavaila Susy Gomez [phone] REASON FOR VISIT relay message Encounters Encounter Location Date Provider Diagnosis [facility] [address] [place] [address] 08/20/2024 Susy Carpio Plan Of Treatment Next Appt Details Provider Name:Susy Carpio , 01/01/2025 10:15:00 AM, [address] [place], [address], Progress Notes * Edna WEINER ADOB:[birth year] (63 yo F)Acc No.[id number]:08/20/2024 Patient:?Edna WEINER :1960???Age:63 Y???Sex:Female Address:[address], [place], [address] * true * Date:? Generated for Printi ng/Faxing/eTransmitting on:?09/02/2024 11:03 AM EDT
--- OUTSIDE RECORDS SUMMARY | 2024-09-02 11:03 | XMS_ITS ---
Author Organization [facility] dipak BadilloZeferino Address [address] [place] [address] Care Team Providers Care Chaperon Name Role Phone Giuseppe Gomez MD Primary Care Provider Unavaila ble Black, Susy Unavailable [phone] Allergies Allergen (clinical drug ingredient) Drug/Non Drug Allergy documented on EMR Reaction Allergy Type Onset Date Status Cat dander Cat Dander Unknown Allergy Active Dog dander Dog Dander Unknown Allergy Active Dust Mites Unknown Allergy Active Pollen Pollen Unknown Allergy Active REASON FOR VISIT Pcp-06/14/2024, Possible Infection, Ingrown nail(s) Medications Medication SIG (Take, Route, Frequency, Duration) Notes Start Date End Date Status Work Note . . . Medically needed to wear cast boot to right foot until further notice 01/18/2021 Unknow n Lisinopril Active Atorvastatin Calcium Active Osimertinib Mesylate Active Cephalexin 500 MG 1 capsule Orally thr ee times a day for 10 days 08/18/2024 Active Motrin Unknown Physical Therapy 3-4x per week for 3- 4 weeks 09/16/2020 Unknown Physical Therapy . . DX Plantar fascial fibromatosis - M72.2 right foot 2-3x/week 09/16/2020 Unknown ZyrTEC Unknown Walking Boot/Pneumatic As directed Wear Daily for Until further notice 01/18/2021 Unknown Acetaminophen Active Excedrin Extra Strength 250-250-65 MG 2 tablets Orally Once a day for 30 day(s) PRN Active Multivitamin Active Vitamin D 25 MCG (1000 UT) 1 tablet Oral ly Once a day for 30 day(s) Active ibuprofen 1 tab Oral for 14 days PRN Unknown Ketoconazole Active Xgeva Active CoQ-10 Active Cetirizine HCl Activ e Social History Tobacco Use: Social History Observation [...] Are you an other tobacco user? No Vital Signs Height 5ft2in in 08/18/2024 Weight 185 lbs 08/18/2024 BMI 33.83 kg/m2 08/18/2024 Blood pressure systolic 123 mm Hg 08/19/19 25 Blood pressure diastolic 80 mm Hg 025 Encounters Encounter Location Date Provider Diagnosis [facility] [place] [address] 08/18/2024 Susy Carpio Abscess of toe, right L02.611 ; Ingrown nail L60.0 ; Pain in left toe(s) M79.675 ; Pain in right toe(s) M79.674 and Cellulitis of right toe L03.031 Assessments Encounter Date Diagnosis (ICD Code) Assessment Notes Treatment Notes Treatment Clinical Notes Section Notes 08/18/2024 Abscess of toe, right (ICD-10 - L02.611) Patient Educated with: WOUND CARE INSTRUCTIONS.p df (WOUND CARE INSTRUCTIONS.p df) 08/18/2024 Ingrown nail (ICD-10 - L60.0) 08/18/2024 Pain in left toe(s) (ICD-10 - M79.675) 08/18/2024 Pain in right toe(s) (ICD-10 - M79.674) 08/18/2024 Cellulitis of right toe (ICD-10 - L03.031) Plan Of Treatment Medication Medication Name Sig Start Date Stop Date Notes Cephalexin 500 MG 1 capsule Orally thr ee times a day for 10 days 08/18/2024 Treatment Notes Assessment Notes Abscess of toe, right Patient Educated w ith: WOUND CARE INSTRUCTIONS.pdf (WOUND CARE INSTRUCTIONS.pdf) Next Appt Details Follow Up: 2 Weeks, Reason: Provider Name:Susy Matthews Balaji , 01/01/2025 10:15:00 AM, [address] [place], [address], Procedure Notes * Category Sub-Category Detail Notes I&D nail abscess Location , Bilateral mendoza l borders, T5 Procedure Performed incision a nd drainage of Single Nail Abscess with use of sterile nail nipper/316 blade. Approximately ( 0.1 ) cc purulent fluid material was drained. The infected devitalized soft tissue was curettaged to healthy bleeding bed. Any affected nail portion was removed to the eponychium . Any evidence of granuloma was also removed at this time. No underlying bone was visualized. There was minimal bleeding as hemostasis was achieved through the temporary use of either a digital tournaquet or the aforementioned local with epinephrine. An application of sterile Bacitracin dressing was performed. Local wound care instructions were discussed and dispensed. Recommended Tylenol or Motrin for pain/discomfort (50414) Type Single, Abscess Anesthesia 3cc of 1 percent Lid ocaine Plain local anesthesic utilizing aseptic technique Progress Notes * Edna WEINER ADOB:[birth year] (63 yo F)Acc No.[id number]:08/18/2024 Progress Notes Patient:?HUSAM Edna Matthews Provider:?Susy Carpio DPM :1960???Age:63 Y???Sex:Female D ate:08/18/2024 Address:[address] [place] [address], [facility] Pcp:Giuseppe Gomez MD Subjective: * Chief Complaints: * ???Pcp-06/14/2024Possible In fectionIngrown nail(s) * HPI: ???Possible Infection:?Nature:?swelling, drainage, redness.?Location:?Great toe, Right foot.?Duration:?several weeks.?Onset:?sudden.?Course:?worse.?Aggravated by:?any pressure.?Treatments:?soaks.? * ROS:?General/Constitutional:?Nausea?denies.?Vomiting?denies.?Hunger Thirst?denies.?Loss appetite?denies.?Chills?denies.?Fatigue?denies.?Fever?denies.?Night Sweats?denies.?Unexplained weight loss?denies.?Unexplained [...] than smoking?Are you an other tobacco user??No ???Drugs/Alcohol:?Drugs?Have you used drugs other than those for medical reasons in the past 12 months??No ?Alcohol Screen?Did you have a drink containing alcohol in the past year??Yes ?Points?0 ?Interpretation?Negative ???Miscellaneous:?Caffeine: yes, 1-2 cups per day tea/ occasional coffee. ?Children: yes. ?Exercise: yes, Work, Singing, walking, hiking, skiing, snowshowing. ?Marital status: . 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 * Medications:?TakingOsimertin ib Mesylate Lisinopril Atorvastatin Calcium CoQ-10 Cetirizine HCl Xgeva Ketoconazole Multivitamin Acetaminophen Excedrin Extra Strength 250-250-65 MG Tablet 2 tablets Orally Once a day , Notes to Pharmacist: PRNVitamin D 25 MCG (1000 UT) Tablet 1 tablet Orally Once a day Taking Osimertinib Mesylate Taking Lisinopril Taking Atorvastatin Calcium Taking CoQ-10 Taking Cetirizine HCl Taking Xgeva Taking Ketoconazole Taking Multivitamin Taking Acetaminophen Taking Excedrin Extra Strength 250-250-65 MG Tablet 2 tablets Orally Once a day , Notes to Pharmacist: PRNTaking Vitamin D 25 MCG (1000 UT) Tablet 1 tablet Orally Once a day Unknownibuprofen 1 tab Oral , Notes to Pharmacist: PRNMotrin Physical Therapy 3- 4x per week for 3-4 weeks Physical Therapy [...] with the patient * Allergies:?[facility][Allergies Verified] Objective: * Vitals:?Ht: 5ft2in, Wt:185, BMI:33.83, Shoe size: 9-9.5, BP:123/80mm Hg, Ht-cm: 157.48 cm, Wt-k.92 kg. * Examination: ???General Examination: ?GENERAL APPEARANCE:?Reveals a pleasant, alert, well nourished, well- developed, well hydrated individual, who demonstrates proper attention to hygiene/body habitus, and is in no acute distress, Denies fever, chills, malaise, lymphadenopathy.?Neurological: ?SENSORY:?Neurological exam reveals intact sensorium, pain sensation normal, vibration sensation intact, pinprick sensation is normal in the lower extremities, Pt denies, anesthesia, burning, paresthesia, tingling, B/L.?Vascular: ?DP PULSES (B):?3/4, B/L.?PT PULSES (B):?3/4, B/L.?CAPILLARY FILL TIME:?immediate, all digits, B/L.?TROPHIC CONDITION-TEXTURE/ELASTICITY/TURGOR/HAIR GROWTH (B):?normal, B/L.?TEMPERTURE GRADIENT (C):?normal, warm to cool, proximal to distal, B/L, B/L.?PIGMENTATION:?normal, B/L.?EDEMA (C):?absent, B/L.?Dermatologic: ?SKIN FINDINGS:?Skin exam reveals normal color, texture, elasticity, and turgor. There are no masses, nor excrescences. The interspaces are clear, B/L, Skin shows sign(s) of, localized cellulitis without lymphangitis T5.?Ingrown Nail: ?INSPECTION:?Reveals nail incurvation, pain on palpation, groove hypertrophy, groove ischemia, Bilateral nail borders, TA.?Abscess/infected nail: ?INSPECTION?Reveals nail incurvation, pain on palpation, groove laceration, inflammation, malodor, localized cellulitis, and purulent abscess with pre- operative size of approximately ( 1-2 ) mm square without exposed bone, Bilateral nail border, T5.? Assessment: * Assessment: 1.?Ingrown nail - L60.0???2. ?Abscess of toe, right - L02.611 (Primary)???3.?Pain in left toe(s) - M79.675???4.?Pain in right toe(s) - M79.674???5.?Cellulitis of right toe - L03.031??? Plan: * Treatment: * Procedures:?I&D nail abscess:?Type?Single, Abscess.?Anesthesia?3cc of 1 percent Lidocaine Plain local anesthesic utilizing aseptic technique.?Location?, Bilateral nail borders, T5.?Procedure?Performed incision and drainage of Single Nail Abscess with use of sterile nail nipper/316 blade. Approximately ( 0.1 ) cc purulent fluid material was drained. The infected devitalized soft tissue was curettaged to healthy bleeding bed. Any affected nail portion was removed to the eponychium . Any evidence of granuloma was also removed at this time. No underlying bone was visualized. There was minimal bleeding as hemostasis was achieved through the temporary use of either a digital tournaquet or the aforementioned local with epinephrine. An application of sterile Bacitracin dressing was performed. Local wound care instructions were discussed and dispensed. Recommended Tylenol or Motrin for pain/discomfort (53015).? * Procedure Codes:?70522 DRAIN AGE OF SKIN ABSCESS, Modifiers: T5 * Preventive Medicine:? ??Counseling:?Discussion:?-04: Office or other outpatient visit for the evaluation and management of a new patient, which required a medically appropriate history and/or examination and MODERATE level of DECISION MAKING for: 1 OR MORE CHRONIC PROBLEM(S) THATS WORSENING, 2 STABLE CHRONIC PROBLEMS, A NEWLY DIAGNOSED PROBLEM WITH UNCERTAIN PROGNOSIS, AN ACUTE COMPLICATED INJURY WITH MULTIPLE TREATMENT OPTIONS, OR AN ACUTE PROBLEM WITH ACCOMPANYING SYSTEMIC SYMPTOMS, THAT POSE(S) A MODERATE RISK OF MORBIDITY. THIS CONDITION MAY ALSO INCLUDE RX DRUG MANAGEMENT, OR A DECISON FOR MINOR SURGERY. The visit on the day of the encounter encompassed interpreting the data and educating the patient as to the nature of their condition, treatment options available according to their individual PMH, meds, allergies, and overall health/living conditions, as well as any potential risks or complications that may occur from a failure to adhere to, and participate in, the recommended course of therapy. The discussion included a complete verbal, and/or written explanation of the examination results, any x-rays taken, the proposed diagnosis, and outline of the treatment plan. A schedule for future care needs was also explained. The patient verbalized an understanding of the instructions at this time and agreed to be an active participant in their treatment. If the patient should think of any questions or concerns after the visit, I have encouraged the patient to call the office.?Abscess/Paraonychia/Ingrown Nails:?We discussed the possible etiologies (genetic, improper nail care, shoe gear, nail trauma) which may lead to ingrown nails and/or paronychial infections. We discussed and reviewed palliative/nonsurgical/deferring definitive treatment (vs) undergoing the treatment procedures of nail avulsion(s) or PNA, which may prevent recurrence and give more lasting results. The possible risks/complications such as worsened condition/delayed healing/nonhealing/failure/recurrence/infection, the potential benefits/advantages of decreased pain/deformity, as well as alterative treatment options including applying nail softening agents/nail groove packing were discussed. No guarantees were given regarding any outcome for any procedure. The patient was educated in the length of time for the affected nail to regrow once completely healed from a nail avulsion procedure. Once the condition has completely healed, the patient was consulted on proper nail care. Patient questions such as details of each procedure, varying time to heal, activity post procedure, and shoe gear were discussed and the answers were verbally confirmed fully understood, slant back performed with good relief of pain, pt to monitor for any signs of infection, pt should soak in warm water and epsom salts and apply antibotic ointment, call with any issues, The patient was consulted on proper nailcare, Pt defers PNA to the left foto at this time due to up coming vacation.?Cellulitis/Lymphangitis?The patient was counseled on the diagnosis, etiology, treatment options, and importance for adherence to recommendations regarding the treatment for Cellulitis. Abx were Rxed to address the cellulitis. The advantages and disadvantages of an antibiotic medication, along with its side effects, were discussed with the patient to their comprehended satisfaction. Patient questions re: use, dosage, and possible pharmacutical interactions were reviewed and the answers clearly understood. If the condition should worsen while taking the antibiotics as directed, it was recommeded that the patient call the office immediately or seek emergency medical care. The patient verbally confirmed a full understanding of the above information, Cont, Rxed Abx, ER: Discussed with the patient that if there is any worsening of the condition, then he/she is to report to the ER/EW for evaluation/treatment. The patient stated to fully understand the recommendations/instructions.? * Follow Up:?2 Weeks * Images: * Sign off status: Completed true * Provider:?Susy Carpio DPM Date:?2024 Generated for Roly varghese/Samantha/Rula on:?09/02/2024 11:02 AM EDT History and Physical Notes * HPI (History of Present Illness) Category Sub-Category Detail Notes Category Not es Possible Infection Location: Great toe, Right foot Duration: several weeks Nature: swelling, drainage, redness Onset: sudden Course: worse Aggravated by: any pressure Treatments: soaks Examination Category Sub-Category Detail Notes Category Not es Ingrown Nail INSPECTION: Reveals nail inc urvation, pain on palpation, groove hypertrophy, groove ischemia, Bilateral nail borders, TA Neurological SENSORY: Neurological exa m reveals intact sensorium, pain sensation normal, vibration sensation intact, pinprick sensation is normal in the lower extremities, Pt denies, anesthesia, burning, paresthesia, tingling, B/L Dermatologic SKIN FINDINGS: Skin exam reveal s normal color, texture, elasticity, and turgor. There are no masses, nor excrescences. The interspaces are clear, B/L, Skin shows sign(s) of, localized cellulitis without lymphangitis T5 General Examination GENERAL APPEARANCE: Reveals a pleasant, alert, well nourished, well-developed, well hydrated individual, who demonstrates proper attention to hygiene/body habitus, and is in no acute distress, Denies fever, chills, malaise, lymphadenopathy Vascular DP PULSES (B): 3/4, B/L PT PULSES (B): 3/4, B/L CAPILLARY FILL TIME: immediate, all digi ts, B/L TEMPERTURE GRADIENT (C): normal, warm to cool, proximal to distal, B/L, B/L TROPHIC CONDITION-TEXTURE/ELASTICITY/TURGOR/HAIR GROWTH (B): normal, B/L EDEMA (C): absent, B/L PIGMENTATION: normal, B/L Abscess/infected nail INSPECTION Reveals na il incurvation, pain on palpation, groove laceration, inflammation, malodor, localized cellulitis, and purulent abscess with pre-operative size of approximately ( 1-2 ) mm square without exposed bone, Bilateral nail border, T5
--- OUTSIDE RECORDS SUMMARY | 2024-09-02 11:03 | XMS_ITS | Patient Health Record ---
Author Organization [facility] dipak [place] Address [address] [facility] [place] [address] Care Team Providers Care Kosher Dietary Service Manager Name Role Phone Giuseppe Gomez MD Primary Care Provider Unavaila ble Black, Susy Unavailable [phone] Allergies Allergen (clinical drug ingredient) Drug/Non Drug Allergy documented on EMR Reaction Allergy Type Onset Date Status Cat dander Cat Dander Unknown Allergy Active Dog dander Dog Dander Unknown Allergy Active Dust Mites Unknown Allergy Active Pollen Pollen Unknown Allergy Active Reason For Referral No Information Medications Medication SIG (Take, Route, Frequency, Duration) Notes Start Date End Date Status Osimertinib Mesylate Active Cephalexin 500 MG 1 capsule Orally thr ee times a day for 10 days 08/18/2024 Active Vitamin D 25 MCG (1000 UT) 1 tablet Oral ly Once a day for 30 day(s) Active Atorvastatin Calcium Active Motrin Unknown Lisinopril Active ibuprofen 1 tab Oral for 14 days PRN Unknown Cetirizine HCl Activ e Physical Therapy . . DX Plantar fascial fibromatosis - M72.2 right foot 2-3x/week 09/16/2020 Unknown CoQ-10 Active Physical Therapy 3-4x per week for 3- 4 weeks 09/16/2020 Unknown Ketoconazole Active Walking Boot/Pneumatic As directed Wear Daily for Until further notice 01/18/2021 Unknown Xgeva Active ZyrTEC Unknown Acetaminophen Active Multivitamin Active Work Note . . . Medically needed to wear cast boot to right foot until further notice 01/18/2021 Unknow n Excedrin Extra Strength 250-250-65 MG 2 tablets [...] Ulcer of toe of right foot (disorder) ([id number]) Skin ulcer of toe of right foot, limited to breakdown of skin (L97.511) Active confirmed Response to treatment Nonapplicable Vital Signs Blood pressure diastolic 80 mm Hg 09/01/2024 Height 5ft2in in 09/01/2024 Blood pressure systolic 123 mm Hg 09/01/2024 Weight 185 lbs 09/01/2024 BMI 33.83 kg/m2 09/01/2024 Procedures Procedure Date Ordered Date Performed Result Body Sit e 58393- Debride <25 sq cm 09/01/2024 N/A Encounters Encounter Location Date Provider Diagnosis [facility] [address] 08/18/2024 Susy Black Abscess of toe, right L02.611 ; Ingrown nail L60.0 ; Pain in left toe(s) M79.675 ; Pain in right toe(s) M79.674 and Cellulitis of right toe L03.[address] [facility] [address] 09/01/2024 Susy Black Skin ulcer of toe of right foot, limited to breakdown of skin L97.[facility] [address] 08/12/2024 Susy Black [address] [address] 08/20/2024 Susy Black Assessments Encounter Date Diagnosis (ICD Code) Assessment Notes Treatment Notes Treatment Clinical Notes Section Notes 08/18/2024 Ingrown nail (ICD-10 - L60.0) 08/18/2024 Abscess of toe, right (ICD-10 - L02.611) Patient Educated with: WOUND CARE INSTRUCTIONS.p df (WOUND CARE INSTRUCTIONS.p df) 09/01/2024 Skin ulcer of toe of right foot, limited to breakdown of skin (ICD-10 - L97.511) Response to treatment Nonapplicable Patient Educated with: WOUND CARE INSTRUCTIONS.p df (WOUND CARE INSTRUCTIONS.p df) 08/18/2024 Pain in left toe(s) (ICD-10 - M79.675) 08/18/2024 Pain in right toe(s) (ICD-10 - M79.674) 08/18/2024 Cellulitis of right toe (ICD-10 - L03.031) 09/01/2024 Other Plan Of Treatment Pending Test Test Name Order Date Tc99 3 phase Bone Scan 01/18/2021 X ray : Foot, right 3V 08/31/2020 X ray : Foot, right 3V 01/18/2021 92620- Debride <25 sq cm 09/01/2024 [id number] TENDON SHEATH/LIGAMENT 0 08/31/2020 Next Appt Details Provider Name:Susy Carpio , 01/01/2025 10:15:00 AM, [address] [place] [address], [phone], Insurance Providers Payer Name Payer Address Payer Phone Subscriber Number Group Number Insured Name Patient Relationship to Insured Coverage Start Date Coverage End Date [facility] ([facility] [address] [place] [address] [id number] Spouse - patient is the spouse of the insured Medical (General) History Medical History History ICD Code psoriasis/eczema mumps measles headaches/migraines chicken pox Reflux ( GERD) chronic sinusitis thyroid Cancer covid-19 High Blood Pressure Lung disease sinusitis Chicken pox Surgical History Surgery Date(Month/Year) Dental Implant colonoscopy x 4 endoscopy x 4 bronchoscopy breast biopsy
== END 2024-09-02 09:50 | disposition home or self-care (01) ==
LOC: HO.LAB 09:49
PROVIDERS: PCP Internal Medicine; Visit Provider Internal Medicine
DX: Z13.89 Encounter for screening for other disorder (principal)

== ENCOUNTER 2024-10-03 10:57 | Outpatient (REF) | payer OTHER, SELFPAY ==
--- NOTE | ~2024-10-03 | MR_ITS ---
EXAMINATION: MR BREAST WITHOUT AND WITH CONTRAST, BILATERAL CLINICAL INFORMATION: New left-sided nipple inversion. History of lung cancer. Strong family history of breast cancer. COMPARISON: Mammography and ultrasound July 16, 2024 may lower screening July 11, 2023. Chest CT October 09, 2023. TECHNIQUE: Imaging of the breast was performed using T1, T2 and fat saturated techniques. Dynamic multiphase imaging was also performed after administration of intravenous gadolinium contrast agent. Contrast generated 3-D reconstruction was generated. FINDINGS: There is scattered fibroglandular breast tissue with moderate background enhancement. LEFT BREAST: No suspicious enhancing masses or areas of nonmass enhancement. No architectural distortion. No internal mammary or axillary adenopathy. RIGHT BREAST: No suspicious enhancing masses or areas of nonmass enhancement. No architectural distortion. No internal mammary or axillary adenopathy. Other: There is a T2 hyperintense anterior mediastinal mass series 2 image 35/72 with some vascular connections and no definite enhancement in subtraction imaging however contrast does not optimize for chest imaging. The mass measures 23 mm transverse by 15 mm anterior to posterior by 21 mm superior to inferior. (Also seen series 3 image 74/150). MR/MR breast BI wo/w con IMPRESSION: 1. 23 mm T2 hyperintense anterior mediastinal mass versus vascular malformation/cyst without definite enhancement. Recommend additional dedicated chest cross-sectional imaging for further evaluation/confirmation. These findings and recommendations recommend continued to Dr. Cordero patient's oncologist. 2. No MRI evidence of malignancy bilateral breasts. 3. No MRI abnormality to explain the patient's new left nipple inversion. Recommend clinical evaluation and follow-up. ASSESSMENT: LEFT BREAST: BI-RADS 1-Negative RIGHT BREAST: BI-RADS 1-Negative RECOMMENDATIONS: Recommend yearly breast MRI screening surveillance. Recommend yearly mammography screening. Recommend clinical evaluation and additional cross-sectional imaging for further evaluation of anterior mediastinal mass. Electronically signed by: Bhavya Rolle DO 10/05/2024 08:07 PM EDT
--- OUTSIDE RECORDS SUMMARY | 2024-10-03 11:55 | XMS_ITS ---
Author Organization [facility] Address [address] [place] [address] Care Team Providers Care Metal Technician Name Role Phone Giuseppe Gomez MD Primary Care Provider Matthew Harrison Jr REASON FOR VISIT update on her medication tagrisso Encounters Encounter Location Date Provider Diagnosis [facility] [address] [place] [address] 07/31/2024 Matthew Appiah Jr Plan Of Treatment No Information Progress Notes * NICOLE WEINERDOB:1960 (63 yo F)Acc No.[id number]:07/31/2024 Patient:NICOLE PATEL :1960???Age:63 Y???Sex:Female Address:[address] [place] [address], [facility] [address] * true * Date:? Generated for Printi abimael/Samantha/eTransmitting on:?10/03/2024 11:54 AM EDT
== END 2024-10-03 10:58 | disposition home or self-care (01) ==
LOC: HO.MRI 10:57
PROVIDERS: PCP Internal Medicine; Visit Provider Internal Medicine Medical Oncology
DX: C34.90 Malignant neoplasm of unspecified part of unspecified bronchus or lung (principal)
CPT/HCPCS: 77049

== ENCOUNTER → 2024-10-03 10:57 | Outpatient (BNV) | payer OTHER, SELFPAY | PROVIDERS: PCP Internal Medicine; Visit Provider Internal Medicine | DX: R92.313 Mammographic fatty tissue density, bilateral breasts (principal) | CPT/HCPCS: 77049 ==

== ENCOUNTER → 2024-12-26 10:06 | Outpatient (REF) | payer OTHER, SELFPAY ==
--- OUTSIDE RECORDS SUMMARY | 2024-08-06 09:00 | XMS_ITS ---
Author Organization [facility] Address [address] [place] [id number] Care Team Providers Care Environmental Services Floor Tech Name Role Phone Giuseppe Gomez MD Primary Care Provider UnavailMatthew Parisi Jr REASON FOR VISIT screening Medications Medication SIG (Take, Route, Frequency, Duration) Notes Start Date End Date Status ZyrTEC prnmet Active Zofran prn Active Multivitamin Active Lisinopril 10 MG Oral for 90 Days Active Atorvastatin Calcium 10 MG Oral for 90 Days Active Albuterol Sulfate HFA 108 (90 Base) MCG/ACT 1 puff as needed Inhalation every 4 hrs prn Active Magnesium Active CoQ10 Active Tagrisso 80 MG Oral for 30 Days Active Encounters Encounter Location Date Provider Diagnosis [facility] [place] [address] [place] [id number] 08/06/2024 Matthew Appiah Jr Colon cancer screening Z12.11 and Family history of colon cancer Z80.0 Assessments Encounter Date Diagnosis (ICD Code) Assessment Notes Treatment Notes Treatment Clinical Notes Section Notes 08/06/2024 Colon cancer screening (ICD-10 - Z12.11) 08/06/2024 Family history of colon cancer (ICD-10 - Z80.0) Plan Of Treatment No Information Progress Notes * NICOLE WEINERDOB:1960 (64 yo F)Acc No.[id number]:08/06/2024 COLON WITH MAC Patient: NICOLE HINOJOSA Provider: Margi Appiah MD :1960 A ge:63 Y S ex:Female Date:08/06/2024 Address:[address] [place] [address], [id number] Pcp:Giuseppe Gomez MD Subjective: * Chief Complaints: * 1 . Screening. * Medical History: * Medications: T aking Zofran , Notes to Pharmacist: prn, Taking ZyrTEC , Notes to Pharmacist: prnmet, Taking Multivitamin , Taking CoQ10 , Taking Magnesium , Taking Albuterol Sulfate HFA 108 (90 Base) MCG/ACT Aerosol Solution 1 puff as needed Inhalation every 4 hrs , Notes to Pharmacist: prn, Taking Tagrisso 80 MG Tablet Oral , Taking Atorvastatin Calcium 10 MG Tablet Oral , Taking Lisinopril 10 MG Tablet Oral Objective: * Vitals: Assessment: * Assessment: 1. C olon cancer screening - Z12.11 (Primary) 2 . F amily history of colon cancer - Z80.0 Plan: * Treatment: * Procedure Codes: 4 5378 DIAGNOSTIC COLONOSCOPY, 0529F INTRVL 3+YRS PTS CLNSCP DOCD, 0528F RCMND FLW-UP 10 YRS DOCD * * The named appointment provid er may or may not be the originator of this progress note, and it is not deemed complete until electronically signed by the appointment provider. Sign off status: Pending * Provider: Margi Appiah MD Date: 0 08/06/2024 Generated for Roly varghese/Samantha/Saidasmitting on: 0 12/26/2024 10:49 AM EDT
--- OUTSIDE RECORDS SUMMARY | 2024-09-30 04:30 | XMS_ITS ---
Author Organization [facility] Address [address] [place] [address] Care Team Providers Care Office Helper Clerical Name Role Phone Giuseppe Gomez MD Primary Care Provider Unavaila Susy Gomez [phone] Encounters Encounter Location Date Provider Diagnosis [address] [address] 09/30/2024 Susy Carpio Plan Of Treatment Next Appt Details Provider Name:Susy A Balaji , 01/01/2025 10:15:00 AM, [address] [place], [address], Progress Notes * Edna CONWAY ADOB:[birth year] (64 yo F)Acc No.[id number]:09/30/2024 Progress Notes Patient: Edna HINOJOSA Provider: Ankit Carpio DPM :1960 A ge:63 Y S ex:Female Date:09/30/2024 [address] [id number] Pcp:Giuseppe Gomez MD Subjective: * Chief Complaints: * * Medical History: Objective: * Vitals: Assessment: Plan: * Treatment: * Images: * The named appointment provid er may or may not be the originator of this progress note, and it is not deemed complete until electronically signed by the appointment provider. Sign off status: Pending * Provider: Ankit Carpio DPM Date: 0 09/30/2024 Generated for Roly varghese/Samantha/Rula on: 0 12/26/2024 10:49 AM EDT
--- NOTE | 2024-12-26 10:10 | CA_ITS ---
Transthoracic Echocardiogram Patient (Last, First, Middle): Edna Bobby, Gender: F Date of : 1960 Age: 64 Procedure Date: 12/26/2024 Procedure Type: Transthoracic Echocardiogram Location: OP Height: 157. cm Weight: 86.18 kg BSA: 1.87 m2 Heart Rate: bpm BP: 130 / 65 mmHg Layer Up: DONNY Referring MD: Toney Hernandez MD Symptoms: I71.21 - Aneurysm of the ascending aorta, without rupture Study Quality: Adequate ECG Rhythm: Sinus Conclusions: - The left ventricular systolic function is normal. The calculated ejection fraction is 67% by biplane method. - There is mild aortic valve regurgitation. - There is moderate dilatation of the ascending aorta measuring 4.60 cm. Findings Left Ventricle Normal left ventricular cavity size. There is normal left ventricular wall thickness. The left ventricular systolic function is normal. The calculated ejection fraction is 67% by biplane method. There is no evidence of regional wall motion abnormalities. Diastolic function is normal for age. Right Ventricle Normal right ventricular cavity size and systolic function. Atria Both atria are normal in size. Aortic Valve There is a normal trileaflet aortic valve. There is no aortic valve stenosis. There is mild aortic valve regurgitation. Mitral Valve The mitral valve appears normal. There is mild mitral valve regurgitation. There is no mitral valve stenosis. Pulmonic Valve The pulmonic valve is likely normal. Tricuspid Valve Normal tricuspid valve structure. There is trace tricuspid valve regurgitation. There is no evidence of pulmonary hypertension. Great Vessels There is moderate dilatation of the ascending aorta measuring 4.60 cm. Venous The inferior vena cava is normal in size and collapses greater than 50% with inspiration. Pericardium/Pleural There is no evidence of pericardial effusion. Prior Study Comparison No significant change compared to prior study dated: 11/20/2023. Measurements 2D Linear Measurements IVSd: 0.94 0.6-0.9/0.6-1.0 cm LVIDd: 5.07 3.9-5.3/4.2-5.9 cm LVIDd Index: 2.71 2.4-3.2/2.2-3.1 cm/m2 LVIDs: 2.73 2.0-3.6 cm LVPWd: 1.04 0.7-1.1 cm LA Diam: 3.10 2.7-3.8/3.0-4.0 cm LAIDs Index: 1.66 1.5-2.3 cm/m2 LV Mass: 228.57 67-162/88-224 g LV Mass Index: 122.23 43-95/49-115 g/m2 LVOT Diam: 1.90 3.0+(-)1.3 cm 2D Systolic Function EF 4C: 66.40 >55% EF 2C: 68.80 >55% EF BiP: 67.20 >55% Mitral Valve MV Pk E: 0.97 MV PK A: 0.92 MV Decel Time: 163.00 E/A: 1.10 E'Lateral: 10.60 E'Medial: 5.87 E/E' Med: 16.50 E/E' Lat: 9.20 PHT: 48.00 MVA PHT: 4.58 Decel [place]: 5.96 Aortic Valve AoV Pk Ever: 1.74 AoV Mn Ever: 1.19 AoV VTI: 0.39 AoV Pk Grad: 12.00 Aov Mn Grad: 7.00 JORGE Cont.VTI: 2.20 AI Pk Ever: 4.08 AI [place]: 1.99 LVOT LVOT Pk Ever: 1.27 LVOT Mn Ever: 0.88 LVOT VTI: 0.30 LVOT Pk Grad: 6.00 LVOT Mn Grad: 4.00 LVOT Diam: 1.90 LVOT Area: 2.84 Diastolic Function MV Pk E: 0.97 MV Pk A: 0.92 E/A: 1.10 E'Medial: 5.87 E/E' Med: 16.50 E' Laterial: 10.60 E/E' Lat: 9.20 Right Ventricle TAPSE (mm): 30.90 TVS' Ever: 15.90 Tricuspid Valve TR Pk Ever: 2.34 TR Pk Grad: 22.00 RA Press: 3.00 RVSP: 25.00 Great Vessels Aorta Sinus of Valsalva: 3.60 2.0-3.5 cm Ao Asc: 4.60 2.1-3.4 cm Ao Arch: 2.90 Pulmonary Veins Pulm Vein S/D 1.20 Pulmonary Valve PV Pk Ever: 1.09 Peak PV Grad: 5.00 Updated in Other Vendor System with Status of Final Marcos Villanueva MD electronically signed on 12/27/2024 2:13:22 PM with status of Final
--- OUTSIDE RECORDS SUMMARY | 2024-12-26 10:50 | XMS_ITS | Patient Health Record ---
Author Organization [facility] Address [address] [place] [phone] Care Team Providers Care Policewoman Name Role Phone Jason HOLLINS, Giuseppe Primary Care Provider Matthew Harrison Jr Unavailable Allergies Allergen (clinical drug ingredient) Drug/Non Drug [...] Problem Status W/U Status Risk Notes Problem [id number] Colon cancer screening (Z12.11) Active confirmed Problem [id number] Encounter for ot her preprocedural examination (Z01.818) Active confirmed Problem [id number] Gastroesophageal reflux disease, esophagitis presence not specified (K21.9) Active confirmed Vital Signs Blood pressure diastolic 11 mm Hg 07/24/2024 Height 63.5 in 07/24/2024 Blood pressure systolic 111 mm Hg 07/24/2024 Weight 190 lbs 07/24/2024 BMI 33.13 kg/m2 07/24/2024 Encounters Encounter Location Date Provider Diagnosis [facility] Outpatient [address] [place] [address] [place] [id number] 08/06/2024 Mathtew Appiah Jr Colon cancer screening Z12.11 and Family history of colon cancer Z80.0 [facility] [address] [place] [phone] 07/24/2024 Matthewavani Appiah Jr Colon cancer screening Z12.11 and Encounter for other preprocedural examination Z01.818 [facility] [address] [facility] [address] [place] [phone] 07/31/2024 Matthew Tdfrandy Leon Assessments Encounter Date [...] Insured Coverage Start Date Coverage End Date [facility] Insurance ([employer]) [address] [place] [address] [id number] NCIOLE WEINER Self - patient is the insured Medical (General) History Medical History History ICD Code degenerative joint disease nephrolithiasis Denies PR,DM,CVA,Lung disease,renal dise ase parathyroid lesions vitamin D deficiency thoracic aortic aneurysm seasonal allergies 01/2023 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
--- OUTSIDE RECORDS SUMMARY | 2024-12-26 10:50 | XMS_ITS | Encounter Summary ---
Author Organization [facility] Address [address] [place] [address] Phone Care Team Providers Care Architectural Renderer Name Role Phone Giuseppe Gomez MD Primary Care Provider [phone] Giuseppe Gomez MD Unavailable [phone] Tania Huber MD Unavailable [phone] John Cordero MD Unavailable Luis Eduardo Thompson MD Unavailable Selvin Mina MD, PhD Unavailable [phone] Wesley Stewart MD Unavailable [phone] Encounter Details Date Type Department Care Team (Late st Contact Info) Description 10/07/2024 Procedure Pass [facility] Imaging, [place] [address] [place] [address] Social History Tobacco Use Types Packs/Day Years Used Date Smoking Tobacco: Never Passive Smoke Exposure: Past Smokeless Tobacco: Never Comments:Patient's parents s moked at home. 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 Alcohol Use Standard Drinks/Week Comments Yes 0 (1 standard drink = 0.6 oz pur e alcohol) 1-2 drinks, monthly of less Child or Family Care Answer Date Record ed Do you have problems with on e of the following making it difficult for you to work, study, or receive health care? No 02/18/2024 Education Answer Date Recorded Are you interested in help w ith more adult education (for example, completing high school, GED, job training, learning the Turkish language, technical skills, or developing parenting skills)? No 02/18/2024 Are you concerned about learning? Not on file 02/18/2024 No 02/18/2024 Yes 02/18/2024 Food Answer Date Recorded Within the past 6 months we worried whether our food would run out before we got money to buy more. Never True 02/18/2024 Within the past 6 months the food we bought just didn't last and we didn't have enough money to get more. Never True Residential Stability Answer Date Recor ded What is your housing situation today? I have martha sing 02/18/2024 How many times have you move d in the past 12 months? Zero (I did not move) 02/18/2024 Paying for Meds Answer Date Recorded Do you have trouble paying for medicines? No 02/18/2024 Paying Utility Bills Answer Date Record ed Do you have trouble paying your heating or elect ricity bill? No 02/18/2024 Transportation Answer Date Recorded Has the lack of transportati on kept you from medical appointments or from getting medications? No 02/18/2024 Unemployment Answer Date Recorded Are you currently unemployed or working on a part-time or temporary basis, and looking for work? No 01/13/2022 Digital Access Answer Date Recorded No 02/18/2024 Yes 02/18/2024 Do you have reliable internet access at home? Ye s 02/18/2024 Do you have a device (e.g., phone, tablet, computer) with a working camera? Yes 02/18/2024 Intimate Partner Violence Answer Date R ecorded Are you denied basic needs s uch as food, clothing, or medical care? No 02/18/2024 In the past 12 months have y ou been in a relationship with a person who hurts, threatens, or tries to control you? No 02/18/2024 Are you denied basic needs s uch as food, clothing, or medical care? No 02/18/2024 In the past 12 months have y ou been in a relationship with a person who hurts, threatens, or tries to control you? No 02/18/2024 Comments No Sex and Gender Information Value Date Recorded Sex Assigned at Female 02/20/2023 9:12 AM EDT Legal Sex Female 9:47 PM EDT Gender Identity Female 02/20/2023 9:12 AM EDT Sexual Orientation Straight 02/20/2023 9: 12 AM EDT documented as of this encounter Plan of Treatment Upcoming Encounters Date Type Department Care Team (Late st Contact Info) Description 12/09/2024 [facility], [facility], [place] [address] [facility], Floor [address]1 [place] [address] 12/09/2024 Procedure [facility], [facility] [place] [address] [facility], Floor [address] [place] [address] 03/04/2025 1:00 PM EST Office Visit [facility] Internal Medicine [address] [place] [address] Giuseppe Gomez MD 40 [place] [address] [email or web address] 03/10/2025 12:15 PM EST Blood Draw [facility] Imaging Department, [facility], Imaging [id number] [address] [facility], [facility] [address] [place] [address] Tania Huber MD [address] [address] [email or web address] 03/10/2025 1:30 PM EST Appointment [facility] Imaging Department, [facility], [place] [address] [facility], Floor [address] [place] [address] Tania Huber MD 450 [facility] [address] [place] [phone] [email or web address] 03/10/2025 3:30 PM EST Office Visit [facility] Center for Thoracic Oncology, [facility] [address] [facility], 9th [place] [address] Tania Huber MD 450 [facility] [address] [place] [address] [email or web address] documented as of this encounter Visit Diagnoses Not on filedocumented in this encounter Additional Health Concerns Assessment Noted Time PHQ-9 Depression Total Score: 7 01/30/20 23 8:13 AM EDT PHQ-2 Depression Total Score: 0 02/18/20 24 6:37 PM EDT documented as of this encounter Care Teams Architectural Renderer Relationship Specialty Start Date End Date Giuseppe Gomez MD [address] [place] [address] PCP - General 02/15/17 Giuseppe Gomez MD [address] [place] [address] Historical LMR Provider 02/18/17 Tania Huber MD 450 [facility] [address] [place] [id number] [email or web address] 04/10/23 John Cordero MD [address] [place] [id number] 04/10/23 Luis Eduardo Thompson MD [address] [place] [address] [place] [address] Pulmonary Disease 10/30/23 Selvin Mina MD, PhD [address] [place] [address], [facility] [address] [place] [address] [email or web address] Radiation Oncology 12/03/23 Wesley Stewart MD [address] [place] [phone] [email or web address] Radiation Oncology 03/17/24 documented as of this encounter Additional Source Comments The information contained in this document represents components of the legal health record. It is not the complete legal health record.[facility]
--- OUTSIDE RECORDS SUMMARY | 2024-12-26 10:50 | XMS_ITS | Encounter Summary ---
Author Organization [facility] Address [address] [place] [address] Phone Care Team Providers Care Cargo Broker Name Role Phone Giuseppe Gomez MD Primary Care Provider [phone] Giuseppe Gomez MD Unavailable [phone] Tania Huber MD Unavailable [phone] John Cordero MD Unavailable [phone] Luis Eduardo Thompson MD Unavailable [phone] Selvin Mina MD, PhD Unavailable [phone] Wesley Stewart MD Unavailable [phone] Encounter Details Date Type Department Care Team (Late st Contact Info) Description 11/22/2023 Procedure Pass [facility] [employer] [place] [address] [place] [address] Social History Tobacco Use Types Packs/Day Years [...] work, study, or receive health care? No 11/21/2023 Education Answer Date Recorded Are you interested in help w ith more adult education (for example, completing high school, GED, job training, learning the Faroese language, technical skills, or developing parenting skills)? No 11/21/2023 Are you concerned about learning? Not on file 11/21/2023 No 11/21/2023 Yes 11/21/2023 Food Answer Date Recorded Within the past 6 months we worried whether our food would run out before we got money to buy more. Never True 11/21/2023 Within the past 6 months the food we bought just didn't last and we didn't have enough money to get more. Never True Residential Stability Answer Date Recor ded What is your housing situation today? I have martha sing 11/21/2023 How many times have you move d in the past 12 months? Zero (I did not move) 11/21/2023 Paying for Meds Answer Date Recorded Do you have trouble paying for medicines? No 11/21/2023 Paying Utility Bills Answer Date Record ed Do you have trouble paying your heating or elect ricity bill? No 11/21/2023 Transportation Answer Date Recorded Has the lack of transportati on kept you from medical appointments or from getting medications? No 11/21/2023 Unemployment Answer Date Recorded Are you currently unemployed or working on a part-time or temporary basis, and looking for work? No 01/13/2022 Digital Access Answer Date Recorded No 01/29/2023 Yes 01/29/2023 Do you have reliable internet access at home? Ye s 01/29/2023 Do you have a device (e.g., phone, tablet, computer) with a working camera? Yes 01/29/2023 Comments No Sex and Gender Information Value Date Recorded Sex Assigned at Female 02/20/2023 9:12 AM EDT Legal Sex Female 9:47 PM EDT Gender Identity Female 02/20/2023 9:12 AM EDT Sexual Orientation Straight 02/20/2023 9: 12 AM EDT documented as of this encounter Plan of Treatment Upcoming Encounters Date Type Department Care Team (Late st Contact Info) Description 12/09/2024 Procedure Pass [facility] Department, [facility], [place] [address] [facility], Floor [address] [place] [address] 12/09/2024 Procedure Pass [facility] Imaging Department, [facility], [place] [address] [facility], Floor [address] [place] [address] 03/04/2025 1:00 PM EST Office Visit [facility] Internal Medicine [address] [place] [address] Giuseppe oGmez MD [address] [place] [address] 03/10/2025 12:15 PM EST [facility], [facility], Imaging [id number] [address] [facility], Floor [address] [place] [address] Tania Huber MD [address] [address] [email or web address] 03/10/2025 1:30 PM EST [facility]ointment [facility], [facility], [place] [address] [facility], Floor [address] [place] [address] Tania Huber MD [address] [phone] [email or web address] 03/10/2025 3:30 PM EST Office Visit [facility] Center for Thoracic Oncology, [facility] [address] [facility], 9th [place] [address] Tania Huber MD [address] [place] [phone] [email or web address] documented as of this encounter Visit Diagnoses Not on filedocumented in this encounter Additional Health Concerns Assessment Noted Time PHQ-9 Depression Total Score: 7 01/30/20 8:13 AM EDT PHQ-2 Depression Total Score: 2 01/30/20 8:14 AM EDT documented as of this encounter Care Teams Cargo Broker Relationship Specialty Start Date End Date Giuseppe Gomez MD [address] [place] [address] [email or web address] PCP - General 02/15/17 Giuseppe Gomez MD 40 [place] [address] [email or web address] Historical LMR Provider 02/18/17 Tania Huber MD 450 [facility] [address] [place] [address] [email or web address] 04/10/23 John Cordero MD [address] [place] [address] 04/10/23 Luis Eduardo Thompson MD [address] [place] [address] [place] [address] Pulmonary Disease 10/30/23 Selvin Mina MD, PhD 450 [facility], HIM [address] [place] [address] [email or web address] Radiation Oncology 12/03/23 Wesley Stewart MD 450 [place] [address] [email or web address] Oncology 03/17/24 documented as of this encounter Additional Source Comments The information contained in this document represents components of the legal health record. It is not the complete legal health record.[facility]
--- OUTSIDE RECORDS SUMMARY | 2024-12-26 10:50 | XMS_ITS | Encounter Summary ---
Author Organization [facility] Address [address] [place] [address] Phone Care Team Providers Care Customer Marketing Assistant Name Role Phone Giuseppe Gomez MD Primary Care Provider [phone] Giuseppe Gomez MD Unavailable [phone] Tania Huber MD Unavailable [phone] John Cordero MD Unavailable Luis Eduardo Thompson MD Unavailable Selvin Mina MD, PhD Unavailable [phone] Wesley Stewart MD Unavailable [phone] Encounter Details Date Type Department Care Team (Late st Contact Info) Description 06/17/2024 Procedure Pass [facility] Imaging Department, [facility] [place], [place] 450 [facility], Floor L1 [place] [address] Social History Tobacco Use Types Packs/Day Years [...] high school, GED, job training, learning the [place] language, technical skills, or developing parenting skills)? [...] your housing situation today? I have martha diana 02/18/2024 How many times have you move [...] st Contact Info) Description 12/09/2024 Procedure Pass [facility] Imaging Department, [facility], [place] 450 [facility], Floor L1 [place] [address] 12/09/2024 Procedure Pass [facility] Imaging Department, [facility], [place] [facility], [facility] L1 [place] [address] 03/04/2025 1:00 PM EST Office Visit [facility] Internal Medicine 40 [place] [address] Giuseppe Gomez MD 40 [place] [address] [email or web address] 03/10/2025 12:15 PM EST Blood Draw [facility] Imaging Department, [facility], Imaging Pnvhs-rr-Swac 450 [facility], [facility] L1 [place] [address] Tania Huber MD [address] [place] [address] [email or web address] 03/10/2025 1:30 PM EST Appointment [facility] Imaging Department, [facility], [place] 450 [facility], Floor L1 [place] [address] Tania Huber MD [address] [address] [email or web address] 03/10/2025 3:30 PM EST Office Visit [facility], [facility] [place] 450 [facility], 9th [place] [address] Tania Huber MD 450 [facility] 1240 [place] [address] [email or web address] documented as of this encounter Visit Diagnoses Not on filedocumented in this encounter Additional Health Concerns Assessment Noted Time PHQ-9 Depression Total Score: 7 01/30/20 23 8:13 AM EDT PHQ-2 Depression Total Score: 0 02/18/20 24 6:37 PM EDT documented as of this encounter Care Teams Customer Marketing Assistant Relationship Specialty Start Date End Date Giuseppe Gomez MD 40 [place] [address] [email or web address] PCP - General 02/15/17 Giuseppe Gomez MD 40 [place] [address] [email or web address] Historical LMR Provider 02/18/17 Tania Huber MD 450 [facility] [address] [place] [address] [email or web address] 04/10/23 John Cordero MD [address] [place] [address] [id number] 04/10/23 Luis Eduardo Thompson MD [address] [place] [address] [place] [id number] Pulmonary Disease 10/30/23 Selvin Mina MD, PhD [address] [place] [address], [facility] 350 [place] [address] [email or web address] Radiation Oncology 12/03/23 Wesley Stewart MD [address] [place] [address] [email or web address] Radiation Oncology 03/17/24 documented as of this encounter Additional Source Comments The information contained in this document represents components of the legal health record. It is not the complete legal health record.[facility]
--- OUTSIDE RECORDS SUMMARY | 2024-12-26 10:50 | XMS_ITS | Encounter Summary ---
Author Organization [facility] Address [address] [employer] [facility] [address] [place] [address] Phone Care Team Providers Care Chair Inspector Name Role Phone Giuseppe Gomez MD Primary Care Provider [phone] Giuseppe Gomez MD Unavailable [phone] Tania Huber MD Unavailable [phone] John Cordero MD Unavailable Luis Eduardo Thompson MD Unavailable Selvin Mina MD, PhD Unavailable [phone] Wesley Stewart MD Unavailable [phone] Reason for Visit * Reason Onset Date Comments Referral 10/25/2023 [facility] [phone] [facility] requesting a referral for pt Encounter Details Date Type Department Care Team (Late st Contact Info) Description 10/25/2023 Telephone [id number] Internal Medicine 40 [place], [place] [phone] Giuseppe Gomez MD 40 [place], [place] [id number] [email or web address] Referral (Nat [facility] [place] [phone] is requesting a referral for pt ) Social History Tobacco Use Types Packs/Day Years [...] to work, study, or receive health care? Family care (i.e. spouse, parents, other family) 01/29/2023 Education Answer Date Recorded Are you interested in help w ith more adult education (for example, completing high school, GED, job training, learning the Ivorian language, technical skills, or developing parenting skills)? No 01/29/2023 Are you concerned about learning? Not on file 01/29/2023 No 01/29/2023 Yes 01/29/2023 Food Answer Date Recorded Within the past 6 months we worried whether our food would run out before we got money to buy more. Never True 01/29/2023 Within the past 6 months the food we bought just didn't last and we didn't have enough money to get more. Never True Residential Stability Answer Date Recor ded What is your housing situation today? I have martha diana 01/29/2023 How many times have you move d in the past 12 months? Zero (I did not move) 01/29/2023 Paying for Meds Answer Date Recorded Do you have trouble paying for medicines? No 01/29/2023 Paying Utility Bills Answer Date Record ed Do you have trouble paying your heating or elect ricity bill? No 01/29/2023 Transportation Answer Date Recorded Has the lack of transportati on kept you from medical appointments or from getting medications? No 01/29/2023 Unemployment Answer Date Recorded Are you currently [...] AM EDT documented as of this encounter Progress Notes * Nikki Marquez RN - 11/08/2023 2:30 PM EDT Spoke to pt re: labs. States she got new insurance. She did see someone at [facility] on 10/29. Theyshould send everything over. States she had some good news re: lung cancer. They are thinking of doing some radiation. She is waiting to hear from radiology oncology. She would like Dr Dominguez to be update when they return. She is appreciative of call. * Miguel Dior - 10/26/2023 1:05 PM EDT LVM asking patient to call back. * Giuseppe Gomez MD - 10/25/2023 7:24 PM EDT Call patient changing insurance 10/28? Does she want us to wait until then to send referral. * Elton Giraldo - 10/25/2023 4:42 PM EDT Referral Request 1. Name of the office where the patient has been seen/requests to be seen: [facility] 2. Reason for referral/specialist appointment and the diagnosis code: C34.90 2A. Have you seen this provider before for this same problem? YES/NO: yes 2B. If this is a new problem, is your PCP aware of your symptoms? YES/NO: yes 3. Date of appointment(s):10/30/23 4. Name of specialist provider: Dr. Tania Huber 5. NPI number to enter for referral authorization (enter n/a if not available): [id number] 6. Number of visits requested for referral: 6 7. Fax number of specialist office to send referral authorization: [phone] [facility] Call Center CSS Agent (Please do not reply to this user, as this inbox is not monitored.) Thank you documented in this encounter Plan of Treatment Upcoming Encounters Date Type Department Care Team (Late st Contact Info) Description 12/09/2024 Procedure Pass [facility] Imaging Department, [facility], [place] 450 [facility], Floor L1 [place] [address] 12/09/2024 Procedure Pass [facility] Imaging Department, [facility], [place] [address] [facility], Floor [address]1 [place] [address] 03/04/2025 1:00 PM EST Office Visit [facility] Internal Medicine 40 [place] [address] Giuseppe Gomez MD 40 [place] [address] [email or web address] 03/10/2025 12:15 PM EST Blood Draw [facility] Imaging Department, [facility], Imaging Gzzem-fe-Nqpx [address] [facility], [facility] L1 [place] [address] Tania Huber MD 450 [facility] 1240 [place] [address] [email or web address] 03/10/2025 1:30 PM EST Appointment [facility] Imaging Department, [facility], [place] 450 [facility], Floor L1 [place] [address] Tania Huber MD 450 [address] [facility] [place] [address] [email or web address] 03/10/2025 3:30 PM EST Office Visit [facility], [facility] [place] [address] [facility], 9th [place] [address] Tania Huber MD 450 [facility] [address] [place] [address] [email or web address]@[email or web address] documented as of this encounter Visit Diagnoses Diagnosis Malignant neoplasm of unspecified part of unspecified bronchus or lung- Primary documented in this encounter Additional Health Concerns Assessment Noted Time PHQ-9 Depression Total Score: 7 01/30/20 8:13 AM EDT PHQ-2 Depression Total Score: 2 01/30/20 8:14 AM EDT documented as of this encounter Care Teams Chair Inspector Relationship Specialty Start Date End Date Giuseppe Gomez MD 40 [place] [address] [email or web address] PCP - General 02/15/17 Giuseppe Gomez MD 40 [place] [address] [email or web address] Historical LMR Provider 02/18/17 Tania Huber MD 450 [facility] [address] [place] [address] [email or web address] Medical Oncology 04/10/23 John Cordero MD [address] [place] [address] 04/10/23 Luis Eduardo Thompson MD [address] [place] [address] [place] [address] Pulmonary Disease 10/30/23 Selvin Mina MD, PhD [address] [place] [address] [email or web address] Rad[facility] Oncology 12/03/23 Wesley Stewart MD [address] [place] [address] [email or web address] Radiation Oncology 03/17/24 documented as of this encounter Additional Source Comments The information contained in this document represents components of the legal health record. It is not the complete legal health record.[facility]
--- OUTSIDE RECORDS SUMMARY | 2024-12-26 10:50 | XMS_ITS | Patient Health Record ---
Author Organization [facility] dip[facility] Address [address] [facility] [place] [address] Care Team Providers Care Program Schedule Clerk Name Role Phone Giuseppe Gomez MD Primary Care Provider Unavaila gian Black, Susy Unavailable [phone] Allergies Allergen (clinical drug ingredient) Drug/Non Drug [...] 1 capsule Orally thr ee times a day; Duration: 10 days 08/18/2024 Active Vitamin D 25 MCG (1000 UT) 1 tablet Oral ly Once a day; Duration: 30 day(s) Active Atorvastatin Calcium Active Motrin Unknown Lisinopril Active ibuprofen 1 tab Oral; Duration : 14 days PRN Unknown Cetirizine HCl Activ e Physical Therapy . . DX Plantar fascial fibromatosis - M72.2 right foot 2-3x/week 09/16/2020 Unknown CoQ-10 Active Physical Therapy 3-4x per week for 3- 4 weeks 09/16/2020 Unknown Ketoconazole Active Walking Boot/Pneumatic As directed Wear Daily; Duration: Until further notice 01/18/2021 Unknown Xgeva Active ZyrTEC Unknown Acetaminophen Active Multivitamin Active Work Note . . . Medically needed to wear cast boot to right foot until further notice 01/18/2021 Unknow n Excedrin Extra Strength 250-250-65 MG 2 tablets Orally Once a day; Duration: 30 day(s) PRN Active Immunizations Vaccine Route Administration Date Status Comme nts Influenza Unknown 03/15/2021 Administered COVID-19 Pfizer BioNTech Vaccine Unknown 02/09/2021 Administered 1st 04/21/2020 2nd 05/12/2020 Social History Tobacco Use: Social History Observation [...] Ulcer of toe of right foot (disorder) ([id number]) Skin ulcer of toe of right foot, limited to breakdown of skin (L97.511) Active confirmed Response to treatment Nonapplicable Vital Signs Blood pressure diastolic 80 mm Hg 09/01/2024 Height 5ft2in in 09/01/2024 Blood pressure systolic 123 mm Hg 09/01/2024 Weight 185 lbs 09/01/2024 BMI 33.83 kg/m2 09/01/2024 Procedures Procedure Date Ordered Date Performed [place] [address]- Debride <25 sq cm 09/01/2024 N/A Encounters Encounter Location Date Provider Diagnosis [facility] [address] 08/18/2024 Susy Black Abscess of toe, right L02.611 ; Ingrown nail L60.0 ; Pain in left toe(s) M79.675 ; Pain in right toe(s) M79.674 and Cellulitis of right toe L03.[address] [facility] [address] 09/01/2024 Susy Black Skin ulcer of toe of right foot, limited to breakdown of skin L97.[facility] [address] 08/12/2024 Susy Black [facility] [address] 08/20/2024 Susy Carpio Assessments Encounter Date Diagnosis (ICD Code) Assessment [...] X ray : Foot, right 3V 01/18/2021 12865- Debride <25 sq cm 09/01/2024 16862,Q0204-HAK TENDON SHEATH/LIGAMENT 0 08/31/2020 Next Appt Details Provider Name:Susy Carpio , 01/01/2025 10:15:00 AM, [address] [place], [address], Insurance Providers Payer Name Payer Address Payer Phone Subscriber Number Group Number Insured Name Patient Relationship to Insured Coverage Start Date Coverage End Date [facility] [address] [place] [address] [phone] [id number] Migue Clark Spouse - patient is the spouse of the insured Medical (General) History Medical History History ICD Code psoriasis/eczema mumps measles headaches/migraines chicken pox Reflux ( GERD) chronic sinusitis thyroid Cancer covid-19 High Blood Pressure Lung disease sinusitis Chicken pox Surgical History Surgery Date(Month/Year) Dental Implant colonoscopy x 4 endoscopy x 4 bronchoscopy breast biopsy
--- OUTSIDE RECORDS SUMMARY | 2024-12-26 10:50 | XMS_ITS | Encounter Summary ---
Author Organization [facility] Address [address] [place] [address] Phone Care Team Providers Care Chemical Milling Processor Name Role Phone Giuseppe Gomez MD Primary Care Provider [phone] Giuseppe Gomez MD Unavailable [phone] Tania Huber MD Unavailable [phone] John Cordero MD Unavailable Luis Eduardo Thompson MD Unavailable [phone] Selvin Mina MD, PhD Unavailable [phone] Wesley Stewart MD Unavailable [phone] Encounter Details Date Type Department Care Team (Late st Contact Info) Description 10/07/2024 Procedure Pass [facility] Imaging, [place] [address] [place] [address] Social History Tobacco Use Types Packs/Day Years [...] high school, GED, job training, learning the [place] language, technical skills, or developing parenting skills)? [...] Info) Description 12/09/2024 Procedure Pass [facility] Imaging Department, [employer] [facility], [place] 450 [facility], Floor L1 [place] [address] 12/09/2024 Procedure Pass [facility] Imaging Department, [employer] [facility], [place] 450 [facility], Floor L1 [place] [address] 03/04/2025 1:00 PM EST Office Visit [facility] Internal Medicine 40 [place] [address] Giuseppe Gomez MD 40 [place] [address] [email or web address] 03/10/2025 12:15 PM EST Blood Draw [facility] Imaging Department, [employer], Imaging Mcjgy-cx-Rwlf 450 [facility], [facility] L1 [place] [address] Tania Huber MD [address] [address] [email or web address]@[email or web address] 03/10/2025 1:30 PM EST Appointment [facility] Imaging Department, [employer], [place] 450 [facility], Floor L1 [place] [address] Tania Huber MD 450 [facility] [address] [place] [address] [email or web address]@[facility] 03/10/2025 3:30 PM EST Office Visit [facility] for Thoracic Oncology, [facility] [place] 450 [facility], 9th [place] [address] Tania Huber MD 450 [facility] 1240 [place] [address] [email or web address] documented as of this encounter Visit Diagnoses Not on filedocumented in this encounter Additional Health Concerns Assessment Noted Time PHQ-9 Depression Total Score: 7 01/30/20 23 8:13 AM EDT PHQ-2 Depression Total Score: 0 02/18/20 24 6:37 PM EDT documented as of this encounter Care Teams Chemical Milling Processor Relationship Specialty Start Date End Date Giuseppe Gomez MD 40 [place] [address] PCP - General 02/15/17 Giuseppe Gomez MD 40 [place] [address] Historical LMR Provider 02/18/17 Tania Huber MD 450 [facility] [address] [place] [address] [email or web address] Medical Oncology 04/10/23 John Cordero MD [address] [place] [address] [id number] 04/10/23 Luis Eduardo Thompson MD [address] [place] [address] [place] [address] Pulmonary Disease 10/30/23 Selvin Mina MD, PhD [address] [place] [address], [facility] 350 [place] [address] [email or web address] Radiation Oncology 12/03/23 Wesley Stewart MD [address] [place] [address] [email or web address] Radiation Oncology 03/17/24 documented as of this encounter Additional Source Comments The information contained in this document represents components of the legal health record. It is not the complete legal health record.[facility]
--- OUTSIDE RECORDS SUMMARY | 2024-12-26 10:50 | XMS_ITS | Encounter Summary ---
Author Organization [facility] Address [address] [place] [address] Phone Care Team Providers Care Summer Intern Name Role Phone Giuseppe Gomez MD Primary Care Provider [phone] Giuseppe Gomez MD Unavailable [phone] Tania Huber MD Unavailable [phone] John Cordero MD Unavailable Luis Eduardo Thompson MD Unavailable Selvin Mina MD, PhD Unavailable [phone] Wesley Stewart MD Unavailable [phone] Encounter Details Date Type Department Care Team (Late st Contact Info) Description 10/07/2024 Procedure Pass [facility], [facility] [place], MRI [address] [address] Social History Tobacco Use Types Packs/Day Years [...] high school, GED, job training, learning the Guatemalan language, technical skills, or developing parenting skills)? [...] st Contact Info) Description 12/09/2024 Procedure Pass [facility] Imaging Department, [facility], [place] 450 [facility], Floor L1 [place] [address] 12/09/2024 Procedure Pass [facility] Imaging Department, [facility], [place] 450 [facility], [facility] L1 [place] [address] 03/04/2025 1:00 PM EST Office Visit [facility] Internal Medicine 40 [place] [address] Giuseppe Gomez MD 40 [place] [address] [email or web address] 03/10/2025 12:15 PM EST Blood Draw [facility] Imaging Department, [facility], Imaging Qzuoc-gf-Zhzq 450 [facility], [facility] L1 [place] [address] Tania Huber MD [address] [address] [email or web address] 03/10/2025 1:30 PM EST Appointment [facility] Imaging Department, [facility], [place] 450 [facility], [facility] L1 [place] [address] Tania Huber MD [address] [address] [email or web address] 03/10/2025 3:30 PM EST Office Visit [facility] for [facility]acic Oncology, [facility] [place] 450 [facility], 9th [place] [address] Tania Huber MD 450 [facility] 1240 [place] [address] [email or web address] documented as of this encounter Visit Diagnoses Not on filedocumented in this encounter Additional Health Concerns Assessment Noted Time PHQ-9 Depression Total Score: 7 01/30/20 8:13 AM EDT PHQ-2 Depression Total Score: 0 02/18/20 24 6:37 PM EDT documented as of this encounter Care Teams Summer Intern Relationship Specialty Start Date End Date Giuseppe Gomez MD 40 [place] [address] [email or web address] PCP - General 02/15/17 Giuseppe Gomez MD 40 [place] [address] [email or web address] Historical LMR Provider 02/18/17 Tania Huber MD 450 [facility] 1240 [place] [address] [email or web address] Medical Oncology 04/10/23 John Cordero MD [address] [place] [address] [id number] 04/10/23 Luis Eduardo Thompson MD [address] [place] [address] [address] [place] [id number] Pulmonary Disease 10/30/23 Selvin Mina MD, PhD [address] [place] [address], [facility] 350 [place] [address] [email or web address] Radiation Oncology 12/03/23 Wesley Stweart MD [address] [place] [address] [email or web address] Radiation Oncology 03/17/24 documented as of this encounter Additional Source Comments The information contained in this document represents components of the legal health record. It is not the complete legal health record.[facility]
--- OUTSIDE RECORDS SUMMARY | 2024-12-26 10:50 | XMS_ITS | Clinical Summary ---
Author Organization [facility] Address [address] [place] [address] Care Team Providers Care Autocad Technician Name Role Phone Giuseppe Gomez MD Primary Care Provider [phone] Allergies Active Allergy Reactions Criticality Noted Date [...] by mouth daily. 3 Active nystatin (MYCOSTATIN) 537206 UNIT/GM cream Apply topically. 3 Active ondansetron [...] 65 03/13/2023 3:03 PM EST Temperature 36.7 C (98.1 F) 03/13/2023 3:03 PM EST Respiratory Rate 18 03/13/2023 3:03 PM EST [...] 60-74 years 1-dose series) 2020 COVID-19 Vaccine ( season) 2023 02/09/2021, 05/12/2020, 04/21/2020 Influenza Vaccine 11/28/2024 03/05/2023, , 03/17/2021, Additional history exists Hepatitis B Vaccines Aged Out No long er eligible based on patient's age to complete this topic Insurance [facility] Care Teams Autocad Technician Relationship Specialty Start Date End Date Giuseppe Gomez MD 84 [place] [address] PCP - General Internal Medicine 03/09/23
--- OUTSIDE RECORDS SUMMARY | 2024-12-26 10:50 | XMS_ITS | Encounter Summary ---
Author Organization [facility] Address [address] [place] [address] Care Team Providers Care Economic Manager Name Role Phone Giuseppe Gomez MD Primary Care Provider [phone] Encounter Details Date Type Department Care Team (Late st Contact Info) Description 03/13/2023 Scanned Document [facility] [place] [facility] at [address] [id number] Wesley Penaloza MD [address] [place] [address] Social History Tobacco Use Types Packs/Day Years [...] on filedocumented in this encounter Care Teams Economic Manager Relationship Specialty Start Date End Date Giuseppe Gomez MD [address] [place], [place] [id number] [id number] PCP - General Internal Medicine 03/09/23 documented as of this encounter
--- OUTSIDE RECORDS SUMMARY | 2024-12-26 10:50 | XMS_ITS | Clinical Summary ---
Author Organization [facility] Address [facility] [address] [place] [address] Phone Care Team Providers Care Nut Grinder Name Role Phone Giuseppe Gomez MD Primary Care Provider [phone] Giuseppe Gomez MD Unavailable [phone] Tania Huber MD Unavailable [phone] John Cordero MD Unavailable Luis Eduardo Thompson MD Unavailable [phone] Selvin Mina MD, PhD Unavailable [phone] Wesley Stewart MD Unavailable [phone] Allergies Active Allergy Reactions Criticality Noted Date Comments Cat Dander Sneezing 03/05/2023 Dog Dander 03/05/2023 Nasal congestion Medications cetirizine (ZYRTEC) 10 MG tablet Take 1 tablet by mouth daily. Active cholecalciferol, vitamin D3, 25 mcg (1,000 unit) capsule Take 1 capsule by mouth daily. Active hydrocortisone 0.5 % cream Apply topically 2 (two) times a day. PRN for dry skin Active mometasone (ELOCON) 0.1 % topical solution APPLY TO SCALP TWICE DAILY FOR TWO WEEKS BREAK FOR ONE WEEK THEN REPEAT NEEDED FOR ITCHING 023 Active nystatin cream Apply topically 2 (two) times a day. APPLY TO AFFECTED AREA as needed 023 Active triamcinolone acetonide 0.1 % cream APPLY TWICE DAILY TO AFFECTED AREAS ON THE NECK FOR ONE WEEK, BREAK ONE WEEK, REPEAT NEEDED. 023 Active ketoconazole (NIZORAL) 2 % shampoo Apply 1 Application topically once a week. 023 Active MAGNESIUM ORAL Take 400 mg by mouth 3 (three) times a week. Active ondansetron (ZOFRAN-ODT) 8 MG disintegrating tablet Take 8 mg by mouth as needed. 023 Active TAGRISSO 80 mg tablet Take 80 mg by mouth daily. Resumed on 02/08/24 023 Active denosumab (XGEVA) 120 mg/1.7 mL (70 mg/mL) Soln Inject 120 mg under the skin every 30 (thirty) days. From [facility] Active coenzyme Q10 300 mg Cap Take 300 mg by mouth daily. Active lisinopril (PRINIVIL,ZESTRIL) 10 MG tabletIndications:Benig n essential hypertension take 1 tablet by mouth every day 90 tablet 3 024 Active acetaminophen (TYLENOL) 500 MG tablet Take 1,000 mg by mouth as needed. Active atorvastatin (LIPITOR) 10 MG tabletIndications:Pure hypercholesterolemia TAKE 1 TABLET BY MOUTH EVERY DAY 90 tablet 3 025 Active Active Problems Problem Noted Date Diagnosed Date Ascending aortic aneurysm 01/17/2024 Overview (01/17/2024): Fol with [facility] card Dr. Toney Hernandez- Last OV 12/11/23 6m f/u ECHO aristeo 4.7cm, annual f/u advised repair size will be 5.5cm- he enc her kids to be screened- ( her sister also has this) cont HTN and avoid sudden strenuous isometric exercise EGFR-related lung cancer 03/16/2023 Overview (01/02/2024): Fol with oncology [facility] OV 12/03/23 Dr. Cordero she is going to [place] for radiation and getting denosumaab next dose 01/02/24 r/t 1 month Class 2 severe obesity with body mass index (BMI) of 35 to 39.9 with serious comorbidity 01/29/2023 H/O Hernandez thyroiditis 08/23/2017 Hypercalcemia 08/23/2017 Hyperlipidemia 08/23/2017 Hyperparathyroidism 08/23/2017 Hypothyroid 08/23/2017 Microscopic hematuria 08/23/2017 Pure hypercholesterolemia 08/23/2017 Routine medical exam 08/23/2017 Vitamin D deficiency 08/23/2017 Encounters Date Type Department Care Team Description 12/09/2024 3:00 PM EDT Office Visit [facility], [facility] [address]th [place] [address] Tania Huber MD EGFR-related lung cancer (Primary Dx) 12/09/2024 12:40 PM EDT - 12/09/2024 11:59 PM EDT Hospital Encounter [facility] Imaging Department, [facility], MRI [address] [place] [address] Tania Huber MD Discharge Disposition: Home or Self Care 12/09/2024 9:55 AM EDT - 12/09/2024 12:39 PM EDT Hospital Encounter [facility] CT Imaging, [place] [address] [place] [address] Tania Huber MD Discharge Disposition: Home or Self Care 11/02/2024 Refill [facility] [address] [place] [address] Giuseppe Gomez MD Medication Refill 10/10/2024 Orders Only [facility], [facility] [address]th [place] [address] Tania Huber MD EGFR-related lung cancer (Primary Dx) 10/07/2024 2:00 PM EDT - 10/07/2024 11:59 PM EDT Hospital Encounter [facility] Department of Radiation Oncology [address] [facility], Floor [address] [place] [address] Wesley Stewart MD Discharge Disposition: Home or Self Care 10/07/2024 1:30 PM EDT [facility] Visit [facility], [facility] [address], [address] [place] [address] Tania Huber MD EGFR-related lung cancer (Primary Dx) 10/07/2024 10:07 AM EDT - 10/07/2024 1:59 PM EDT Hospital Encounter [facility] Imaging Department, [facility], CT [address] [facility], [address] [place] [address] Tania Huber MD Discharge Disposition: Home or Self Care 10/07/2024 Procedure Pass [facility] Imaging Department, [facility], MRI [address] [facility] [address] [place] [address] 10/07/2024 Procedure Pass [facility] CT Imaging, [place] [address] [place] [address] 10/07/2024 Procedure Pass [facility] CT Imaging, [place] [address] [place] [address] 10/07/2024 Ancillary Orders [facility] OUTSIDE IMG [address] [place] [address] Tania Huber MD 10/06/2024 Orders Only [facility] [address] [place] [address] ProviderJc MD 10/03/2024 Ancillary Procedure [facility] OUTSIDE IMG [address] [place] [address] Tania Huber MD 06/17/2024 Procedure Pass [facility] Imaging [facility], [facility], CT [address] [facility], [facility] [address] [place] [address] 06/17/2024 Procedure Pass [facility] Imaging Department, [facility], CT [address] [facility], [facility] [address] [place] [address] from Last 3 Months Immunizations Immunization Administration Dates Next Due COVID-19 (Pre-02/19) Pfizer Vaccine, mRNA, PF 05/12/2020,04/21/2020 INFLUENZA, SPLIT VIRUS, TRIVALENT PF 02/19/2024 INFLUENZA, SPLIT VIRUS, TRIV ALENT W/ PRESERVATIVE IM 02/25/2016,01/29/2012 Influenza Quadrivalent Prese rvative Free IM 03/05/2023,02/09/2022,03/17/2021,2019,02/05/2019,02/15/2018 Influenza Quadrivalent w/ Preservative IM 05/09/2017 Influenza, Unspecified Formulation 01/28/2018 Td (adult) 5 Lf Tetanus Toxo id, PF, Adsorbed 09/28/2001 Tdap 03/24/2019,04/30/2009 Family History Medical History Relation Comments Colon cancer Father Breast cancer Mother Thyroid disease Mother Breast cancer Sister 1 Thyroid disease Sister 2 Relation Status Comments Father (Age 66) Mother Alive Sister 1 Alive Sister 2 Alive Sister 3 Alive Social History Tobacco Use Types Packs/Day Years Used Date Smoking Tobacco: Never Passive Smoke Exposure: Past Smokeless Tobacco: Never Tobacco Cessation:Counseling Given: Not Answered Comments:Patient's parents smoked at home. Played music during college and [...] high school, GED, job training, learning the Tajik language, technical skills, or developing parenting skills)? [...] Orientation Straight 02/20/2023 9: 12 AM EDT Last Filed Vital Signs Vital Sign Reading Time Taken Comments Blood Pressure 114/55 12/09/2024 2:49 PM EDT Pulse 81 12/09/2024 2:49 PM EDT Temperature 36.5 C (97.7 F) 12/09/2024 2:49 PM EDT Respiratory Rate 16 12/09/2024 2:49 PM EDT Oxygen Saturation 96% 12/09/2024 2:49 PM EDT Inhaled Oxygen Concentration - - Weight 87.3 kg (192 lb 7.4 oz) 12/09/2024 2:49 P M EDT Height 157.3 cm (5' 1.93 ) 08/26/2024 8:54 AM ED T Body Mass Index 35.28 08/26/2024 8:54 AM EDT Plan of Treatment Upcoming Encounters Date Type Department Care Team (Late st Contact Info) Description 12/09/[address] [facility] Imaging Department, [facility], CT [address], [address] [place] [address] 12/09/[address] [facility] Imaging Department, [facility], CT [address], [address] [place] [address] 03/04/2025 1:00 PM EST Office Visit [facility] [address] [place] [address] Giuseppe Gomez MD [address] [place] [address] [email or web address] 03/10/2025 12:15 [address] EST Blood [address] [facility] Imaging Department, [facility], Imaging [id number] [address] [facility], [address] [place] [address] Tania Huber MD [address] [address] [email or web address] 03/10/2025 1:[address] [facility] Imaging Department, [facility], CT [address] [facility], [address] [place] [address] Tania Huber MD [address] [place] [email or web address] 03/10/2025 3:30 PM EST [facility], [facility] [address] [facility], [address]th [place] [address] Tania Huber MD [address] [place] [address] [email or web address] Health Maintenance Due Date Last Done Comments HIV ONE-TIME SCREENING (18-65 YEARS) 1978 PNEUMOCOCCAL VACCINES (50+ years) (1 of 2 - PCV) 12/13/1979 ZOSTER VACCINES (1 of 2) 12/13/1979 COLOGUARD 2005 FIT TEST 2005 FOBT 2005 SIGMOIDOSCOPY 2005 VIRTUAL COLONOSCOPY 2005 RSV VACCINE (1 - Risk 60-74 years 1-dose series) 2020 PAP SMEAR 07/16/2023 07/15/2020, 06/28, 02/02/2016 DEPRESSION SCREENING 02/17/2025 02/18/2024, 01/30/20 23 BLOOD PRESSURE 06/11/2025 12/09/2024 CREATININE LEVEL 12/09/2025 12/09/2024, 04/2023, 11/05/2023, Additional history exists LIPID PANEL 12/09/2025 12/09/2024, 0711/2023, 11/05/2023, Additional history exists POTASSIUM LEVEL 12/09/2025 12/09/2024, 100 04/2023, 11/05/2023, Additional history exists MAMMOGRAM 10/03/2026 10/03/2024, 06/28, 07/08/2022, Additional history exists SCREENING FOR DIABETES 12/10/2027 , 11/05/2023, 02/26/2018 Adult Td,Tdap Booster 03/24/2029 03/24/2019 , 04/30/2009, 09/28/2001 COLONOSCOPY 07/28/2034 07/28/2024, 06/29, 06/29/2014 COLORECTAL CANCER SCREENING 07/28/2034 HEPATITIS C SCREENING Completed 03/09/2020 COVID-19 VACCINE Completed 02/28/2024, , 02/24/2022, Additional history exists SMOKING STATUS SCREENING (Once After 26 Yrs) Completed 08/26/2024 HEPATITIS A VACCINES Aged Out No long er eligible based on patient's age to complete this topic HIB VACCINES Aged Out No longer eligi ble based on patient's age to complete this topic MENINGOCOCCAL VACCINES (ACWY) Aged Out No longer eligible based on patient's age to complete this topic MENINGOCOCCAL VACCINES (B) Aged Out N o longer eligible based on patient's age to complete this topic Medical Devices Not on file Procedures Procedure Name Priority Date/Time Associated Diagnosis Comments MRI BRAIN WITH AND WITHOUT CONTRAST Routine 12/09/2024 1:41 PM EDT EGFR-related lung cancer COMPREHENSIVE METABOLIC PANEL Routine 12/09/2024 10:39 AM EDT EGFR-related lung cancer HC BLOOD COUNT COMPLETE AUTO&AUTO DIFRNTL WBC Routine 12/09/2024 10:39 AM EDT EGFR-related lung cancer LIPID PANEL Routine 12/09/2024 10:39 AM EDT Pure hypercholesterolemia CT ABDOMEN/PELVIS WITH CONTRAST Routine 12/09/2024 10:15 AM EDT EGFR-related lung cancer CT CHEST WITH CONTRAST Routine 12/09/2024 10:15 AM EDT EGFR-related lung cancer CT ABDOMEN/PELVIS WITH CONTRAST Routine 10/07/2024 10:39 AM EDT EGFR-related lung cancer CT CHEST WITH CONTRAST Routine 10/07/2024 10:39 AM EDT EGFR-related lung cancer OUTSIDE MR BREAST REPORT ONLY Routine 10/03/2024 9:29 AM EDT BI MRI BREAST OUTSIDE (NO INTERPRETATION) Routine 10/03/2024 12:00 AM EDT HM COLONOSCOPY FOR RESULT ENTRY ONLY Routine 07/28/2024 OUTSIDE GLUCOSE FASTING Routine 11/05/2023 HM PAP SMEAR FOR RESULT ENTRY ONLY Routine 07/15/2020 HEPATITIS C ANTIBODY, QUALITATIVE Routine 03/09/2020 from Last 3 Months or Most Recently Relevant to Health Maintenance Results * MRI BRAIN WITH AND WITHOUT CONTRAST (12/09/2024 1:41 PM EDT) Anatomical Region Laterality Modality Head Magnetic Resonan ce Other 12/09/2024 2:11 PM EDT Impressions 12/09/2024 5:34 PM EDT No evidence of intracranial metastasis. ATTESTATION: Erik Fischer, as teaching physician have reviewed the images, if any, for this patient's exam, and if necessary, have edited the report originally created by Rashaad Connelly. Narrative 12/09/2024 5:34 PM EDT MRI BRAIN WITH AND WITHOUT CONTRAST Referring clinician's provided indication for this examination in [facility]: * Non- small cell lung cancer, metastatic, assess treatment response TECHNIQUE: MRI BRAIN WITH AND WITHOUT CONTRAST Multi-sequence, multi-planar MRI of the brain was performed before and after intravenous contrast. COMPARISON: MRI brain 12/06/2023 and 02/21/2023 FINDINGS: Brain Parenchyma: No evidence of acute infarct, mass, hemorrhage or abnormal enhancement. Minimal scattered foci of T2 hyperintensity in the white matter, likely a manifestation of chronic small vessel disease. Redemonstrated small foci of susceptibility in the right frontal lobe and left occipital lobe, likely the sequela of chronic microhemorrhage. No new foci are identified. Ventricular System and Extra-Axial Spaces: There is no evidence of midline shift or hydrocephalus. Extracranial Structures: Expected arterial flow signal is observed at the skull base. Procedure Note Erik Flynn MD - 12/09/2024 MRI BRAIN WITH AND WITHOUT CONTRAST Referring clinician's provided indication for this examination in [facility]: *Non- small cell lung cancer, metastatic, assess treatment response TECHNIQUE: MRI BRAIN WITH AND WITHOUT CONTRAST Multi-sequence, multi-planar MRI of the brain was performed before andafter intravenous contrast. COMPARISON: MRI brain 12/06/2023 and 02/21/2023 FINDINGS: Brain Parenchyma: No evidence of acute infarct, mass, hemorrhage orabnormal enhancement. Minimal scattered foci of T2 hyperintensity in thewhite matter, likely a manifestation of chronic small vessel disease.Redemonstrated small foci of susceptibility in the right frontal lobe andleft occipital lobe, likely the sequela of chronic microhemorrhage. No newfoci are identified. Ventricular System and Extra-Axial Spaces: There is no evidence of midlineshift or hydrocephalus. Extracranial Structures: Expected arterial flow signal is observed at theskull base. IMPRESSION: No evidence of intracranial metastasis. ATTESTATION: Erik Fischer, as teaching physician have reviewed the images,if any, for this patient's exam, and if necessary, have edited the reportoriginally created by Rashaad Connelly. us Tania Huber MD IMG MR HEAD/NECK Final Result * (ABNORMAL) Comprehensive metabolic panel (12/09/2024 10:39 AM EDT) SODIUM 137 136 - 145 mmol/L [facility] LIC# [id number] POTASSIUM 3.9 3.4 - 5.1 mmol/L [facility] LIC# [id number] CHLORIDE 104 98 - 107 mmol/L [facility] LIC# [id number] CO2 24 22 - 31 mmol/L [facility] LIC# [id number] BUN 18 6 - 23 mg/dL [facility] LIC# [id number] CREATININE 0.89 0.50 - 1.20 mg/dL [facility] LIC# [id number] GLUCOSE 86 70 - 100 mg/dL [facility] LIC# [id number] ALBUMIN 4.4 3.5 - 5.2 g/dL [facility] LIC# [id number] TOTAL PROTEIN 6.6 6.4 - 8.3 g/dL [facility] LIC# [id number] CALCIUM 9.9 8.8 - 10.7 mg/dL [facility] LIC# [id number] ALKALINE PHOSPHATASE 59 35 - 104 U/L [facility] LIC# [id number] TOTAL BILIRUBIN 0.4 0.2 - 1.2 mg/dL [facility] LIC# [id number] AST 23 <33 U/L [facility] LIC# [id number] ALT 23 <34 U/L [facility] LIC# [id number] GLOBULIN 2.2(L) 2.3 - 4.2 g/dL [facility] LIC# [id number] EGFR 73 >59 mL/min/1.7 3m2 [facility] LIC# [id number] Comment:Estimated glomerular filtration rate calculated using the CKD-EPI refit equation. ANION GAP 9 7 - 17 mmol/L [facility] LIC# [id number] Blood 12/09/2024 10:3 9 AM EDT 12/09/2024 11:16 AM EDT us Tania Huber MD LAB BLOOD ORDERABLES Final Resu lt [facility] LIC# [id number] [address] [place] [address] * (ABNORMAL) CBC and differential (12/09/2024 10:39 AM EDT) WBC 3.24(L) 4.00 - 10.00 K/uL [facility] LIC# [id number] RBC 3.40(L) 3.90 - 6.00 M/uL [facility] LIC# [id number] HGB 11.1(L) 11.5 - 16.4 g/dL [facility] LIC# [id number] HCT 32.9(L) 36.0 - 48.0 % [facility] LIC# [id number] PLT 206 150 - 450 K/uL [facility] LIC# [id number] MCV 96.8 80.0 - 100.0 fL [facility] LIC# [id number] MCH 32.6(H) 27.0 - 32.0 pg [facility] LIC# [id number] MCHC 33.7 32.0 - 36.0 g/dL [facility] LIC# [id number] RDW 14.3 11.5 - 14.5 % [facility] LIC# [id number] MPV 9.3 8.4 - 12.0 fL [facility] LIC# [id number] NRBC 0.00 0 /100 WBCs [facility] LIC# [id number] ABSOLUTE NRBC 0.00 0 K/uL [facility] LIC# [id number] DIFF METHOD Auto [facility] LIC# [id number] NEUTS 62.4 48.0 - 76.0 % [facility] LIC# [id number] LYMPHS 25.9 18.0 - 41.0 % [facility] LIC# [id number] MONOS 8.6 4.0 - 11.0 % [facility] LIC# [id number] EOS 2.5 0.0 - 5.0 % [facility] LIC# [id number] BASOS 0.3 0.0 - 1.5 % [facility] LIC# [id number] % IMMATURE GRANS 0.3 0.0 - 1.0 % [facility] LIC# [id number] ABSOLUTE NEUTS 2.02 1.92 - 7.60 K/uL [facility] LIC# [id number] ABSOLUTE LYMPHS 0.84 0.72 - 4.10 K/uL [facility] LIC# [id number] ABSOLUTE MONOS 0.28 0.16 - 1.10 K/uL [facility] LIC# [id number] ABSOLUTE EOS 0.08 0.00 - 0.50 K/uL [facility] LIC# [id number] ABSOLUTE BASOS 0.01 0.00 - 0.15 K/uL [facility] LIC# [id number] ABS IMMATURE GRANS 0.01 0.00 - 0.10 K/uL [facility] LIC# [id number] Blood 12/09/2024 10:3 9 AM EDT 12/09/2024 11:16 AM EDT us Tania Huber MD LAB BLOOD ORDERABLES Final Resu lt Performing Organization Address [facility] Co de Phone Number [facility] LIC# [id number] [address] [place] [address] * Lipid panel (12/09/2024 10:39 AM EDT) CHOLESTEROL 160 <200 mg/dL [facility] LIC# [id number] TRIGLYCERIDES 93 35 - 150 mg/dL [facility] LIC# [id number] HDL 70 40 - 80 mg/dL [facility] LIC# [id number] CALCULATED LDL 71 50 - 129 mg/dL [facility] LIC# [id number] VLDL 19 <31 mg/dL [facility] LIC# [id number] CARDIAC RISK RATIO 2.3 0.0 - 5.0 D [facility] LIC# [id number] Blood 12/09/2024 10:3 9 AM EDT 12/09/2024 11:16 AM EDT us Giuseppe Gomez MD LAB BLOOD ORDERABLES Final Re sult Performing Organization Address [facility] [[email or web address]] de Phone Number [facility] LIC# [id number] [address] [place], [place] [id number] * CT CHEST WITH CONTRAST (12/09/2024 10:15 AM EDT) Anatomical Region Laterality Modality Chest Computed Tomogra phy 12/09/2024 11:4 0 AM EDT Impressions 12/09/2024 12:42 PM EDT 1. Slight decrease in size in the right upper lobe necrotic lesion complete right upper lobe collapse, in keeping with treated primary malignancy. 2. Multiple bilateral pulmonary nodules, in keeping with stable treated metastases. 3. Unchanged T6 sclerotic osseous metastasis. ATTESTATION: Marco Fischer, as teaching physician have reviewed the images, if any, for this patient's exam, and if necessary, have edited the report originally created by Juan M Ruiz. Narrative 12/09/2024 12:[address] CHEST WITH CONTRAST Referring clinician's provided indication for this examination in [facility]: * Non- small cell lung cancer, metastatic, assess treatment response TECHNIQUE: Multidetector CT of the chest was performed with intravenous contrast using tailored dose modulation techniques. COMPARISON: CT CHEST WITH CONTRAST FINDINGS: Devices/Tubes/Lines: None. Lungs: Slight decreased 2.1 x 1.5 cm right upper lobe perihilar necrotic lesion within the collapsed right upper lobe (3:97), previously 2.3 x 1.9 cm. Multiple unchanged pulmonary nodules, for example 3 mm nodule in the left lower lobe (4:200), unchanged 7mm nodule in the lingula adjacent to the accessory fissure (4:181), unchanged 4 mm subpleural nodule in the right upper lobe (4:204). No new or growing nodules. The airways are clear. Pleura: No pleural effusion or pneumothorax. Mediastinum: Mild dilation of the ascending aorta which measures 4.4 cm. Unchanged 1.5 cm low-attenuation lesion in the anterior mediastinum which is likely a thymic cyst. No thyroid nodules. Trace pericardial effusion. Mild amount of coronary calcifications. Lymph Nodes: No pathologically enlarged supraclavicular, axillary, mediastinal, or hilar lymph nodes. Upper Abdomen: Please see concurrent abdominal CT for abdominal findings. Chest Wall: No chest wall mass. Bones: Unchanged T6 vertebral body sclerotic metastasis (series 902 image 77). No new focal osseous lesion. Procedure Note Marco Hernandez MD, PhD - 12/09/2024 CT CHEST WITH CONTRAST Referring clinician's provided indication for this examination in [facility]: *Non- small cell lung cancer, metastatic, assess treatment response TECHNIQUE: Multidetector CT of the chest was performed with intravenouscontrast using tailored dose modulation techniques. COMPARISON: CT CHEST WITH CONTRAST FINDINGS: Devices/Tubes/Lines: None. Lungs: Slight decreased 2.1 x 1.5 cm right upper lobe perihilar necroticlesion within the collapsed right upper lobe (3:97), previously 2.3 x 1.9cm. Multiple unchanged pulmonary nodules, for example 3 mm nodule in theleft lower lobe (4:200), unchanged 7mm nodule in the lingula adjacent tothe accessory fissure (4:181), unchanged 4 mm subpleural nodule in theright upper lobe (4:204). No new or growing nodules. The airways areclear. Pleura: No pleural effusion or pneumothorax. Mediastinum: Mild dilation of the ascending aorta which measures 4.4 cm.Unchanged 1.5 cm low-attenuation lesion in the anterior mediastinum whichis likely a thymic cyst. No thyroid nodules. Trace pericardial effusion.Mild amount of coronary calcifications. Lymph Nodes: No pathologically enlarged supraclavicular, axillary,mediastinal, or hilar lymph nodes. Upper Abdomen: Please see concurrent abdominal CT for abdominalfindings. Chest Wall: No chest wall mass. Bones: Unchanged T6 vertebral body sclerotic metastasis (series [id number] image77). No new focal osseous lesion. IMPRESSION: 1. Slight decrease in size in the right upper lobe necrotic lesioncomplete right upper lobe collapse, in keeping with treated primarymalignancy. 2. Multiple bilateral pulmonary nodules, in keeping with stable treatedmetastases. 3. Unchanged T6 sclerotic osseous metastasis. ATTESTATION: IMarco, as teaching physician have reviewed theimages, if any, for this patient's exam, and if necessary, have edited thereport originally created by Juan M Ruiz. us Tania Huber MD IMG CT CHEST Final Result * CT ABDOMEN/PELVIS WITH CONTRAST (12/09/2024 10:15 AM EDT) Anatomical Region Laterality Modality Abdomen, Pelvis Computed Tomogra phy 12/09/2024 10:3 8 AM EDT Impressions 12/09/2024 10:49 AM EDT 1. Similar sclerotic lesion in the left posterior iliac bone, most likely treated metastases. 2. No new metastases in the abdomen or pelvis. 3. 5 mm nonobstructing left lower pole renal stone. 4. Gallstones. 5. Please see the dictated report for the same day chest CT. Narrative 12/09/2024 10:[address] ABDOMEN/PELVIS WITH CONTRAST Referring clinician's provided indication for this examination in Epic: * Non- small cell lung cancer, metastatic, assess treatment response TECHNIQUE: Multidetector-row CT of the abdomen and pelvis was performed after administration of intravenous contrast using tailored dose modulation techniques. Images were reconstructed in the axial, coronal, and sagittal planes. COMPARISON: CT ABDOMEN/PELVIS WITH CONTRAST FINDINGS: Lower Chest: CT chest from the same day is reported separately. Liver: No focal lesions. Biliary: Tiny gallstones. No biliary ductal dilatation. Spleen: No splenomegaly or focal lesions. Pancreas: Normal. No masses or ductal dilatation. Adrenal Glands: Normal. No nodules. Kidneys/Ureters: Unchanged centimeter bilateral renal cysts. 5 mm nonobstructing left lower pole renal stone. No solid mass or hydronephrosis. Bowel: Normal small bowel and colon. Peritoneum/Retroperitoneum: Normal. No masses, pneumoperitoneum, or fluid. Lymph Nodes: Normal. No lymphadenopathy. Pelvic Organs/Bladder: Underdistended bladder. No mass. Vessels: Normal. No abdominal aortic aneurysm. Bones/Soft Tissues: Small fat-containing umbilical hernia. Scoliosis with multilevel degenerative changes. Similar sclerotic lesion in the left posterior iliac bone (1:45). No new destructive lesions. Procedure Note Chanel Miranda MD - 12/09/2024 CT ABDOMEN/PELVIS WITH CONTRAST Referring clinician's provided indication for this examination in Epic: *Non- small cell lung cancer, metastatic, assess treatment response TECHNIQUE: Multidetector-row CT of the abdomen and pelvis was performedafter administration of intravenous contrast using tailored dosemodulation techniques. Images were reconstructed in the axial, coronal,and sagittal planes. COMPARISON: CT ABDOMEN/PELVIS WITH CONTRAST FINDINGS: Lower Chest: CT chest from the same day is reported separately. Liver: No focal lesions. Biliary: Tiny gallstones. No biliary ductal dilatation. Spleen: No splenomegaly or focal lesions. Pancreas: Normal. No masses or ductal dilatation. Adrenal Glands: Normal. No nodules. Kidneys/Ureters: Unchanged centimeter bilateral renal cysts. 5 mmnonobstructing left lower pole renal stone. No solid mass orhydronephrosis. Bowel: Normal small bowel and colon. Peritoneum/Retroperitoneum: Normal. No masses, pneumoperitoneum, orfluid. Lymph Nodes: Normal. No lymphadenopathy. Pelvic Organs/Bladder: Underdistended bladder. No mass. Vessels: Normal. No abdominal aortic aneurysm. Bones/Soft Tissues: Small fat-containing umbilical hernia. Scoliosis withmultilevel degenerative changes. Similar sclerotic lesion in the leftposterior iliac bone (1:45). No new destructive lesions. IMPRESSION: 1. Similar sclerotic lesion in the left posterior iliac bone, most likelytreated metastases. 2. No new metastases in the abdomen or pelvis. 3. 5 mm nonobstructing left lower pole renal stone. 4. Gallstones. 5. Please see the dictated report for the same day chest CT. us Tania Huber MD IMG CT ABD/PELVIS Final Result * CT CHEST WITH CONTRAST (10/07/2024 10:39 AM EDT) Anatomical Region Laterality Modality Chest Computed Tomogra phy Other 10/07/2024 12:0 0 PM EDT Impressions 10/07/2024 4:29 PM EDT 1. Slightly decreased right upper lobe primary tumor, within new complete right upper lobe collapse. 2. Unchanged bilateral pulmonary nodules, likely metastatic. 3. Unchanged T6 osseous metastasis. ATTESTATION: Dorene Fischer, as teaching physician have reviewed the images, if any, for this patient's exam, and if necessary, have edited the report originally created by José Miguel Galaviz. 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 TECHNIQUE: Multidetector CT of the chest was performed with intravenous contrast using tailored dose modulation techniques. COMPARISON: CT CHEST WITH CONTRAST ; CT CHEST OUTSIDE (NO INTERPRETATION) FINDINGS: Devices/Tubes/Lines: None. Lungs: Decreased ill-defined 2.3 x 1.9 cm spiculated right upper lobe perihilar mass (12:200), previously 2.8 x 2.5 cm, remeasured similarly on prior. Decreased adjacent consolidative and groundglass opacities in the superior right lower lobe and new complete right upper lobe atelectasis, representing postradiation change. Unchanged scattered bilateral pulmonary nodules for example 4 mm subpleural anterior right upper lobe (12:70); 5 mm right upper lobe (12:118); 12 mm right elise-fissural right lower lobe (12:142); 4 mm elise-fissural right lower lobe (12:149); 6 mm lingular (12:194); and 2 mm right lower lobe (12:252). No new suspicious pulmonary nodules. Central airways are patent. Pleura: No pleural effusion or pneumothorax. Mediastinum: Heart normal in size. Similar trace pericardial fluid. Dilated ascending thoracic aorta measuring 4.6 cm. Unchanged 1.4 cm fluid attenuating anterior mediastinal opacity (2:32), likely thymic cyst. Lymph Nodes: No enlarged supraclavicular, axillary, mediastinal, or hilar lymph nodes. Upper Abdomen: Please see concurrent abdominal CT for abdominal findings. Chest Wall: No chest wall mass. Unchanged punctate calcifications in both breasts. Bones: Unchanged T6 vertebral body sclerotic lesion (6:76). No new destructive osseous lesion. Similar multilevel degenerative changes of the visualized spine. Procedure Note Dorene Melchor MD, MPH - 10/07/2024 CT CHEST WITH CONTRAST Referring clinician's provided indication for this examination in [facility]: *Non- small cell lung cancer, metastatic, assess treatment response Review of the Electronic Medical Record reveals an additional history of:metastatic EGFR L858R/EGFR R776H+ lung adenocarcinoma seen in follow up onosimertinib monotherapy. TECHNIQUE: Multidetector CT of the chest was performed with intravenouscontrast using tailored dose modulation techniques. COMPARISON: CT CHEST WITH CONTRAST ; CT CHEST OUTSIDE (NOINTERPRETATION) FINDINGS: Devices/Tubes/Lines: None. Lungs: Decreased ill-defined 2.3 x 1.9 cm spiculated right upper lobeperihilar mass (12:200), previously 2.8 x 2.5 cm, remeasured similarly onprior. Decreased adjacent consolidative and groundglass opacities in thesuperior right lower lobe and new complete right upper lobe atelectasis,representing postradiation change. Unchanged scattered bilateralpulmonary nodules for example 4 mm subpleural anterior right upper lobe(12:70); 5 mm right upper lobe (12:118); 12 mm right elise-fissural rightlower lobe (12:142); 4 mm elise-fissural right lower lobe (12:149); 6 mmlingular (12:194); and 2 mm right lower lobe (12:252). No new suspiciouspulmonary nodules. Central airways are patent. Pleura: No pleural effusion or pneumothorax. Mediastinum: Heart normal in size. Similar trace pericardial fluid.Dilated ascending thoracic aorta measuring 4.6 cm. Unchanged 1.4 cm fluidattenuating anterior mediastinal opacity (2:32), likely thymic cyst. Lymph Nodes: No enlarged supraclavicular, axillary, mediastinal, or hilarlymph nodes. Upper Abdomen: Please see concurrent abdominal CT for abdominalfindings. Chest Wall: No chest wall mass. Unchanged punctate calcifications in bothbreasts. Bones: Unchanged T6 vertebral body sclerotic lesion (6:76). No newdestructive osseous lesion. Similar multilevel degenerative changes of thevisualized spine. IMPRESSION: 1. Slightly decreased right upper lobe primary tumor, within new completeright upper lobe collapse. 2. Unchanged bilateral pulmonary nodules, likely metastatic. 3. Unchanged T6 osseous metastasis. ATTESTATION: IDorene, as teaching physician have reviewed theimages, if any, for this patient's exam, and if necessary, have edited thereport originally created by José Miguel Galaviz. Tania Huber MD IMG CT CHEST Final Result * CT ABDOMEN/PELVIS WITH CONTRAST (10/07/2024 10:39 AM EDT) Anatomical Region Laterality Modality Abdomen, Pelvis Computed Tomogra phy Other 10/07/2024 10:5 7 AM EDT Impressions 10/07/2024 4:14 PM EDT 1. Unchanged 1.0 cm sclerotic lesion in the left posterior iliac bone, likely treated metastasis. 2. No new sites of metastatic disease in abdomen or pelvis. 3. Nonobstructing left kidney stones. ATTESTATION: Hema Fischer, as teaching physician have reviewed the images, if any, for this patient's exam, and if necessary, have edited the report originally created by Ale Ramon. Narrative 10/07/2024 4:[address] ABDOMEN/PELVIS WITH CONTRAST Referring clinician's provided indication for this examination in [facility]: * Non- small cell lung cancer, metastatic, assess treatment response TECHNIQUE: Multidetector-row CT of the abdomen and pelvis was performed after administration of intravenous contrast using tailored dose modulation techniques. Images were reconstructed in the axial, coronal, and sagittal planes. COMPARISON: CT ABDOMEN/PELVIS WITH CONTRAST FINDINGS: Lower Chest: CT chest from the same day is reported separately. Liver: No focal lesions. Biliary: No biliary ductal dilatation. Tiny calcified gallstones. Spleen: No splenomegaly or focal lesions. Pancreas: No masses or ductal dilatation. Adrenal Glands: No nodules. Kidneys/Ureters: Unchanged left lower pole nonobstructing renal stones measuring up to 0.5 cm (8:301). And subcentimeter bilateral renal cysts. No solid masses or hydronephrosis. Bowel: No distention or wall thickening. Peritoneum/Retroperitoneum: No masses, pneumoperitoneum, or fluid. Lymph Nodes: No lymphadenopathy. Pelvic Organs/Bladder: Urinary bladder is decompressed. Uterus is normal. Vessels: No abdominal aortic aneurysm. Bones/Soft Tissues: Unchanged 1.0 cm sclerotic lesion in the left posterior iliac bone (8:442), likely a treated metastasis. Unchanged tiny sclerotic lesion in the right femoral head, likely benign bone island. Procedure Note Hema Rivera MD - 10/07/2024 CT ABDOMEN/PELVIS WITH CONTRAST Referring clinician's provided indication for this examination in [facility]: *Non- small cell lung cancer, metastatic, assess treatment response TECHNIQUE: Multidetector-row CT of the abdomen and pelvis was performedafter administration of intravenous contrast using tailored dosemodulation techniques. Images were reconstructed in the axial, coronal,and sagittal planes. COMPARISON: CT ABDOMEN/PELVIS WITH CONTRAST FINDINGS: Lower Chest: CT chest from the same day is reported separately. Liver: No focal lesions. Biliary: No biliary ductal dilatation. Tiny calcified gallstones. Spleen: No splenomegaly or focal lesions. Pancreas: No masses or ductal dilatation. Adrenal Glands: No nodules. Kidneys/Ureters: Unchanged left lower pole nonobstructing renal stonesmeasuring up to 0.5 cm (8:301). And subcentimeter bilateral renal cysts.No solid masses or hydronephrosis. Bowel: No distention or wall thickening. Peritoneum/Retroperitoneum: No masses, pneumoperitoneum, or fluid. Lymph Nodes: No lymphadenopathy. Pelvic Organs/Bladder: Urinary bladder is decompressed. Uterus isnormal. Vessels: No abdominal aortic aneurysm. Bones/Soft Tissues: Unchanged 1.0 cm sclerotic lesion in the leftposterior iliac bone (8:442), likely a treated metastasis. Unchanged tinysclerotic lesion in the right femoral head, likely benign bone island. IMPRESSION: 1. Unchanged 1.0 cm sclerotic lesion in the left posterior iliac bone,likely treated metastasis. 2. No new sites of metastatic disease in abdomen or pelvis. 3. Nonobstructing left kidney stones. ATTESTATION: Hema Fischer, as teaching physician have reviewed theimages, if any, for this patient's exam, and if necessary, have edited thereport originally created by Ale Ramon. Tania Huber MD IMG CT ABD/PELVIS Final Result * Outside MR Breast Report Only (10/03/2024 9:29 AM EDT) Historical Provider IMG MR BREAST Final Res ult * MRI Breast Outside (No Interpretation) (10/03/2024 12:00 AM EDT) Other Narrative [facility] - 10/07/2024 10:17 AM EDT This study is for PACS storage only and not for interpretation. Tania Huber MD IMG OUTSIDE IMAGING W/OUT INTER PRETATION Final Result [facility] * COLONOSCOPY FOR RESULT ENTRY ONLY (07/28/2024) Pathologist [facility] Colonoscopy 5 year recall EXTERNAL NON-INTERFACE D REF LAB Historical Provider HEALTH MAINTENANCE Final Result EXTERNAL NON-INTERFACED REF LAB * Outside Glucose,Fasting (11/05/2023) Pathologist [facility] Glucose, fasting - External 92 65 - 99 mg/dL Historical Provider LAB BLOOD ORDERABLES Karli l Result * PAP SMEAR FOR RESULT ENTRY ONLY (07/15/2020) Pap smear NILM,, Atrophy, HPV negative Historical Provider HEALTH MAINTENANCE Final Result * Hepatitis C antibody, qualitative (03/09/2020) Giuseppe Gomez MD LAB BLOOD ORDERABLES Edited R esult - Final from Last 3 Months or Most Recently Relevant to Health Maintenance Insurance [employer] [facility] [employer] CHOICE Level[employer] [facility] MIGUELINA [place] MS [employer] [facility] COMMUNITY CHOICE [facility] [place] [address] [facility] CHOICE Advance Directives For more information, please contact: [phone] (9AM - 5PM [facility], Sunday-Sunday) Documents on File Type Date Recorded Patient Training And Documentation Specialist Expl anation Healthcare Proxy 03/05/2023 Healthcare Proxy Care Teams Nut Grinder Relationship Specialty Start Date End Date Giuseppe Gomez MD [address] [place] [address] [email or web address] PCP - General 02/15/17 Giuseppe Gomez MD [address] [place] [address] Historical LMR Provider 02/18/17 Tania Huber MD 450 [facility] [address] [place] [address] [email or web address] 04/10/23 John Cordero MD [address] [place] [id number] 04/10/23 Luis Eduardo Thompson MD [address] [place] [address] [place] [address] Pulmonary Disease 10/30/23 Selvin Mina MD, PhD 450 [facility], [facility] [address] [place] [address] [email or web address] Radiation Oncology 12/03/23 Wesley Stewart MD [address] [place] [address] [email or web address] Radiation Oncology 03/17/24 Additional Source Comments The information contained in this document represents components of the legal health record. It is not the complete legal health record.[facility]
--- OUTSIDE RECORDS SUMMARY | 2024-12-26 10:50 | XMS_ITS ---
Author Organization [facility] Address [address] [place] [address] Phone Care Team Providers Care Felling Bucking Supervisor Name Role Phone Giuseppe Gomez MD Primary Care Provider [phone] Giuseppe Gomez MD Unavailable [phone] Tania Huber MD Unavailable [phone] John Cordero MD Unavailable Luis Eduardo Thompson MD Unavailable Selvin Mina MD, PhD Unavailable [phone] Wesley Stewart MD Unavailable [phone] Active Problems Problem Noted Date Diagnosed Date Ascending aortic aneurysm 01/17/2024 Overview (01/17/2024): Fol with [facility] [place]. Toney Hernandez- Last OV 12/11/23 6m f/u ECHO aristeo 4.7cm, annual f/u advised repair size will be 5.5cm- he enc her kids to be screened- ( her sister also has this) cont HTN and avoid sudden strenuous isometric exercise EGFR-related lung cancer 03/16/2023 Overview (01/02/2024): Fol with oncology [place] loast OV 12/03/23 Dr. Cordero she is going to [place] for radiation and getting denosumaab next dose 01/02/24 r/t 1 month Class 2 severe obesity with body mass index (BMI) of 35 to 39.9 with serious comorbidity 01/29/2023 H/O Hernandez thyroiditis 08/23/2017 Hypercalcemia 08/23/2017 Hyperlipidemia 08/23/2017 Hyperparathyroidism 08/23/2017 Hypothyroid 08/23/2017 Microscopic hematuria 08/23/2017 Pure hypercholesterolemia 08/23/2017 Routine medical exam 08/23/2017 Vitamin D deficiency 08/23/2017 Current Treatment and Therapy Plans No current plan information found. Past Treatment and Therapy Plans No past plan information found. Radiation Treatments * Course C2 02/04/2024 - 02/08/2024 Treatment Period Energy Fraction Dose Fractions Total Dose Plans Planned A1_T6 02/04/2024 - 02/08/2024 700 cGy 5 / 3,500 cGy B1_L_ilium 02/04/2024 - 02/04/2024 2,000 cGy 2,000 cGy Reference Points Delivered A_T6 02/04/2024 - 02/08/2024 3,500 cGy B_L_ilium 02/04/2024 - 02/04/2024 2,000 cGy * Course C1 01/02/2024 - 01/22/2024 Treatment Period Energy Fraction Dose Fractions Total Dose Plans Planned A1_RUL 01/02/2024 - 01/22/2024 400 cGy 5 6,000 cGy Reference Points Delivered A_RUL 01/02/2024 - 01/22/2024 6,000 cGy
--- OUTSIDE RECORDS SUMMARY | 2024-12-26 10:50 | XMS_ITS | Encounter Summary ---
Author Organization [facility] Address [address] [place] [address] Phone Care Team Providers Care Labor Law Professor Name Role Phone Giuseppe Gomez MD Primary Care Provider [phone] Giuseppe Gomez MD Unavailable [phone] Tania Huber MD Unavailable [phone] John Cordero MD Unavailable Luis Eduardo Thompson MD Unavailable Selvin Mina MD, PhD Unavailable [phone] Wesley Stewart MD Unavailable [phone] Encounter Details Date Type Department Care Team (Late st Contact Info) Description 02/05/2024 Procedure Pass [facility], [facility] [place], [place] 450 [facility], Floor [address] [place] [address] Social History Tobacco Use Types Packs/Day Years [...] high school, GED, job training, learning the [place] language, technical skills, or developing parenting skills)? [...] 12/09/2024 Procedure Pass [facility], [facility] [place] [place] 450 [facility], Floor [address] [place] [address] 12/09/2024 Procedure Pass [facility] Imaging Department, [facility], [place] 450 [facility], [facility] [address] [place] [address] 03/04/2025 1:00 PM EST Office Visit [facility] Internal Medicine [address] [place] [address] Giuseppe Gomez MD [address] [place] [address] 03/10/2025 12:15 PM EST Blood Draw [facility] Imaging Department, [facility], Imaging [id number] 450 [facility], Floor [address] [place] [address] Tania Huber MD [address] [id number] [email or web address] 03/10/2025 1:30 PM EST Appointment [facility] Imaging Department, [facility], [place] 450 [facility], [facility] [address]1 [place] [address] Tania Huber MD [address] [address] [email or web address] 03/10/2025 3:30 PM EST Office Visit [facility], [facility] 450 [facility], 9th [place] [address] Tania Huber MD [address] [place] [id number] [email or web address] documented as of this encounter Visit Diagnoses Not on filedocumented in this encounter Additional Health Concerns Assessment Noted Time PHQ-9 Depression Total Score: 7 01/30/20 23 8:13 AM EDT PHQ-2 Depression Total Score: 0 02/18/20 24 6:37 PM EDT documented as of this encounter Care Teams Labor Law Professor Relationship Specialty Start Date End Date Giuseppe Gomez MD [address] [place] [address] [email or web address] PCP - General 02/15/17 Giuseppe Gomez MD [address] [place] [address] [email or web address] Historical LMR Provider 02/18/17 Tania Huber MD 450 [facility] [address] [place] [address] [email or web address] 04/10/23 John Cordero MD [address] [place] [id number] 04/10/23 Luis Eduardo Thompson MD [address] [place] [address] [place] [address] Pulmonary Disease 10/30/23 Selvin Mina MD, PhD 450 [facility], [facility] [address] [place] [address] [email or web address] Radiation Oncology 12/03/23 Wesley Stewart MD [address] [place] [address] [email or web address] 03/17/24 documented as of this encounter Additional Source Comments The information contained in this document represents components of the legal health record. It is not the complete legal health record.[facility]
--- OUTSIDE RECORDS SUMMARY | 2024-12-26 10:50 | XMS_ITS | Encounter Summary ---
Author Organization [facility] Address [address] [place] [address] Phone Care Team Providers Care Financial Developer Name Role Phone Giuseppe Gomez MD Primary Care Provider [phone] Giuseppe Gomez MD Unavailable [phone] Tania Huber MD Unavailable [phone] John Cordero MD Unavailable Luis Eduardo Thompson MD Unavailable Selvin Mina MD, PhD Unavailable [phone] Wesley Stewart MD Unavailable [phone] Encounter Details Date Type Department Care Team (Late st Contact Info) Description 02/05/2024 Procedure Pass [facility], [facility], [place] [address] [facility], Floor L1 [place] [address] Social History Tobacco Use Types Packs/Day Years [...] high school, GED, job training, learning the Taiwanese language, technical skills, or developing parenting skills)? [...] 12/09/2024 Procedure Pass [facility], [facility] [place] [place] [address] [facility], Floor L1 [place] [address] 12/09/2024 Procedure Pass [facility] Imaging Department, [facility], [place] [address] [facility], [facility] L1 [place] [address] 03/04/2025 1:00 PM EST Office Visit [facility] Internal Medicine 40 [place] [address] Giuseppe Gomez MD 40 [place] [address] 03/10/2025 12:15 PM EST Blood Draw [facility] Imaging Department, [facility], Imaging Asjng-fe-Inke [address] [facility], Floor L1 [place] [address] Tania Huber MD [address] [address] [email or web address] 03/10/2025 1:30 PM EST Appointment [facility] Imaging Department, [facility], [place] [address] [facility], [facility] L1 [place] [address] Tania Huber MD [address] [address] [email or web address] 03/10/2025 3:30 PM EST Office Visit [facility], [facility] [address] [facility], 9th [place] [address] Tania Huber MD [address] [place] [address] [email or web address] documented as of this encounter Visit Diagnoses Not on filedocumented in this encounter Additional Health Concerns Assessment Noted Time PHQ-9 Depression Total Score: 7 01/30/20 23 8:13 AM EDT PHQ-2 Depression Total Score: 0 02/18/20 24 6:37 PM EDT documented as of this encounter Care Teams Financial Developer Relationship Specialty Start Date End Date Giuseppe Gomez MD 40 [place] [address] [email or web address] PCP - General 02/15/17 Giuseppe Gomez MD 40 [place] [address] [email or web address] Historical LMR Provider 02/18/17 Tania Huber MD 450 [facility] 1240 [place] [address] [email or web address] 04/10/23 Jhon Cordero MD [address] [place] [address] 04/10/23 Luis Eduardo Thompson MD [address] [place] [address] [place] [address] Pulmonary Disease 10/30/23 Selvin Mina MD, PhD 450 [facility], [facility] 350 [place] [address] [email or web address] Radiation Oncology 12/03/23 Wesley Stewart MD 450 [place] [address] [email or web address] 03/17/24 documented as of this encounter Additional Source Comments The information contained in this document represents components of the legal health record. It is not the complete legal health record.[facility]
--- OUTSIDE RECORDS SUMMARY | 2024-12-26 10:50 | XMS_ITS | Encounter Summary ---
Author Organization [facility] Address 100 [place] [address] Care Team Providers Care Highway Truck Driver Name Role Phone Giuseppe Gomez MD Primary Care Provider [phone] Encounter Details Date Type Department Care Team (Late st Contact Info) Description 04/17/2023 Scanned Document GENERIC EXTERNAL DATA DEPARTMENT Provider, MD Ebony [address] [place] [address] Social History Tobacco Use Types Packs/Day Years [...] on filedocumented in this encounter Care Teams Highway Truck Driver Relationship Specialty Start Date End Date Giuseppe Gomez MD 84 [place] [address] PCP - General Internal Medicine 03/09/23 documented as of this encounter
--- OUTSIDE RECORDS SUMMARY | 2024-12-26 10:50 | XMS_ITS | Encounter Summary ---
Author Organization [facility] Address [address] [place] [address] Phone Care Team Providers Care Tax Consultant Name Role Phone Giuseppe Gomez MD Primary Care Provider [phone] Giuseppe Gomez MD Unavailable [phone] Tania Huber MD Unavailable [phone] John Cordero MD Unavailable Luis Eduardo Thompson MD Unavailable [phone] Selvin Mina MD, PhD Unavailable [phone] Wesley Stewart MD Unavailable [phone] Encounter Details Date Type Department Care Team (Late st Contact Info) Description 06/17/2024 Procedure Pass [facility] Imaging Department, [facility] [place], [place] [address] [facility], Floor L1 [place] [address] Social History Tobacco Use Types Packs/Day Years [...] high school, GED, job training, learning the Cuban language, technical skills, or developing parenting skills)? [...] st Contact Info) Description 12/09/2024 Procedure Pass [facility] Imaging Department, [facility], [place] [address] [facility], Floor L1 [place] [address] 12/09/2024 Procedure Pass [facility] Imaging Department, [facility], [place] [address] [facility], [facility] L1 [place] [address] 03/04/2025 1:00 PM EST Office Visit [facility] Internal Medicine 40 [place] [address] Giuseppe Gomez MD 40 [place] [address] [email or web address] 03/10/2025 12:15 PM EST Blood Draw [facility] Imaging Department, [facility], Imaging Qmqvx-am-Eyjr [address] [facility], [facility] L1 [place] [address] Tania Huber MD [address] [place] [address] [email or web address] 03/10/2025 1:30 PM EST Appointment [facility] Imaging Department, [facility], [place] [address] [facility], Floor [address]1 [place] [address] Tania Huber MD [address] [address] [email or web address]@[facility] 03/10/2025 3:30 PM EST Office Visit [facility], [facility] 450 [facility], 9th [place] [address] Tania Huber MD 450 [facility] 1240 [place] [address] [email or web address] documented as of this encounter Visit Diagnoses Not on filedocumented in this encounter Additional Health Concerns Assessment Noted Time PHQ-9 Depression Total Score: 7 01/30/20 23 8:13 AM EDT PHQ-2 Depression Total Score: 0 02/18/20 24 6:37 PM EDT documented as of this encounter Care Teams Tax Consultant Relationship Specialty Start Date End Date Giuseppe Gomez MD 40 [place] [address] [email or web address] PCP - General 02/15/17 Giuseppe Gomez MD 40 [place] [address] [email or web address] Historical LMR Provider 02/18/17 Tania Huber MD 450 [facility] [address] [place] [address] [email or web address] Medical Oncology 04/10/23 John Cordero MD [address] [place] [id number] 04/10/23 Luis Eduardo Thompson MD [address] [place] [address] [address] [place] [id number] Pulmonary Disease 10/30/23 Selvin Mina MD, PhD [address] [place] [address], [facility] 350 [place] [address] [email or web address] Radiation Oncology 12/03/23 Wesley Stewart MD [address] [place] [address] [email or web address] Radiation Oncology 03/17/24 documented as of this encounter Additional Source Comments The information contained in this document represents components of the legal health record. It is not the complete legal health record.[facility]
--- OUTSIDE RECORDS SUMMARY | 2024-12-26 10:51 | XMS_ITS | Encounter Summary ---
Author Organization [facility] Address [address] [place] [address] Phone Care Team Providers Care Senior Hardware Design Engineer Name Role Phone Giuseppe Gomez MD Primary Care Provider [phone] Giuseppe Gomez MD Unavailable [phone] Tania Huber MD Unavailable [phone] John Cordero MD Unavailable Luis Eduardo Thompson MD Unavailable Selvin Mina MD, PhD Unavailable [phone] Wesley Stewart MD Unavailable [phone] Encounter Details Date Type Department Care Team (Late st Contact Info) Description 03/25/2024 Procedure Pass [facility], [facility] [place], [place] 450 [facility], Floor L1 [place] [address] Social History Tobacco Use Types Packs/Day Years [...] Contact Info) Description 12/09/[address] [facility] Imaging Department, [facility], [place] [address] [facility], Floor L1 [place] [address] 12/09/[address] [facility] Imaging Department, [facility], [place] [address] [facility], [facility] L1 [place] [address] 03/04/2025 1:00 PM EST Office Visit [facility] Internal Medicine 40 [place] [address] Giuseppe Gomez MD 40 [place] [address] [email or web address] 03/10/2025 12:[address] [facility] Imaging Department, [facility], Imaging Pobcn-hl-Vaii 450 [facility], [facility] L1 [place] [address] Tania Huber MD [address] [place] [address] [email or web address] 03/10/2025 1:[address] [facility] Imaging Department, [facility], [place] [address] [facility], Floor L1 [place] [address] Tania Huber MD [address] [address] [email or web address] 03/10/2025 3:30 PM EST Office Visit [facility], [facility] [place] 450 [facility], 9th [place] [address] Tania Huber MD 450 [facility] 1240 [place] [address] [email or web address] documented as of this encounter Visit Diagnoses Not on filedocumented in this encounter Additional Health Concerns Assessment Noted Time PHQ-9 Depression Total Score: 7 01/30/20 23 8:13 AM EDT PHQ-2 Depression Total Score: 0 02/18/20 24 6:37 PM EDT documented as of this encounter Care Teams Senior Hardware Design Engineer Relationship Specialty Start Date End Date Giuseppe Gomez MD 40 [place] [address] [email or web address] PCP - General 02/15/17 Giuseppe Gomez MD 40 [place] [address] [email or web address] Historical LMR Provider 02/18/17 Tania Huber MD 450 [facility] [address] [place] [address] [email or web address] Medical Oncology 04/10/23 John Cordero MD [address] [place] [address] [id number] 04/10/23 Luis Eduardo Thompson MD [address] [place] [address] [address] [place] [id number] Pulmonary Disease 10/30/23 Selvin Mina MD, PhD [address] [place] [address], [facility] 350 [place] [address] [email or web address] Radiation Oncology 12/03/23 Wesley Stewart MD [address] [place] [phone] [email or web address] Oncology 03/17/24 documented as of this encounter Additional Source Comments The information contained in this document represents components of the legal health record. It is not the complete legal health record.[facility]
--- OUTSIDE RECORDS SUMMARY | 2024-12-26 10:51 | XMS_ITS ---
Author Name [facility] [place]) Organization Unknown History of Medication Use Medication Directions Dispensed Refills Start Date End Date Stat us Tagrisso 80 MG tablet 03/06/2023 active levalbuterol (XOPENEX HFA) 45 mcg/puff inhaler INHALE 2 PUFFS BY MOUTH EVERY 4 HOURS NEEDED FOR FOR WHEEZING 02/12/2023 active lisinopril (PRINIVIL,ZeSTRIL) 10 MG tablet Take 1 tablet (10 mg total) by mouth daily. 02/12/2023 active ketoconazole (NIZORAL) 2 % shampoo PLEASE SEE ATTACHED FOR DETAILED DIRECTIONS 01/31/2023 active cetirizine (ZyrTEC) 10 MG tablet Take 1 tablet (10 mg total) by mouth daily. active Coenzyme Q10 (Co Q-10) 300 MG Cap Take by mouth. acti ve denosumab (Xgeva) 120 MG/1.7ML Solution subcutaneous injection Inject 1.7 mL (120 mg total) under the skin once. Monthly active ibuprofen (MOTRIN) 200 MG tablet Take by mouth. 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 2023-03-[facility] Encounter Type Encounter Reason Primary Diagnosis Location Date Ambulatory [facility]23 [facility] [place] [facility] [facility] [facility] Ambulatory Malignant neoplasm of unspecified part of unspecified bronchus or lung Malignant neoplasm of unspecified part of unspecified bronchus or lung [facility] 03/13/2023 Care Team Organization Name Specialty Phone Email Start Date End Da te [facility] 05/20/2023 [facility] 03/13/2023 07/17/19 25 [facility] 03/13/2023 03/13/20 23
--- OUTSIDE RECORDS SUMMARY | 2024-12-26 10:51 | XMS_ITS | Encounter Summary ---
Author Organization [facility] Address [address] [place] [address] Phone Care Team Providers Care It Business Systems Analyst Name Role Phone Giuseppe Gomez MD Primary Care Provider [phone] Giuseppe Gomez MD Unavailable [phone] Tania Huber MD Unavailable [phone] John Cordero MD Unavailable Luis Eduardo Thompson MD Unavailable [phone] Selvin Mina MD, PhD Unavailable [phone] Wesley Stewart MD Unavailable [phone] Encounter Details Date Type Department Care Team (Late st Contact Info) Description 03/25/2024 Procedure Pass [facility] Imaging Department, [facility] [place], [place] 450 [facility], Floor L1 [place] [address] Social History Tobacco Use Types Packs/Day Years [...] high school, GED, job training, learning the Cypriot language, technical skills, or developing parenting skills)? [...] st Contact Info) Description 12/09/2024 Procedure Pass [facility] Imaging Department, [facility], [place] 450 [facility], Floor L1 [place] [address] 12/09/2024 Procedure Pass [facility] Imaging Department, [facility], [place] 450 [facility], [facility] L1 [place] [address] 03/04/2025 1:00 PM EST Office Visit [facility] Internal Medicine 40 [place] [address] Giuseppe Gomez MD 40 [place] [address] [email or web address] 03/10/2025 12:15 PM EST Blood Draw [facility] Imaging Department, [facility], Imaging Hzexb-nh-Kfzj 450 [facility], [facility] L1 [place] [address] Tania Huber MD [address] [place] [phone] [email or web address] 03/10/2025 1:30 PM EST Appointment [facility] Imaging Department, [facility], [place] 450 [facility], Floor L1 [place] [address] Tania Huber MD [address] [address] [email or web address] 03/10/2025 3:30 PM EST Office Visit [facility], [facility] [place] 450 [facility], 9th [place] [address] Tania Huber MD 450 [facility] 1240 [place] [address] [email or web address] documented as of this encounter Visit Diagnoses Not on filedocumented in this encounter Additional Health Concerns Assessment Noted Time PHQ-9 Depression Total Score: 7 01/30/20 23 8:13 AM EDT PHQ-2 Depression Total Score: 0 02/18/20 24 6:37 PM EDT documented as of this encounter Care Teams It Business Systems Analyst Relationship Specialty Start Date End Date Giuseppe Gomez MD 40 [place] [address] [email or web address] PCP - General 02/15/17 Giuseppe Gomez MD 40 [place] [address] [email or web address] Historical LMR Provider 02/18/17 Tania Huber MD 450 [facility] [address] [place] [address] [email or web address] 04/10/23 John Cordero MD [address] [place] [address] [id number] 04/10/23 Luis Eduardo Thompson MD [address] [place] [address] [address] [place] [id number] Pulmonary Disease 10/30/23 Selvin Mina MD, PhD [address] [place] [address], [facility] 350 [place] [address] [email or web address] Radiation Oncology 12/03/23 Wesley Stewart MD [address] [place] [id number] [email or web address] Radiation Oncology 03/17/24 documented as of this encounter Additional Source Comments The information contained in this document represents components of the legal health record. It is not the complete legal health record.[facility]
== END ==
LOC: HO.CARD 10:06
PROVIDERS: PCP Internal Medicine; Visit Provider Internal Medicine Cardiovascular Disease
DX: I71.21 Aneurysm of the ascending aorta, without rupture (principal); R06.09 Other forms of dyspnea
CPT/HCPCS: 93306

== ENCOUNTER → 2024-12-26 10:10 | Outpatient (BNV) | payer OTHER, SELFPAY | PROVIDERS: PCP Internal Medicine; Visit Provider Internal Medicine | DX: I71.21 Aneurysm of the ascending aorta, without rupture (principal) | CPT/HCPCS: 93306 ==

== ENCOUNTER 2025-01-21 11:30 | Outpatient (AMB) | payer OTHER, SELFPAY ==
--- OUTSIDE RECORDS SUMMARY | 2024-08-06 09:00 | XMS_ITS ---
Author Organization [facility] Address [address] [place] [phone] Care Team Providers Care Hitch Technician Name Role Phone Giuseppe Gomez MD Primary [...] Active Encounters Encounter Location Date Provider Diagnosis [facility] [place] [address] [place] [id number] 08/06/2024 Matthew Appiah Jr Colon cancer screening Z12.11 and Family history of colon cancer Z80.0 Assessments Encounter Date Diagnosis (ICD Code) Assessment Notes Treatment Notes Treatment Clinical Notes Section Notes 08/06/2024 Colon cancer screening (ICD-10 - Z12.11) 08/06/2024 Family history of colon cancer (ICD-10 - Z80.0) Plan Of Treatment No Information Progress Notes * NICOLE WEINERDOB:1960 (64 yo F)Acc No.[id number]:08/06/2024 COLON WITH MAC Patient: NICOLE HINOJOSA Provider: Margi Appiah MD :1960 A ge:63 Y S ex:Female Date:08/06/2024 Address:[address] [place] [address], [id number] Pcp:Giuseppe Gomez MD Subjective: * Chief Complaints: [...] MD Date: 0 08/06/2024 Generated for Roly varghese/Samantha/Arashitting on: 0 01/21/2025 02:36 PM EDT
--- OUTSIDE RECORDS SUMMARY | 2024-09-30 04:30 | XMS_ITS ---
Author Organization [facility] Address [address] [facility] [place] [address] Care Team Providers Care [employer] Division Manager Name Role Phone Giuseppe Gomez MD Primary Care Provider Unavaila Susy Gomez [phone] Encounters Encounter Location Date Provider Diagnosis [address] [address] 09/30/2024 Susy Carpio Plan Of Treatment Next Appt Details Provider Name:Susy A Balaji , 02/11/2025 03:00:00 PM, [address] [place] [address], [place], [address], Progress Notes * HUSAM Edna ADOB:[birth year] (64 yo F)Acc No.[id number]:09/30/2024 Progress Notes Patient: Edna HINOJOSA Provider: Ankit Carpio DPM :1960 A ge:63 Y S ex:Female Date:09/30/2024 Address:[address], [id number] Pcp:Giuseppe Gomez MD Subjective: * Chief Complaints: * * Medical History: Objective: * Vitals: Assessment: Plan: * Treatment: * Images: * The named appointment provid er may or may not be the originator of this progress note, and it is not deemed complete until electronically signed by the appointment provider. Sign off status: Pending * Provider: Ankit Carpio DPNiko Date: 0 09/30/2024 Generated for Roly varghese/Samantha/Rula on: 0 01/21/2025 02:36 PM EDT
--- OUTSIDE RECORDS SUMMARY | 2025-01-01 06:15 | XMS_ITS ---
Author Organization [facility] Address [address] [place] [address] Care Team Providers Care Manager Epic Name Role Phone Giuseppe Gomez MD Primary Care Provider Unavaila Susy Gomez Unavailable [phone] Allergies Allergen (clinical drug ingredient) Drug/Non Drug Allergy documented on EMR Reaction Allergy Type Onset Date Status Cat dander Cat Dander Unknown Allergy Active Dog dander Dog Dander Unknown Allergy Active Dust Mites Unknown Allergy Active Pollen Pollen Unknown Allergy Active Medications Medication SIG (Take, Route, Frequency, Duration) Notes Start Date End Date Status Physical Therapy 3-4x per week for 3- 4 weeks 09/16/2020 Not-Taking Physical Therapy . . DX Plantar fascial fibromatosis - M72.2 right foot 2-3x/week 09/16/2020 Not-Taking ZyrTEC Not-Taking Walking Boot/Pneumatic As directed Wear Daily; Duration: Until further notice 01/18/2021 Not-Taking Work Note . . . Medically needed to wear cast boot to right foot until further notice 01/18/2021 Not-Taking Vitamin D 25 MCG (1000 UT) 1 tablet Orally Once a day; Duration: 30 day(s) Active Cephalexin 500 MG 1 capsule Orally thr ee times a day; Duration: 10 days 08/18/2024 Active ibuprofen 1 tab Oral; Duration : 14 days PRN Not-Taking Motrin Not-Taking Excedrin Extra Strength 250-250-65 MG 2 tablets Orally Once a day; Duration: 30 day(s) PRN Active Cetirizine HCl Activ e Xgeva Active Ketoconazole Active Multivitamin Active Acetaminophen Active Osimertinib Mesylate Active Lisinopril Active Atorvastatin Calcium Active CoQ-10 Active Encounters Encounter Location Date Provider Diagnosis [facility] [address] [place] [address] 01/01/2025 Susy Carpio Plan Of Treatment Next Appt Details Provider Name:Susy Carpio , 02/11/2025 03:00:00 PM, [address] [place] [address], [place], [address], Progress Notes * Edna WEINER ADOB:[birth year] (64 yo F)Acc No.[id number]:01/01/2025 Progress Note Patient: Edna HINOJOSA Provider: Samra Carpio DPM :1960 A ge:64 Y S ex:Female Date:01/01/2025 Address:[address] [place] [address], [facility] Pcp:Giuseppe Gomez MD Subjective: * Chief Complaints: * * Medical History: P soriasis/eczema, Mumps, Measles, Headaches/migraines, Chicken pox, Reflux ( GERD), Chronic sinusitis, Thyroid, Cancer, Covid-19, High Blood Pressure, Lung disease, Sinusitis, Chicken pox. * Medications: T aking Osimertinib Mesylate , Taking Lisinopril , Taking Atorvastatin Calcium , Taking CoQ-10 , Taking Cetirizine HCl , Taking Xgeva , Taking Ketoconazole , Taking Multivitamin , Taking Acetaminophen , Taking Excedrin Extra Strength 250-250-65 MG Tablet 2 tablets Orally Once a day , Notes to Pharmacist: PRN, Taking Vitamin D 25 MCG (1000 UT) Tablet 1 tablet Orally Once a day , Taking Cephalexin 500 MG Capsule 1 capsule Orally three times a day , Not-Taking/PRN ibuprofen 1 tab Oral , Notes to Pharmacist: PRN, Not-Taking/PRN Motrin , Not-Taking/PRN Physical Therapy 3-4x per week for 3-4 weeks , Not-Taking/PRN Physical Therapy . . . DX Plantar fascial fibromatosis - M72.2 right foot 2-3x/week , Not-Taking/PRN ZyrTEC , Not- Taking/PRN Walking Boot/Pneumatic As directed Wear Daily , Not-Taking/PRN Work Note . . . . Medically needed to wear cast boot to right foot until further notice * Allergies: P ollen, Dust Mites, Cat Dander, Dog Dander. Objective: * Vitals: Assessment: Plan: * Treatment: * Images: * The named appointment provid er may or may not be the originator of this progress note, and it is not deemed complete until electronically signed by the appointment provider. Sign off status: Pending * Provider: Samra Carpio DPM Date: 01/01/2025 Generated for Roly varghese/Samantha/Arashitting on: 01/21/2025 02:37 PM EDT
--- NOTE | 2025-01-21 11:34 | MHC.OFFVIS ---
Vital Signs 01/21/25 11:35 Height 5 ft 2 in Weight 191 lb 12.835 oz BMI 35.1 BP 136/80 Blood Pressure Location Lt brachial Position Sitting Pulse 69 Intake Visit Reasons: 1 yr s/p echo Intake Note: 1 year follow-up with ekg after echo feeling good Aoc Operations Intelligence Officer Required: No Allergies cat dander (CATS) Allergy (Mild, Verified 12/02/24 10:50) RUNNY NOSE dog dander (DOG) Allergy (Mild, Verified 12/02/24 10:50) ITCHY EYES ENVIRONMENTAL Allergy (Mild, Uncoded 12/02/24 10:50) RUNNY NOSE SEASONAL ALLERGIES Allergy (Mild, Uncoded 12/02/24 10:50) RUNNY NOSE Medication List - Last Reconciled 01/21/25 by Toney Hernandez MD [id number]-sjebjbfopxhpb-zghjboef 250-250-65 mg (Excedrin Extra Strength) 1 tab PO Q4-6H PRN atorvastatin 10 mg PO DAILY cetirizine 10 mg PO DAILY cholecalciferol (vitamin D3) 50 mcg PO DAILY coenzyme Q10 300 mg PO DAILY denosumab (Xgeva) 120 mg subcut Q4W ketoconazole 2% 1 appl topical DAILY levalbuterol tartrate 45 mcg/actuation 2 puffs inhalation Q4H PRN lisinopril 10 mg PO DAILY magnesium 400 mg PO DAILY mometasone 0.1% 1 appl topical DAILY nystatin 1 appl topical BID ondansetron 8 mg PO Q8H osimertinib 80 mg PO Q24H HPI Comments Details: Razia comes for follow-up. Overall from cardiac perspective she has been doing well. She has no cardiac symptoms. She says her cancer care is also doing well and she is progressing well with the treatment. He has no significant side effects. She maintains activity level. Denies any exertional chest pain or shortness of breath. Recent echocardiogram shows persistent moderately enlarged ascending aorta consistent with a ascending aortic aneurysm with normal LV function. She says a blood pressure is generally well controlled on current medications. [facility] Medical History (Updated 01/21/25 @ 16:50 by Toney Hernandez MD) High blood pressure Lung cancer BORGES (dyspnea on exertion) History of COVID-19 Osteopenia (~2015) Hyperlipidemia Hemoptysis Lung mass Surgical History History of bronchoscopy History of cervical biopsy History of endoscopy History of colonoscopy History of extraction of renal calculus Family History Father Colon cancer Mother Breast cancer Thyroid disease Social History Household Members: Spouse Are you a primary critical care registered nurse to a significant other at home: No Do you presently have visiting nurse or other home services: No Alcohol intake: never Patient Tobacco Use Status: Never used Tobacco service: No Current occupational status: employed Review of Systems Const Denies chills, Denies fatigue, Denies fever(s), Denies frequent falls, Denies weakness, Denies weight gain and Denies weight loss ENT Denies dizziness Card Denies chest pain, Denies leg edema, Denies lightheadedness, Denies palpitations, Denies dyspnea, Denies dyspnea on exertion, Denies orthopnea and Denies other (loss of consciousness) Resp Denies cough, Denies dyspnea and Denies dyspnea on exertion GI Denies hematochezia and Denies change in stool character Musc Denies abnormal gait, Denies muscle weakness, Denies numbness, Denies radiating pain into limb and Denies tingling Neuro Denies Abnormal speech present, Denies abnormal gait, Denies dizziness, Denies frequent falls, Denies numbness, Denies tingling and Denies weakness Endo Denies fatigue and Denies palpitations Physical Exam Vital Signs: Last Vital Signs Pulse 69 01/21/25 11:35 BP 136/80 01/21/25 11:35 BMI result Body Mass Index 35.1 Const General: cooperative, comfortable, no acute distress, well developed, alert, awake, Physically active and well groomed Nutritional Appearance: well nourished and obese Orientation/consciousness: patient oriented x3 Limitations: no limitations HEENT Head: Yes normocephalic and Yes atraumatic Neck Neck: Yes trachea midline, Yes supple and Yes no JVD Resp Effort & Inspection: normal respiratory effort Auscultation: clear to auscultation bilaterally Cardio Jugular venous distension: no JVD Palpation: normal PMI Rate: regular rate Rhythm: regular rhythm Heart sounds: S1 normal heart sound present, S2 normal heart sound present, no click, no gallops, no murmurs and no rubs Peripheral pulses: Peripheral pulses 2+ throughout GI Auscultation: normal bowel sounds Skin General skin exam: no rashes or lesions noted Neuro General: patient oriented x3 and no focal motor deficits Speech: No Abnormal speech present Extrem General: Yes no clubbing, cyanosis or edema Office Procedures EKG Details: EKG shows normal sinus rhythm with normal EKG 80268-[id number], Complete Assessment & Plan Assessment & Plan (1) Ascending aortic aneurysm: Code(s): I71.21 - Aneurysm of the ascending aorta, without rupture Category: Medical Plan: Ascending aortic aneurysm, moderately enlarged but stable. Continue to monitor by echocardiogram on annual basis. Continue aggressive blood pressure control, currently on lisinopril 10 mg with well optimized blood pressure. Advised to monitor blood pressure intermittently at home. Target goal blood pressure less than 130/84. Low-salt diet was discussed. Stress mitigation strategies was discussed. Also currently on statin therapy, target goal LDL less than 100 mg/dL. Advised to avoid sudden strenuous isometric exercise. Can participate in regular physical activity and aerobic exercises. Symptoms acute aortic syndrome were discussed. No surgical interventions required at this point time. Follow up in the clinic in 1 year's time after an echocardiogram. Thank you for allowing me to partake in her care Orders: Orders CA echo transthoracic complete 1 Year I71.21 - Aneurysm of the ascending aorta, without rupture Coding Level of Care Code Est Pt Level 4 (09838) Complex EM visit Add On G2211 Diagnoses Ascending aortic aneurysm I71.21 CPT Codes EKG - CPT: 12956-Amvujkrkajlkxzydb, Complete ([id number])
[2025-01-21 11:35] VITALS: BP 136/80; PULSE 69; BMI 35.1
--- OUTSIDE RECORDS SUMMARY | 2025-01-21 14:36 | XMS_ITS | Encounter Summary ---
Author Organization [facility] Address [address] [place] [address] Phone Care Team Providers Care Soldering Machine Operator Name Role Phone Giuseppe Gomez MD Primary Care Provider [phone] Giuseppe Gomez MD Unavailable [phone] Tania Huber MD Unavailable [phone] John Cordero MD Unavailable [phone] Luis Eduardo Thompson MD Unavailable [phone] Selvin Mina MD, PhD Unavailable [phone] Wesley Stewart MD Unavailable [phone] Encounter Details Date Type Department Care Team (Late st Contact Info) Description 06/17/2024 Procedure Pass [facility], [facility] [place], [place] [address] [facility], Floor [address] [place] [address] Social History Tobacco Use Types Packs/Day Years [...] high school, GED, job training, learning the Serbian language, technical skills, or developing parenting skills)? [...] st Contact Info) Description 12/09/2024 Procedure Pass [facility] Imaging Department, [facility], [place] [address] [facility], Floor [address] [place] [address] 12/09/2024 Procedure Pass [facility] Imaging Department, [facility], [place] [address] [facility], [facility] [address] [place] [address] 03/04/2025 1:00 PM EST Office Visit [facility] Internal Medicine 40 [place] [address] Giuseppe Gomez MD 40 [place] [address] [email or web address] 03/10/2025 12:15 PM EST Blood Draw [facility] Imaging Department, [facility], Imaging Cuckq-dw-Wmgx [address] [facility], [facility] [address] [place] [address] Tania Huber MD [address] [place] [address] [email or web address] 03/10/2025 1:30 PM EST Appointment [facility] Imaging Department, [facility], [place] [address] [facility], Floor [address] [place] [address] Tania Huber MD [address] [address] [email or web address] 03/10/2025 3:30 PM EST Office Visit [facility], [facility] [address] [facility], 9th [place] [address] Tania Huber MD 450 [facility] [address]40 [place] [address] [email or web address] 03/17/2025 11:30 AM EST Appointment [facility] Department of Radiation Oncology [address] [facility], Floor [address] [place] [address] Wesley Stewart MD 450 [place] [address] [email or web address] documented as of this encounter Visit Diagnoses Not on filedocumented in this encounter Additional Health Concerns Assessment Noted Time PHQ-9 Depression Total Score: 7 01/30/20 23 8:13 AM EDT PHQ-2 Depression Total Score: 0 02/18/20 24 6:37 PM EDT documented as of this encounter Care Teams Soldering Machine Operator Relationship Specialty Start Date End Date Giuseppe Gomez MD [address] [place] [address] [email or web address] PCP - General 02/15/17 Giuseppe Gomez MD [address] [place] [address] Historical LMR Provider 02/18/17 Tania Huber MD 450 [facility] [address] [place] [address] [email or web address] Medical [email or web address] 04/10/23 John Cordero MD [address] [place] [address] 04/10/23 Luis Eduardo Thompson MD [address] [place] [address] [place] [address] Pulmonary Disease 10/30/23 Selvin Mina MD, PhD [address] [place] [address] [email or web address] Radiation Oncology 12/03/23 Wesley Stewart MD [address] [place] [address] [email or web address] Oncology 03/17/24 documented as of this encounter Additional Source Comments The information contained in this document represents components of the legal health record. It is not the complete legal health record.[facility]
--- OUTSIDE RECORDS SUMMARY | 2025-01-21 14:36 | XMS_ITS | Encounter Summary ---
Author Organization [facility] Address [address] [place] [address] Phone Care Team Providers Care Hotel Assistant General Manager Name Role Phone Giuseppe Gomez MD Primary Care Provider [phone] Giuseppe Gomez MD Unavailable [phone] Tania Huber MD Unavailable [phone] John Cordero MD Unavailable Luis Eduardo Thompson MD Unavailable [phone] Selvin Mina MD, PhD Unavailable [phone] Wesley Stewart MD Unavailable [phone] Encounter Details Date Type Department Care Team (Late st Contact Info) Description 06/17/2024 Procedure Pass [facility] Imaging Department, [facility] [place], [place] [address] [facility] [employer] [facility], Floor [address] [place] [address] Social History Tobacco Use Types Packs/Day Years [...] high school, GED, job training, learning the Montenegrin language, technical skills, or developing parenting skills)? [...] st Contact Info) Description 12/09/2024 Procedure Pass [facility] Imaging Department, [facility], [place] [address] [facility], Floor [address] [place] [address] 12/09/2024 Procedure Pass [facility] Imaging Department, [facility], [place] [address] [facility], [facility] L1 [place] [address] 03/04/2025 1:00 PM EST Office Visit [facility] Internal Medicine 40 [place] [address] Giuseppe Gomez MD 40 [place] [address] [email or web address] 03/10/2025 12:15 PM EST Blood Draw [facility] Imaging Department, [facility], Imaging Jeigh-fz-Ozos [address] [facility], [facility] [address]1 [place] [address] Tania Huber MD [address] [place] [address] [email or web address] 03/10/2025 1:30 PM EST Appointment [facility] Imaging Department, [facility], [place] [address] [facility], Floor [address] [place] [address] Tania Huber MD [address] [address] [email or web address] 03/10/2025 3:30 PM EST Office Visit [facility], [facility] 450 [facility], 9th [place] [address] Tania Huber MD 450 [facility] [address]40 [place] [address] [email or web address] 03/17/2025 11:30 AM EST Appointment [facility] Department of Radiation Oncology [address] [facility], Floor [address] [place] [address] Wesley Stewart MD 450 [place] [address] [email or web address] documented as of this encounter Visit Diagnoses Not on filedocumented in this encounter Additional Health Concerns Assessment Noted Time PHQ-9 Depression Total Score: 7 01/30/20 23 8:13 AM EDT PHQ-2 Depression Total Score: 0 02/18/20 24 6:37 PM EDT documented as of this encounter Care Teams Hotel Assistant General Manager Relationship Specialty Start Date End Date Giuseppe Gomez MD [address] [place] [phone] [email or web address] PCP - General 02/15/17 Giuseppe Gomez MD [address] [place] [address] Historical LMR Provider 02/18/17 Tania Huber MD 450 [facility] [address]40 [place] [address] [email or web address] Medical Oncology 04/10/23 John Cordero MD [address] [place] [address] 04/10/23 Luis Eduardo Thompson MD [address] [place] [address] [place] [address] Pulmonary Disease 10/30/23 Selvin Mina MD, PhD [address] [place] [address] [email or web address] Radiation Oncology 12/03/23 Wesley Stewart MD [address] [place] [address] [email or web address] Oncology 03/17/24 documented as of this encounter Additional Source Comments The information contained in this document represents components of the legal health record. It is not the complete legal health record.[facility]
--- OUTSIDE RECORDS SUMMARY | 2025-01-21 14:37 | XMS_ITS | Encounter Summary ---
Author Organization [facility] Address [address] [place] [address] Phone Care Team Providers Care Secretary Bookkeeper Name Role Phone Giuseppe Gomez MD Primary Care Provider [phone] Giuseppe Gomez MD Unavailable [phone] Tania Huber MD Unavailable [phone] John Cordero MD Unavailable Luis Eduardo Thompson MD Unavailable Selvin Mina MD, PhD Unavailable [phone] Wesley Stewart MD Unavailable [phone] Encounter Details Date Type Department Care Team (Late st Contact Info) Description 10/07/2024 Procedure Pass [facility] Imaging, [place] [address] [place] [address] Social History Tobacco Use Types Packs/Day Years [...] Contact Info) Description 12/09/2024 Procedure Pass [facility] Imaging Department, [facility], [place] [address] [facility], Floor [address] [place] [address] 12/09/2024 Procedure Pass [facility] Imaging Department, [facility] [address] [facility], Floor [address] [place] [address] 03/04/2025 1:00 PM EST Office Visit [facility] Internal Medicine [address] [place] [address] Giuseppe Gomez MD 40 [place] [address] [email or web address] 03/10/2025 12:15 PM EST Blood Draw [facility] Imaging Department, [facility], Imaging Aegge-tf-Mtye [address] [facility], [facility] [address]1 [place] [address] Tania Huber MD [address] [address] [email or web address] 03/10/2025 1:30 PM EST Appointment [facility] Imaging Department, [facility], [place] [address] [facility], Floor [address]1 [place] [address] Tania Huber MD 450 [facility] [address] [place] [phone] [email or web address] 03/10/2025 3:30 PM EST Office Visit [facility], [facility] [address] [facility], 9th [place] [address] Tania Huber MD 450 [facility] [address] [place] [address] [email or web address] 03/17/2025 11:30 AM EST Appointment [facility] Department of Radiation Oncology [address] [place] [address], Floor [address]2 [place] [address] Wesley Stewart MD 450 [place] [address] [email or web address] documented as of this encounter Visit Diagnoses Not on filedocumented in this encounter Additional Health Concerns Assessment Noted Time PHQ-9 Depression Total Score: 7 01/30/20 23 8:13 AM EDT PHQ-2 Depression Total Score: 0 02/18/20 24 6:37 PM EDT documented as of this encounter Care Teams Secretary Bookkeeper Relationship Specialty Start Date End Date Giuseppe Gomez MD [address] [place] [phone] [email or web address] PCP - General 02/15/17 Giuseppe Gomez MD [address] [place] [address] [email or web address] Historical LMR Provider 02/18/17 Tania Huber MD [address] [place] [address] [email or web address] Medical Oncology 04/10/23 John Cordero MD [address] [place] [address] 04/10/23 Luis Eduardo Thompson MD [address] [place] [address] [place] [address] Pulmonary Disease 10/30/23 Selvin Mina MD, PhD [address] [place] [address] [email or web address] Radiation Oncology 12/03/23 Wesley Stewart MD [address] [place] [address] [email or web address] Radiation Oncology 03/17/24 documented as of this encounter Additional Source Comments The information contained in this document represents components of the legal health record. It is not the complete legal health record.[facility]
--- OUTSIDE RECORDS SUMMARY | 2025-01-21 14:37 | XMS_ITS | Patient Health Record ---
Author Organization [facility] Address [address] [place] [address] Care Team Providers Care Instrumentation Fitter Name Role Phone Giuseppe Gomez MD Primary Care Provider Unavaila Kareem Gomezmie Unavailable [phone] Allergies Allergen (clinical drug ingredient) Drug/Non Drug [...] : 14 days PRN Not-Taking Motrin Not-Taking Physical Therapy 3-4x per week for 3- 4 weeks 09/16/2020 Not-Taking Physical Therapy . . DX Plantar fascial fibromatosis - M72.2 right foot 2-3x/week 09/16/2020 Not-Taking ZyrTEC Not-Taking Walking Boot/Pneumatic As directed Wear Daily; Duration: Until further notice 01/18/2021 Not-Taking Work Note . . . Medically needed to wear cast boot to right foot until further notice 01/18/2021 Not-Taking Osimertinib Mesylate Active Lisinopril Active Atorvastatin Calcium Active CoQ-10 Active Cetirizine HCl Activ e Xgeva Active Ketoconazole Active Multivitamin Active Acetaminophen Active Excedrin Extra Strength 250-250-65 MG [...] Ulcer of toe of right foot (disorder) ([id number]) Skin ulcer of toe of right foot, limited to breakdown of skin (L97.511) Active confirmed Response to treatment Nonapplicable Vital Signs Blood pressure diastolic 80 mm Hg 09/01/2024 Height 5ft2in in 09/01/2024 Blood pressure systolic 123 mm Hg 09/01/2024 Weight 185 lbs 09/01/2024 BMI 33.83 kg/m2 09/01/2024 Procedures Procedure Date Ordered Date Performed Result Body Sit e 41907- Debride <25 sq cm 09/01/2024 N/A Encounters Encounter Location Date Provider Diagnosis [address] [address] 08/18/2024 Susy Black Abscess of toe, right L02.611 ; Ingrown nail L60.0 ; Pain in left toe(s) M79.675 ; Pain in right toe(s) M79.674 and Cellulitis of right toe L03.[facility] [address] 09/01/2024 Susy Black Skin ulcer of toe of right foot, limited to breakdown of skin L97.511 [facility] [address] 08/12/2024 Susy Black [facility] [place] [address] 08/20/2024 Susy Carpio [facility] [address] [place] [address] 12/30/2024 Susy Carpio Assessments Encounter Date Diagnosis (ICD [...] X ray : Foot, right 3V 01/18/2021 70877- Debride <25 sq cm 09/01/2024 31927,R6668-BYE TENDON SHEATH/LIGAMENT 0 08/31/2020 Next Appt Details Provider Name:Susy Carpio , 02/11/2025 03:00:00 PM, [address] [facility], [place], [address], Insurance Providers Payer Name Payer Address Payer Phone Subscriber Number Group Number Insured Name Patient Relationship to Insured Coverage Start Date Coverage End Date [facility] [address] [place] [address] [id number] Bobby Spouse - patient is [...]
--- OUTSIDE RECORDS SUMMARY | 2025-01-21 14:37 | XMS_ITS | Encounter Summary ---
Author Organization [facility] Address [address] [place] [address] Phone Care Team Providers Care Lumber Marker Name Role Phone Giuseppe Gomez MD Primary Care Provider [phone] Giuseppe Gomez MD Unavailable [phone] Tania Huber MD Unavailable [phone] John Cordero MD Unavailable Luis Eduardo Thompson MD Unavailable Selvin Mina MD, PhD Unavailable [phone] Wesley Stewart MD Unavailable [phone] Encounter Details Date Type Department Care Team (Late st Contact Info) Description 10/07/2024 Procedure Pass [facility] [address] [address] Social History Tobacco Use Types Packs/Day Years [...] high school, GED, job training, learning the Egyptian language, technical skills, or developing parenting skills)? [...] st Contact Info) Description 12/09/2024 Procedure Pass [facility] Imaging Department, [facility], [place] 450 [facility], Floor [address] [place] [address] 12/09/2024 Procedure Pass [facility] Imaging Department, [facility], [place] 450 [facility], [facility] [address] [place] [address] 03/04/2025 1:00 PM EST Office Visit [facility] Internal Medicine [address] [place] [address] Giuseppe Gomez MD 40 [place] [address] [email or web address] 03/10/2025 12:15 PM EST Blood Draw [facility] Imaging Department, [facility], Imaging [id number] 450 [facility], [facility] [address] [place] [address] Tania Huber MD [address] [address] [email or web address] 03/10/2025 1:30 PM EST Appointment [facility] Imaging Department, [facility], [place] 450 [facility], [facility] [address] [place] [address] Tania Huber MD [address] [address] [email or web address] 03/10/2025 3:30 PM EST Office Visit [facility] Center for Thoracic Oncology, [facility] 450 [facility], 9th [place] [address] Tania Huber MD 450 [facility] 1240 [place] [address] [email or web address] 03/17/2025 11:30 AM EST Appointment [facility] Department of Radiation Oncology 450 [facility], Floor [address]2 [place] [address] Wesley Stewart MD 450 [place] [address] [email or web address] documented as of this encounter Visit Diagnoses Not on filedocumented in this encounter Additional Health Concerns Assessment Noted Time PHQ-9 Depression Total Score: 7 01/30/20 23 8:13 AM EDT PHQ-2 Depression Total Score: 0 02/18/20 24 6:37 PM EDT documented as of this encounter Care Teams Lumber Marker Relationship Specialty Start Date End Date Giuseppe Gomez MD [address] [place] [address] [email or web address] PCP - General 02/15/17 Giuseppe Gomez MD [address] [place] [address] Historical LMR Provider 02/18/17 Tania Huber MD 450 [facility] 1240 [place] [address] [email or web address] 04/10/23 John Cordero MD [address] [place] [address] 04/10/23 Luis Eduardo Thompson MD [address] [place] [address] [place] [address] Pulmonary Disease 10/30/23 Selvin Mina MD, PhD [address] [place] [address] [email or web address] Radiation Oncology 12/03/23 Wesley Stewart MD [address] [place] [address] [email or web address] Oncology 03/17/24 documented as of this encounter Additional Source Comments The information contained in this document represents components of the legal health record. It is not the complete legal health record.[facility]
--- OUTSIDE RECORDS SUMMARY | 2025-01-21 14:37 | XMS_ITS | Encounter Summary ---
Author Organization [facility] Address [address] [place] [address] Care Team Providers Care Orientation & Mobility Specialist Name Role Phone Giuseppe Gomez MD Primary Care Provider [phone] Encounter Details Date Type Department Care Team (Late st Contact Info) Description 04/17/2023 Scanned Document GENERIC EXTERNAL DATA DEPARTMENT Provider, MD Ebony [address] [place] [address] Social History Tobacco Use Types Packs/Day Years [...] on filedocumented in this encounter Care Teams Orientation & Mobility Specialist Relationship Specialty Start Date End Date Giuseppe Gomez MD [address] [place] [address] PCP - General Internal Medicine 03/09/23 documented as of this encounter
--- OUTSIDE RECORDS SUMMARY | 2025-01-21 14:37 | XMS_ITS | Clinical Summary ---
Author Organization [facility] Address [address] [place] [address] Care Team Providers Care Sand Molder Name Role Phone Giuseppe Gomez MD Primary Care Provider [phone] Allergies Active Allergy Reactions Criticality Noted Date [...] by mouth daily. 3 Active nystatin (MYCOSTATIN) 485251 UNIT/GM cream Apply topically. 3 Active ondansetron [...] 60-74 years 1-dose series) 2020 Influenza Vaccine 11/28/2024 03/05/2023, , 03/17/2021, Additional history exists COVID-19 Vaccine ( season) 2024 02/09/2021, 05/12/2020, 04/21/2020 Hepatitis B Vaccines Aged Out No long er eligible based on patient's age to complete this topic Insurance [facility] Care Teams Sand Molder Relationship Specialty Start Date End Date Giuseppe Gomez MD [address] [place] [address] PCP - General Internal Medicine 03/09/23
--- OUTSIDE RECORDS SUMMARY | 2025-01-21 14:37 | XMS_ITS | Patient Health Record ---
Author Organization [facility] Address [address] [place] [phone] Care Team Providers Care Palletiser Operator Name Role Phone Jason HOLLINS, Giuseppe Primary [...] Problem Status W/U Status Risk Notes Problem [id number] Colon cancer screening (Z12.11) Active confirmed Problem [id number] Encounter for ot her preprocedural examination (Z01.818) Active confirmed Problem [id number] Gastroesophageal reflux disease, esophagitis presence not specified (K21.9) Active confirmed Vital Signs Blood pressure diastolic 11 mm Hg 07/24/2024 Height 63.5 in 07/24/2024 Blood pressure systolic 111 mm Hg 07/24/2024 Weight 190 lbs 07/24/2024 BMI 33.13 kg/m2 07/24/2024 Encounters Encounter Location Date Provider Diagnosis [facility] [place] [address] [place] [address] [place] [id number] 08/06/2024 Matthew Appiah Jr Colon cancer screening Z12.11 and Family history of colon cancer Z80.0 [facility] [address] [facility] [address] [address] [place] [phone] 07/24/2024 Matthewavani Appiah Jr Colon cancer screening Z12.11 and Encounter for other preprocedural examination Z01.818 [facility] 10 [facility] [address] [place] [phone] 07/31/2024 Matthew Tdfrandy Leon Assessments Encounter Date [...] Insured Coverage Start Date Coverage End Date [facility] Insurance ([employer]) [address] [place] [address] [id number] NICOLE WEINER Self - patient is the insured Medical (General) History Medical History History ICD Code degenerative joint disease nephrolithiasis Denies NM,DM,CVA,Lung disease,renal dise ase parathyroid lesions vitamin D deficiency thoracic aortic aneurysm seasonal allergies 01/2023 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
--- OUTSIDE RECORDS SUMMARY | 2025-01-21 14:37 | XMS_ITS ---
Author Organization [facility] Address [address] [place] [address] Phone Care Team Providers Care Hull And Deck Remover Name Role Phone Giuseppe Gomez MD Primary Care Provider [phone] Giuspepe Gomez MD Unavailable [phone] Tania Huber MD Unavailable [phone] John Cordero MD Unavailable Luis Eduardo Thompson MD Unavailable Selvin Mina MD, PhD Unavailable Wesley Stewart MD Unavailable [phone] Active Problems Problem Noted Date Diagnosed Date Ascending aortic aneurysm 01/17/2024 Overview (01/17/2024): Fol with [facility] card Dr. Toney Hernandez- Last OV 12/11/23 6m f/u ECHO aristeo 4.7cm, annual f/u advised repair size will be 5.5cm- he enc her kids to be screened- ( her sister also has this) cont HTN and avoid sudden strenuous isometric exercise EGFR-related lung cancer 03/16/2023 Overview (01/02/2024): Fol with oncology [place] [facility] OV 12/03/23 Dr. Cordero she is going to [place] for radiation and getting denosumaab next dose [...]
--- OUTSIDE RECORDS SUMMARY | 2025-01-21 14:37 | XMS_ITS | Encounter Summary ---
Author Organization [facility] Address [address] [place] [address] Phone Care Team Providers Care Mycologist Name Role Phone Giuseppe Gomez MD Primary Care Provider [phone] Giuseppe Gomez MD Unavailable [phone] Taina Huber MD Unavailable [phone] John Cordero MD Unavailable Luis Eduardo Thompson MD Unavailable Selvin iMna MD, PhD Unavailable [phone] Wesley Stewart MD Unavailable [phone] Encounter Details Date Type Department Care Team (Late st Contact Info) Description 10/07/2024 Procedure Pass [facility] Imaging, [place] [address] [place] [address] Social History Tobacco Use Types Packs/Day Years [...] high school, GED, job training, learning the Japanese language, technical skills, or developing parenting skills)? [...] Info) Description 12/09/2024 Procedure Pass [facility] Imaging Department, [facility], [place] 450 [facility], Floor [address]1 [place] [address] 12/09/2024 Procedure Pass [facility] Imaging Department, [facility], [place] 450 [facility], Floor [address]1 [place] [address] 03/04/2025 1:00 PM EST Office Visit [facility] Internal Medicine [address] [place] [address] Giuseppe Gomez MD 40 [place] [address] [email or web address] 03/10/2025 12:15 PM EST Blood Draw [facility] Imaging Department, [facility], Imaging [id number] 450 [facility], [facility] [address]1 [place] [address] Tania Huber MD [address] [address] [email or web address] 03/10/2025 1:30 PM EST Appointment [facility] Imaging Department, [facility], [place] 450 [facility], Floor [address] [place] [address] Tania Huber MD 450 [facility] [address] [place] [address] [email or web address] 03/10/2025 3:30 PM EST Office Visit [facility] Center for Thoracic Oncology, [facility] 450 [facility], 9th [place] [address] Tania Huber MD 450 [facility] [address]40 [place] [address] [email or web address] 03/17/2025 11:30 AM EST Appointment [facility] Department of Radiation Oncology [address] [place] [address], Floor [address] [place] [address] Wesley Stewart MD 450 [place] [address] [email or web address] documented as of this encounter Visit Diagnoses Not on filedocumented in this encounter Additional Health Concerns Assessment Noted Time PHQ-9 Depression Total Score: 7 01/30/20 23 8:13 AM EDT PHQ-2 Depression Total Score: 0 02/18/20 24 6:37 PM EDT documented as of this encounter Care Teams Mycologist Relationship Specialty Start Date End Date Giuseppe Gomez MD [address] [place] [phone] [email or web address] PCP - General 02/15/17 Giuseppe Gomez MD [address] [place] [phone] [email or web address] Historical LMR Provider 02/18/17 Tania Huber MD [address] [place] [address] [email or web address] 04/10/23 John Cordero MD [address] [place] [address] 04/10/23 Luis Eduardo Thompson MD [address] [place] [address] [place] [address] Pulmonary Disease 10/30/23 Selvin Mina MD, PhD [address] [place] [address] [email or web address] Radiation Oncology 12/03/23 Wesley Stewart MD [address] [place] [address] [email or web address] Radiation Oncology 03/17/24 documented as of this encounter Additional Source Comments The information contained in this document represents components of the legal health record. It is not the complete legal health record.[facility]
--- OUTSIDE RECORDS SUMMARY | 2025-01-21 14:37 | XMS_ITS | Clinical Summary ---
Author Organization [facility] Address [facility] [employer] [facility] [address] [place] [address] Phone Care Team Providers Care Early Childhood Education Worker Name Role Phone Giuseppe Gomez MD Primary Care Provider [phone] Giuseppe Gomez MD Unavailable [phone] Tania Huber MD Unavailable [phone] John Cordero MD Unavailable Luis Eduardo Thompson MD Unavailable Selvin Mina MD, PhD Unavailable [phone] Wesley Stewart MD Unavailable Allergies Active Allergy Reactions Criticality Noted Date [...] the skin every 30 (thirty) days. From [facility] Active coenzyme Q10 300 mg [...] aortic aneurysm 01/17/2024 Overview (01/17/2024): Fol with [facility] card Dr. 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 Cordero she is going to [place] for radiation and getting denosumaab next dose [...] Description 12/09/2024 3:00 PM EDT Office Visit [facility] for [facility], [facility] [address] [facility], 9th [place] [address] Tania Huber MD EGFR-related lung cancer (Primary Dx) 12/09/2024 12:40 PM EDT - 12/09/2024 11:59 PM EDT Hospital Encounter [facility] Imaging Department, [facility] [employer], MRI [address] [address] Tania Huber MD Discharge Disposition: Home or Self Care 12/09/2024 9:55 AM EDT - 12/09/2024 12:39 PM EDT Hospital Encounter [facility] CT Imaging, [address] [place] [address] Tania Huber MD Discharge Disposition: Home or Self Care 11/02/2024 Refill [facility] Internal Medicine [address] [place] [address] Giuseppe Gomez MD Medication Refill 10/07/[address] [facility] Imaging Department, [facility] [employer], MRI [address] [address] 10/07/[address] [facility] CT Imaging, [address] [place] [address] 10/07/[address] [facility] CT Imaging, [address] [place] [address] from Last 3 Months Immunizations Immunization Administration [...] high school, GED, job training, learning the Luxembourger language, technical skills, or developing parenting skills)? [...] Procedure Pass [facility] Imaging Department, [facility], [place] [address] [facility], Floor L1 [place] [address] 12/09/[address] [facility] Imaging Department, [facility] [employer], [place] [address] [facility], Floor [address]1 [place] [address] 03/04/2025 1:00 PM EST Office Visit [facility] Internal Medicine [address] [place] [address] Giuseppe Gomez MD 40 [place] [address] 03/10/2025 12:15 PM EST Blood Draw [facility] Imaging Department, [facility] [facility] [employer], Imaging [facility] [address] [facility], Floor [address]1 [place] [address] Tania Huber MD [address] [address] [email or web address] 03/10/2025 1:[address] [facility] Imaging Department, [facility] [employer], [place] [address] [facility], Floor [address]1 [place] [address] Tania Huber MD 450 [facility] [address] [place] [address] [email or web address] 03/10/2025 3:30 PM EST Office Visit [facility], [facility] [address] [facility], 9th [place] [address] Tania Huber MD 450 [facility] 1240 [place] [address] [email or web address] 03/17/2025 11:30 AM EST Appointment [facility] [place] Department of Radiation Oncology [address] [facility] Building, Floor L2 [place] [address] Wesley Stewart MD 450 [place] [address] [email or web address] Health Maintenance Due Date Last Done Comments HIV ONE-TIME SCREENING (18-65 YEARS) 1978 PNEUMOCOCCAL VACCINES (50+ years) (1 of 2 - PCV) 12/13/1979 ZOSTER VACCINES (1 of 2) 12/13/1979 COLOGUARD 2005 FIT TEST 2005 FOBT 2005 SIGMOIDOSCOPY 2005 VIRTUAL COLONOSCOPY 2005 RSV VACCINE (1 - Risk 60-74 years 1-dose series) 2020 PAP SMEAR 07/16/2023 07/15/2020, 06/28, 02/02/2016 INFLUENZA VACCINE (#1) 2024 , 03/05/2023, 02/09/2022, Additional history exists DEPRESSION SCREENING 02/17/2025 02/18/2024, 01/30/20 23 BLOOD PRESSURE 06/11/2025 12/09/2024 CREATININE LEVEL 12/09/2025 12/09/2024, 04/2023, 11/05/2023, Additional history exists LIPID PANEL 12/09/2025 12/09/2024, 11/2023, 11/05/2023, Additional history exists POTASSIUM LEVEL 12/09/2025 12/09/2024, 04/2023, 11/05/2023, Additional history exists MAMMOGRAM 10/03/2026 [...] 12/09/2024 10:15 AM EDT EGFR-related lung cancer BI MRI BREAST OUTSIDE (NO INTERPRETATION) Routine [...] clinician's provided indication for this examination in [facility]: * Non- small cell lung cancer, metastatic, [...] clinician's provided indication for this examination in [facility]: *Non- small cell lung cancer, metastatic, assess [...] EDT) SODIUM 137 136 - 145 mmol/L [facility] LIC# [id number] POTASSIUM 3.9 3.4 - 5.1 mmol/L [facility] LIC# [id number] CHLORIDE 104 98 - 107 mmol/L [facility] LIC# [id number] CO2 24 22 - 31 mmol/L [facility] LIC# [id number] BUN 18 6 - 23 mg/dL [facility] LIC# [id number] CREATININE 0.89 0.50 - 1.20 mg/dL [facility] LIC# [id number] GLUCOSE 86 70 - 100 mg/dL [facility] LIC# [id number] ALBUMIN 4.4 3.5 - 5.2 g/dL [facility] LIC# [id number] TOTAL PROTEIN 6.6 6.4 - 8.3 g/dL [facility] LIC# [id number] CALCIUM 9.9 8.8 - 10.7 mg/dL [facility] LIC# [id number] ALKALINE PHOSPHATASE 59 35 - 104 U/L [facility] LIC# [id number] TOTAL BILIRUBIN 0.4 0.2 - 1.2 mg/dL [facility] LIC# [id number] AST 23 <33 U/L [facility] LIC# [id number] ALT 23 <34 U/L [facility] LIC# [id number] GLOBULIN 2.2(L) 2.3 - 4.2 g/dL [facility] LIC# [id number] EGFR 73 >59 mL/min/1.7 3m2 [facility] LIC# [id number] Comment:Estimated glomerular filtration rate calculated using the CKD-EPI refit equation. ANION GAP 9 7 - 17 mmol/L [facility] LIC# [id number] Blood 12/09/2024 10:3 9 AM EDT 12/09/2024 11:16 AM EDT us Tania Huber MD LAB BLOOD ORDERABLES Final Resu lt [facility] LIC# [id number] [address] [place] [address] * (ABNORMAL) CBC and differential (12/09/2024 10:39 AM EDT) WBC 3.24(L) 4.00 - 10.00 K/uL [facility] LIC# [id number] RBC 3.40(L) 3.90 - 6.00 M/uL [facility] LIC# [id number] HGB 11.1(L) 11.5 - 16.4 g/dL [facility] LIC# [id number] HCT 32.9(L) 36.0 - 48.0 % [facility] LIC# [id number] PLT 206 150 - 450 K/uL [facility] LIC# [id number] MCV 96.8 80.0 - 100.0 fL [facility] LIC# [id number] MCH 32.6(H) 27.0 - 32.0 pg [facility] LIC# [id number] MCHC 33.7 32.0 - 36.0 g/dL [facility] LIC# [id number] RDW 14.3 11.5 - 14.5 % [facility] LIC# [id number] MPV 9.3 8.4 - 12.0 fL [facility] LIC# [id number] NRBC 0.00 0 /100 WBCs [facility] LIC# [id number] ABSOLUTE NRBC 0.00 0 K/uL [facility] LIC# [id number] DIFF METHOD Auto [facility] LIC# [id number] NEUTS 62.4 48.0 - 76.0 % [facility] LIC# [id number] LYMPHS 25.9 18.0 - 41.0 % [facility] LIC# [id number] MONOS 8.6 4.0 - 11.0 % [facility] LIC# [id number] EOS 2.5 0.0 - 5.0 % [facility] LIC# [id number] BASOS 0.3 0.0 - 1.5 % [facility] LIC# [id number] % IMMATURE GRANS 0.3 0.0 - 1.0 % [facility] LIC# [id number] ABSOLUTE NEUTS 2.02 1.92 - 7.60 K/uL [facility] LIC# [id number] ABSOLUTE LYMPHS 0.84 0.72 - 4.10 K/uL [facility] LIC# [id number] ABSOLUTE MONOS 0.28 0.16 - 1.10 K/uL [facility] LIC# [id number] ABSOLUTE EOS 0.08 0.00 - 0.50 K/uL [facility] LIC# [id number] ABSOLUTE BASOS 0.01 0.00 - 0.15 K/uL [facility] LIC# [id number] ABS IMMATURE GRANS 0.01 0.00 - 0.10 K/uL [facility] LIC# [id number] Blood 12/09/2024 10:3 9 AM EDT 12/09/2024 11:16 AM EDT us Tania Huber MD LAB BLOOD ORDERABLES Final Resu lt Performing Organization Address [facility] Co de Phone Number [facility] LIC# [id number] [address] [place] [address] * Lipid panel (12/09/2024 10:39 AM EDT) CHOLESTEROL 160 <200 mg/dL [facility] LIC# [id number] TRIGLYCERIDES 93 35 - 150 mg/dL [facility] LIC# [id number] HDL 70 40 - 80 mg/dL [facility] LIC# [id number] CALCULATED LDL 71 50 - 129 mg/dL [facility] LIC# [id number] VLDL 19 <31 mg/dL [facility] LIC# [id number] CARDIAC RISK RATIO 2.3 0.0 - 5.0 D [facility] LIC# [id number] Blood 12/09/2024 10:3 9 AM EDT 12/09/2024 11:16 AM EDT us Giuseppe Gomez MD LAB BLOOD ORDERABLES Final Re sult Performing Organization Address [facility] de Phone Number [facility] LIC# [id number] [address] [place] [address] * CT CHEST WITH CONTRAST (12/09/2024 10:15 [...] clinician's provided indication for this examination in [facility]: * Non- small cell lung cancer, metastatic, [...] clinician's provided indication for this examination in [facility]: *Non- small cell lung cancer, metastatic, assess [...] report for the same day chest CT. Result [facility] Tania Huber MD IMG CT ABD/PELVIS Final Result * MRI Breast Outside (No Interpretation) (10/03/2024 12:00 AM EDT) Other Narrative [facility] - 10/07/2024 10:17 AM EDT This study is for PACS storage only and not for interpretation. Result [facility] Tania Huber MD IMG OUTSIDE IMAGING W/OUT INTER PRETATION Final Result Performing Organization Address City/[facility]/ZIP Co de Phone Number [facility] * COLONOSCOPY FOR RESULT ENTRY ONLY (07/28/2024) [facility] Colonoscopy 5 year recall EXTERNAL NON-INTERFACE D REF LAB Result [facility] Historical Provider HEALTH MAINTENANCE Final Result Performing Organization Address [facility] de Phone Number EXTERNAL NON-INTERFACED REF LAB * Outside Glucose,Fasting (11/05/2023) Pathologist [facility] Glucose, fasting - External 92 65 - 99 mg/dL Result [facility] Historical Provider LAB BLOOD ORDERABLES Karli l Result * PAP SMEAR FOR RESULT ENTRY ONLY (07/15/2020) [facility] Pap smear NILM,, Atrophy, HPV negative Result [facility] Historical Provider HEALTH MAINTENANCE Final Result * Hepatitis C antibody, qualitative (03/09/2020) Result [facility] Giuseppe Gomez MD LAB BLOOD ORDERABLES Edited R esult - Final from Last 3 Months or Most Recently Relevant to Health Maintenance Insurance [facility] Advance Directives For more information, please contact: [phone] (9AM - 5PM [facility], Sunday-Sunday) Documents on File Type Date Recorded Patient Feather Duster Winder Expl anation Healthcare Proxy 03/05/2023 Healthcare Proxy Care Teams Early Childhood Education Worker Relationship Specialty Start Date End Date Giuseppe Gomez MD [address] [place] [address] PCP - General 02/15/17 Giuseppe Gomez MD [address] [place] [address] [email or web address] Historical LMR Provider 02/18/17 Tania Huber MD 450 [facility] [address] [place] [address] [email or web address] Medical Oncology 04/10/23 John Cordero MD [address] [place] [address] 04/10/23 Luis Eduardo Thompson MD [address] [place] [address] [place] [address] Pulmonary Disease 10/30/23 Selvin Mina MD, PhD 450 [facility], [address] [place] [address] [email or web address] Radiation Oncology 12/03/23 Wesley Stewart MD [address] [place] [address] [email or web address] Radiation Oncology 03/17/24 Additional Source Comments The information contained in this document represents components of the legal health record. It is not the complete legal health record.[facility]
--- OUTSIDE RECORDS SUMMARY | 2025-01-21 14:37 | XMS_ITS | Encounter Summary ---
Author Organization [facility] Address [address] [place] [address] Care Team Providers Care Crutcher Helper Name Role Phone Giuseppe Gomez MD Primary Care Provider [phone] Encounter Details Date Type Department Care Team (Late st Contact Info) Description 03/13/2023 Scanned Document [facility] Cancer [facility] at [address] [phone] Wesley Penaloza MD [address] [place] [address] Social History Tobacco Use Types Packs/Day Years [...] on filedocumented in this encounter Care Teams Crutcher Helper Relationship Specialty Start Date End Date Giuseppe Gomez MD [address] [place], [place] [address] [address] PCP - General Internal Medicine 03/09/23 documented as of this encounter
--- OUTSIDE RECORDS SUMMARY | 2025-01-21 14:37 | XMS_ITS | Encounter Summary ---
Author Organization [facility] Address [address] [place] [address] Phone Care Team Providers Care Tavern Operator Name Role Phone Giuseppe Gomez MD Primary Care Provider [phone] Giuseppe Gomez MD Unavailable [phone] Tania Huber MD Unavailable [phone] John Cordero MD Unavailable [phone] Luis Eduardo Thompson MD Unavailable [phone] Selvin Mina MD, PhD Unavailable [phone] Wesley Stewart MD Unavailable [phone] Encounter Details Date Type Department Care Team (Late st Contact Info) Description 11/22/2023 Procedure Pass [facility] [place] [address] [place] [address] Social History Tobacco Use Types Packs/Day Years [...] 12/09/2024 Procedure Pass [facility] Imaging Department, [facility] [place], [place] [address] [facility], Floor L1 [place] [address] 12/09/2024 Procedure Pass [facility] Imaging Department, [facility], [place] [address] [facility], Floor L1 [place] [address] 03/04/2025 1:00 PM EST Office Visit [facility] Internal Medicine [address] [place] [address] Giuseppe Gomez MD [address] [place] [address] 03/10/2025 12:15 PM EST Blood Draw [facility] Imaging Department, [facility], Imaging [facility] [address] [facility], Floor L1 [place] [address] Tania Huber MD [address] [address] [email or web address] 03/10/2025 1:30 PM EST Appointment [facility] Imaging Department, [facility], [place] [address] [facility], Floor [address]1 [place] [address] Tania Huber MD [address] [address] [email or web address] 03/10/2025 3:30 PM EST Office Visit [facility] for Thoracic Oncology, [facility] [address] [facility], 9th [place] [address] Tania Huber MD [address] [address] [email or web address] 03/17/2025 11:30 AM EST Appointment [facility] Department of Radiation Oncology [address] [facility], Floor [address]2 [place] [address] Wesley Stewart MD 450 [place] [address] [email or web address] documented as of this encounter Visit Diagnoses Not on filedocumented in this encounter Additional Health Concerns Assessment Noted Time PHQ-9 Depression Total Score: 7 01/30/20 8:13 AM EDT PHQ-2 Depression Total Score: 2 01/30/20 8:14 AM EDT documented as of this encounter Care Teams Tavern Operator Relationship Specialty Start Date End Date Giuseppe Gomez MD [address] [place] [address] PCP - General 02/15/17 Giuseppe Gomez MD [address] [place] [address] Historical LMR Provider 02/18/17 Tania Huber MD 450 [facility] 1240 [place] [address] [email or web address] Medical Oncology 04/10/23 John Cordero MD [address] [place] [address] 04/10/23 Luis Eduardo Thompson MD [address] [place] [address] [place] [address] Pulmonary Disease 10/30/23 Selvin Mina MD, PhD 450 [facility], [facility] 350 [place] [address] [email or web address] Radiation Oncology 12/03/23 Wesley Stewart MD [address] [place] [address] [email or web address] Radiation Oncology 03/17/24 documented as of this encounter Additional Source Comments The information contained in this document represents components of the legal health record. It is not the complete legal health record.[facility]
--- OUTSIDE RECORDS SUMMARY | 2025-01-21 14:37 | XMS_ITS | Encounter Summary ---
Author Organization [facility] Address [address] [employer] [facility] [address] [place] [address] Phone Care Team Providers Care Director Of Surgery Name Role Phone Giuseppe Gomez MD Primary Care Provider [phone] Giuseppe Gomez MD Unavailable [phone] Tania Huber MD Unavailable [phone] John Cordero MD Unavailable Luis Eduardo Thompson MD Unavailable Selvin Mina MD, PhD Unavailable [phone] Wesley Stewart MD Unavailable [phone] Reason for Visit * Reason Onset Date Comments Referral 10/25/2023 [facility] [phone] [facility] requesting a referral for pt Encounter Details Date Type Department Care Team (Late st Contact Info) Description 10/25/2023 Telephone [facility] Internal Medicine [address] [place], [place] [phone] Giuseppe Gomez MD [address] [place], [place] [id number] [email or web address] Referral (Nat [facility] Cancer Mark [phone] is requesting a referral for pt ) [...] high school, GED, job training, learning the Pan[place]ian language, technical skills, or developing parenting skills)? [...] new insurance. She did see someone at [facility] on 10/29. Theyshould send everything over. States [...] patient has been seen/requests to be seen: [facility] 2. Reason for referral/specialist appointment and the [...] referral authorization (enter n/a if not available): [id number] 6. Number of visits requested for referral: 6 7. Fax number of specialist office to send referral authorization: [phone] [facility] Call Center CSS Agent (Please do not reply to this user, as this inbox is not monitored.) Thank you documented in this encounter Plan of Treatment Upcoming Encounters Date Type Department Care Team (Late st Contact Info) Description 12/09/2024 Procedure Pass [facility] Imaging Department, [facility], [place] [address] [facility], Floor [address] [place] [address] 12/09/2024 Procedure Pass [facility] Imaging Department, [facility], [place] [address], [address] [place] [address] 03/04/2025 1:00 PM EST Office Visit [facility] Internal Medicine [address] [place] [address] Giuseppe Gomez MD [address] [place] [address] [email or web address] 03/10/2025 12:15 PM EST Blood Draw [facility] Imaging Department, [facility], Imaging [facility] [address], [facility] L1 [place] [address] Tania Huber MD 450 [facility] 1240 [place] [address] [email or web address] 03/10/2025 1:30 PM EST Appointment [facility] Imaging Department, [facility], [place] [address] [facility], [address] [place] [address] Tania Huber MD 450 [facility] 12[address] [place] [address] [email or web address] 03/10/2025 3:30 PM EST Office Visit [facility] for [facility] Oncology, [facility] 450 [facility], 9th [place] [address] Tania Huber MD [address] [place] [address] [email or web address] 03/17/2025 11:30 AM EST Appointment [facility] Department of Radiation Oncology [address] [place] [address], Floor [address] [place] [address] Wesley Stewart MD [address] [place] [address] [email or web address] documented as of this encounter Visit Diagnoses Diagnosis Malignant neoplasm of unspecified part of unspecified bronchus or lung- Primary documented in this encounter Additional Health Concerns Assessment Noted Time PHQ-9 Depression Total Score: 7 01/30/20 8:13 AM EDT PHQ-2 Depression Total Score: 2 01/30/20 8:14 AM EDT documented as of this encounter Care Teams Director Of Surgery Relationship Specialty Start Date End Date Giuseppe Gomez MD [address] [place] [address] PCP - General 02/15/17 Giuseppe Gomez MD [address] [place] [address] Historical LMR Provider 02/18/17 Tania Huber MD 450 [facility] [address] [place] [address] [employer] [email or web address] Medical Oncology 04/10/23 John Cordero MD [address] [place] [address] 04/10/23 Luis Eduardo Thompson MD [address] [place] [address] [place] [address] Pulmonary Disease 10/30/23 Selvin Mina MD, PhD 450 [facility], HIM [address] [place] [address] [email or web address] Radiation Oncology 12/03/23 Wesley Stewart MD 450 [place] [address] [email or web address] Radiation Oncology 03/17/24 documented as of this encounter Additional Source Comments The information contained in this document represents components of the legal health record. It is not the complete legal health record.[facility]
--- OUTSIDE RECORDS SUMMARY | 2025-01-21 14:38 | XMS_ITS | Encounter Summary ---
Author Organization [facility] Address [address] [place] [address] Phone Care Team Providers Care Clinical Education Coordinator Name Role Phone Giuseppe Gomez MD Primary Care Provider [phone] Giuseppe Gomez MD Unavailable [phone] Tania Huber MD Unavailable [phone] John Cordero MD Unavailable Luis Eduardo Thompson MD Unavailable [phone] Selvin Mina MD, PhD Unavailable [phone] Wesley Stewart MD Unavailable [phone] Encounter Details Date Type Department Care Team (Late st Contact Info) Description 02/05/2024 Procedure Pass [facility], [facility] [place] [place] 450 [facility], [place] [address]1 [place] [address] Social History Tobacco Use Types Packs/Day Years [...] high school, GED, job training, learning the Argentine language, technical skills, or developing parenting skills)? [...] 12/09/2024 Procedure Pass [facility] Imaging Department, [facility] [place] [place] 450 [facility], Floor [address]1 [place] [address] 12/09/2024 Procedure Pass [facility] [place] [facility] Imaging Department, [facility], [place] 450 [facility], [facility] L1 [place] [address] 03/04/2025 1:00 PM EST Office Visit [facility] Internal Medicine 40 [place] [address] Giuseppe Gomez MD 40 [place] [address] 03/10/2025 12:15 PM EST Blood Draw [facility] [place] [facility] Imaging Department, [facility], Imaging Pheeo-gx-Ulll 450 [facility], [place] [address]1 [place] [address] Tania Huber MD [address] [address] [email or web address] 03/10/2025 1:30 PM EST Appointment [facility] [place] [facility] Imaging Department, [facility], [place] 450 [facility], [facility] [address]1 [place] [address] Tania Huber MD [address] [address] [email or web address]@[email or web address] 03/10/2025 3:30 PM EST Office Visit [facility] On[facility], [facility] 450 [facility], 9th [place] [address] Tania Huber MD [address] [address] Maximus@[email or web address] 03/17/2025 11:30 AM EST Appointment [facility] [place] Department of Radiation Oncology 450 [facility], Floor [address] [place] [address] Wesley Stewart MD 450 [place] [address] Deborah@[email or web address] documented as of this encounter Visit Diagnoses Not on filedocumented in this encounter Additional Health Concerns Assessment Noted Time PHQ-9 Depression Total Score: 7 01/30/20 23 8:13 AM EDT PHQ-2 Depression Total Score: 0 02/18/20 24 6:37 PM EDT documented as of this encounter Care Teams Clinical Education Coordinator Relationship Specialty Start Date End Date Giuseppe Gomez MD 40 [place] [address] [email or web address] PCP - General 02/15/17 Giuseppe Gomez MD 40 [place] [address] [email or web address] Historical LMR Provider 02/18/17 Tania Huber MD 450 [facility] 1240 [place] [address] [email or web address] Medical Oncology 04/10/23 John Cordero MD [address] [place] [address] 04/10/23 Luis Eduardo Thompson MD [address] [place] [address] [place] [address] Pulmonary Disease 10/30/23 Selvin Mina MD, PhD 450 [facility], [facility] 350 [place] [address] [email or web address] Radiation Oncology 12/03/23 Wesley Stewart MD [address] [place] [address] [email or web address] Radiation Oncology 03/17/24 documented as of this encounter Additional Source Comments The information contained in this document represents components of the legal health record. It is not the complete legal health record.[facility]
--- OUTSIDE RECORDS SUMMARY | 2025-01-21 14:38 | XMS_ITS | Encounter Summary ---
Author Organization [facility] Address [address] [place] [address] Phone Care Team Providers Care Wet Process Miller Name Role Phone Giuseppe Gomez MD Primary Care Provider [phone] Giuseppe Gomez MD Unavailable [phone] Tania Huber MD Unavailable [phone] John Cordero MD Unavailable Luis Eduardo Thompson MD Unavailable Selvin Mina MD, PhD Unavailable [phone] Wesley Stewart MD Unavailable [phone] Encounter Details Date Type Department Care Team (Late st Contact Info) Description 02/05/2024 Procedure Pass [facility], [facility] [place] [place] 450 [facility], Floor L1 [place] [address] Social History Tobacco Use Types Packs/Day Years [...] high school, GED, job training, learning the Kuwaiti language, technical skills, or developing parenting skills)? [...] 12/09/2024 Procedure Pass [facility] Imaging Department, [facility] [place] [place] 450 [facility], Floor L1 [place] [address] 12/09/2024 Procedure Pass [facility] Imaging Department, [facility], [place] 450 [facility], [facility] L1 [place] [address] 03/04/2025 1:00 PM EST Office Visit [facility] Internal Medicine 40 [place] [address] Giuseppe Gomez MD 40 [place] [address] 03/10/2025 12:15 PM EST Blood Draw [facility] Imaging Department, [facility], Imaging Bfmaq-no-Oxcx 450 [facility], Floor L1 [place] [address] Tania Huber MD [address] [address] Maximus@[email or web address] 03/10/2025 1:30 PM EST Appointment [facility] Imaging Department, [facility], [place] 450 [facility], [facility] L1 [place] [address] Tania Huber MD [address] [address] [email or web address] 03/10/2025 3:30 PM EST Office Visit [facility] for [facility]acic Oncology, [facility] 450 [facility], 9th [place] [address] Tania Huber MD [address] [address] Maximus@[email or web address] 03/17/2025 11:30 AM EST Appointment [facility] [place] Department of Radiation Oncology 450 [facility], Floor L2 [place] [address] Wesley Stewart MD 450 [place] [address] [email or web address] documented as of this encounter Visit Diagnoses Not on filedocumented in this encounter Additional Health Concerns Assessment Noted Time PHQ-9 Depression Total Score: 7 01/30/20 23 8:13 AM EDT PHQ-2 Depression Total Score: 0 02/18/20 24 6:37 PM EDT documented as of this encounter Care Teams Wet Process Miller Relationship Specialty Start Date End Date Giuseppe Gomez MD 40 [place] [address] [email or web address] PCP - General 02/15/17 Giuseppe Gomez MD 40 [place] [address] [email or web address] Historical LMR Provider 02/18/17 Tania Huber MD 450 [facility] 1240 [place] [address] [email or web address] Medical Oncology 04/10/23 John Cordero MD [address] [place] [address] 04/10/23 Luis Eduardo Thompson MD [address] [place] [address] [place] [address] Pulmonary Disease 10/30/23 Selvin Mina MD, PhD 450 [facility], [facility] 350 [place] [address] [email or web address] Radiation Oncology 12/03/23 Wesley Stewart MD [address] [place] [phone] [email or web address] Radiation Oncology 03/17/24 documented as of this encounter Additional Source Comments The information contained in this document represents components of the legal health record. It is not the complete legal health record.[facility]
--- OUTSIDE RECORDS SUMMARY | 2025-01-21 14:38 | XMS_ITS | Encounter Summary ---
Author Organization [facility] Address [address] [place] [address] Phone Care Team Providers Care Colorist Dyer Name Role Phone Giuseppe Gomez MD Primary Care Provider [phone] Giuseppe Gomez MD Unavailable [phone] Tania Huber MD Unavailable [phone] John Cordero MD Unavailable Luis Eduardo Thompson MD Unavailable Selvin Mina MD, PhD Unavailable [phone] Wesley Stewart MD Unavailable [phone] Encounter Details Date Type Department Care Team (Late st Contact Info) Description 03/25/2024 Procedure Pass [facility] Imaging Department, [facility] [place], [place] 450 [facility], Floor L1 [place] [address] Social History Tobacco Use Types Packs/Day Years [...] st Contact Info) Description 12/09/2024 Procedure Pass [facility] Imaging Department, [facility], [place] 450 [facility], Floor [address]1 [place] [address] 12/09/2024 Procedure Pass [facility] Imaging Department, [facility], [place] 450 [facility], [facility] L1 [place] [address] 03/04/2025 1:00 PM EST Office Visit [facility] Internal Medicine 40 [place] [address] Giuseppe Gomez MD 40 [place] [address] [email or web address] 03/10/2025 12:15 PM EST Blood Draw [facility] Imaging Department, [facility], Imaging Eedwg-dv-Dtth 450 [facility], [facility] L1 [place] [address] Tania Huber MD [address] [place] [address] [email or web address] 03/10/2025 1:30 PM EST Appointment [facility] Imaging Department, [facility], [place] 450 [facility], Floor [address]1 [place] [address] Tania Huber MD [address] [address] Maximus@[facility] 03/10/2025 3:30 PM EST Office Visit [facility] Center for Thoracic On[facility], [facility] 450 [facility], 9th [place] [address] Tania Huber MD 450 [facility] 1240 [place] [address] [email or web address]@[email or web address] 03/17/2025 11:30 AM EST Appointment [facility] Department of Radiation Oncology 450 [facility], Floor [address]2 [place] [address] Wesley Stewart MD 450 [place] [address] Deborah@[email or web address] documented as of this encounter Visit Diagnoses Not on filedocumented in this encounter Additional Health Concerns Assessment Noted Time PHQ-9 Depression Total Score: 7 01/30/20 23 8:13 AM EDT PHQ-2 Depression Total Score: 0 02/18/20 24 6:37 PM EDT documented as of this encounter Care Teams Colorist Dyer Relationship Specialty Start Date End Date Giuseppe Gomez MD [address] [place] [address] [email or web address] PCP - General 02/15/17 Giuseppe Gomez MD [address] [place] [address] Historical LMR Provider 02/18/17 Tania Huber MD 450 [facility] 1240 [place] [address] [email or web address]@[email or web address] Medical Oncology 04/10/23 John Cordero MD [address] [place] [address] 04/10/23 Luis Eduardo Thompson MD [address] [place] [address] [place] [address] Pulmonary Disease 10/30/23 Selvin Mina MD, PhD [address] [place] [address] [email or web address] Radiation Oncology 12/03/23 Wesley Stewart MD [address] [place] [address] [email or web address] Radiation Oncology 03/17/24 documented as of this encounter Additional Source Comments The information contained in this document represents components of the legal health record. It is not the complete legal health record.[facility]
--- OUTSIDE RECORDS SUMMARY | 2025-01-21 14:38 | XMS_ITS | Encounter Summary ---
Author Organization [facility] Address [address] [place] [address] Phone Care Team Providers Care Frame And Scrap Crusher Name Role Phone Giuseppe Gomez MD Primary Care Provider [phone] Giuseppe Gomez MD Unavailable [phone] Tania Huber MD Unavailable [phone] John Cordero MD Unavailable [phone] Luis Eduardo Thompson MD Unavailable Selvin Mina MD, PhD Unavailable [phone] Wesley Stewart MD Unavailable [phone] Encounter Details Date Type Department Care Team (Late st Contact Info) Description 03/25/2024 Procedure Pass [facility] Imaging Department, [facility] [place] [place] 450 [facility], Floor L1 [place] [address] Social History Tobacco Use Types Packs/Day Years [...] high school, GED, job training, learning the Lebanese language, technical skills, or developing parenting skills)? [...] [facility] Imaging Department, [facility], [place] 450 [facility], Floor L1 [place] [address] 12/09/2024 Procedure Pass [facility] Imaging Department, [facility], [place] 450 [facility], [facility] L1 [place] [address] 03/04/2025 1:00 PM EST Office Visit [facility] Internal Medicine 40 [place] [address] Giuseppe Gomez MD 40 [place] [address] [email or web address] 03/10/2025 12:15 PM EST Blood Draw [facility] Imaging Department, [facility], Imaging Qplfu-mr-Kifl 450 [facility], [facility] L1 [place] [address] Tania Huber MD [address] [place] [address] [email or web address] 03/10/2025 1:30 PM EST Appointment [facility] Imaging Department, [facility], [place] 450 [facility], Floor [address]1 [place] [address] Tania Huber MD [address] [address] Maximus@[facility] 03/10/2025 3:30 PM EST Office Visit [facility] for Thoracic Oncology, [facility] 450 [facility], 9th [place] [address] Tania Huber MD 450 [facility] 1240 [place] [address] Maximus@[email or web address] 03/17/2025 11:30 AM EST Appointment [facility] Department of Radiation Oncology 450 [facility], Floor L2 [place] [address] Wesley Stewart MD 450 [place] [address] [email or web address] documented as of this encounter Visit Diagnoses Not on filedocumented in this encounter Additional Health Concerns Assessment Noted Time PHQ-9 Depression Total Score: 7 01/30/20 23 8:13 AM EDT PHQ-2 Depression Total Score: 0 02/18/20 24 6:37 PM EDT documented as of this encounter Care Teams Frame And Scrap Crusher Relationship Specialty Start Date End Date Giuseppe Gomez MD [address] [place] [address] [email or web address] PCP - General 02/15/17 Giuseppe Gomez MD [address] [place] [address] Historical LMR Provider 02/18/17 Tania Huber MD 450 [facility] 1240 [place] [address] Maximus@[email or web address] Medical Oncology 04/10/23 John Cordero MD [address] [place] [address] 04/10/23 Luis Eduardo Thompson MD [address] [place] [address] [place] [address] Pulmonary Disease 10/30/23 Selvin Mina MD, PhD [address] [place] [address] [email or web address] Radiation Oncology 12/03/23 Wesley Stewart MD [address] [place] [address] [email or web address] Radiation Oncology 03/17/24 documented as of this encounter Additional Source Comments The information contained in this document represents components of the legal health record. It is not the complete legal health record.[facility]
== END 2025-01-21 12:23 | disposition home or self-care (01) ==
LOC: HO.HCS 11:31
PROVIDERS: PCP Internal Medicine; Visit Provider Internal Medicine Cardiovascular Disease
DX: I71.21 Aneurysm of the ascending aorta, without rupture (principal)
CPT/HCPCS: 93010; 99214

== ENCOUNTER → 2025-01-21 11:30 | Outpatient (BNVA) | payer OTHER, SELFPAY | PROVIDERS: PCP Internal Medicine; Visit Provider Internal Medicine Cardiovascular Disease | DX: I71.21 Aneurysm of the ascending aorta, without rupture (principal) | CPT/HCPCS: 93005 ==